=== PATIENT | female | born 1945 | race Caucasian/White ===

== ENCOUNTER → 2017-01-29 | Outpatient (CLI) | payer OTHER, MEDICARE ==
[2017-01-29 11:54] LABS: BASO % 0.3 %; BASO ABS # 0.02 K/uL (0-0.2); COMPLETE YES; EOS % 2.3 %; HEMATOCRIT 40.2 % (37-47); LYMPH % 42.8 %; MEAN CELL VOLUME 97.1 fL (80-100); MEAN CORPUSCULAR HEMOGLOBIN 33.1 pg (25-34); MEAN CORPUSCULAR HGB CONC 34.1 g/dl (32-36); MEAN PLATELET VOLUME 10.3 fL (7.4-10.4); MONO % 7.1 %; NEUT % 47.5 %; PLATELET COUNT 248 K/uL (130-400); RED BLOOD COUNT 4.14 M/uL (4.2-5.4); WHITE BLOOD COUNT 7.01 K/uL (4.8-10.8)
[2017-01-29 12:12] LABS: BLOOD UREA NITROGEN 16 mg/dl (7-18); BUN/CREATININE RATIO 17.2 (10-20); CALCIUM 9.4 mg/dl (8.5-10.1); CARBON DIOXIDE 25 mmol/L (21-32); CHLORIDE 105 mmol/L (98-107); CREATININE 0.94 mg/dl (0.60-1.20); GLUCOSE 80 mg/dl (70-99); POTASSIUM 4.1 mmol/L (3.5-5.1); SODIUM 139 mmol/L (136-145)
== END | disposition home or self-care (01) ==
LOC: C.LAB1850 09:45
PROVIDERS: ATTEND Internal Medicine
DX: E55.9 Vitamin D deficiency, unspecified (principal); R06.02 Shortness of breath

== ENCOUNTER 2021-03-15 14:09 | Inpatient (IN) ==
[2021-03-15] MEDS ORDERED: ACETAMINOPHEN 1000 MG/100 ML IV IV STA (14:45)
[2021-03-15] MEDS ORDERED: ONDANSETRON INJ 2 MG/ML 2 ML VIAL IV STA (14:45)
[2021-03-15] MEDS ORDERED: MoRPHine SULFATE 2 MG/ML CARP IV PRN (14:45)
--- NOTE | 2021-03-15 15:09 | Emergency Department Note ---
Impression & Plan Acute right hip pain, Closed hip fracture, Fall ED Provider Note NAME: VENESSA PETERS AGE: 75 SEX: F : 1945 ARRIVES VIA: Ambulance INFORMANT: [Patient] ED PROVIDER(S): [Javi Rosales MD] CHIEF COMPLAINT: Right hip pain HISTORY OF PRESENT ILLNESS: Patient is a 75-year-old female who states that about an hour and a half ago she tripped and fell landing on her right hip. She cannot walk and the pain is an 8/10. No other injuries. She did not lose her consciousness, she did not hit her head. She has no neck pain, back pain, extremity pain. There is no nu mbness or tingling down in the right leg. She was brought by ambulance. Of note, she is not on any blood thinners. The patient has recently been in baseline health. REVIEW OF SYSTEMS: See HPI for pertinent positives and negatives. A total of ten systems were reviewed and were otherwise negative. PMHx/PSHx: See Below SOCIAL HISTORY: See Below. PHYSICAL EXAM: GENERAL: Patient is in moderate distress from pain. HEENT: No acute trauma, normocephalic atraumatic, mucous membranes moist, no nasal congestion, no scleral icterus. NECK: No stridor, no adenopathy, no C-spine tenderness, trachea is midline. LUNGS: Clear to auscultation bilaterally, no wheeze, no rhonchi, breath sounds equal. HEART: Without murmurs gallops or rubs, regular rate and rhythm. ABDOMEN: Soft, nontender, bowel sounds positive, no hernias, no peritonitis. EXTREMITIES: No cyanosis. Patient has pain to palpate the right posterior hip and there is pain to move the hip. She currently is sitting at a 45 degree angle with her knee flexed slightly and her hip externally rotated. No evidence for distal right lower extremity neurovascular compromise. NEUROLOGIC: Oriented x 3, no acute motor or sensory deficits, no focal weakness. SKIN: No rash, no jaundice, no diaphoresis. DIFFERENTIAL DIAGNOSIS: Fracture, dislocation, neurovascular compromise, contusion, hematoma, compartme nt syndrome, soft tissue injury, as well as other pathologies. EMERGENCY DEPARTMENT COURSE/PROCEDURES: ECG: Indication was possible hip fracture. The ECG shows a normal sinus rhythm with some baseline diffuse artifact. There is some nonspecific ST change in the inferior and lateral leads. No ST elevation, no PVCs. The rate is 70, the QTc is 462. Continuous Cardiac Monitoring: An order was placed for continuous cardiac monitoring. The monitor shows a rate of 68 with normal sinus rhythm. MEDICAL DECISION MAKING: There is a mild leukocytosis, this certainly could be consistent with infection or just her pain. There is a normal hemoglobin and platelet count. There is no coagulopathy. No concerning electrolyte abnormality, no kidney failure. No liver enzyme elevation. Urinalysis does not show infection. Covid and flu testing returned negative. Chest film did not show pneumonia or CHF. Right hip and pelvis films were performed and there is an intertrochanteric right hip fracture, no pelvic fracture. On exam, there was no evidence for right lower extremity neurovascular compromise. The patient was given IV morphine for pain, she eventually was given IV Dilaudid, IV Toradol and IV Tylenol. She was given IV Zofran. The patient is more comfortable since being medicated. I did speak with the patient and her family about the findings. I did consult orthopedics and spoke with the on-call hospitalist. Case management has been involved. Patient is going to require orthopedic intervention. It appears her injury complex is isolated to the right hip. Past Med/Surg History Medical History Hx of basal cell carcinoma Hx of complications due to general anesthesia Hx of endometriosis Hx of hematuria Hx of migraine with aura Surgical History H/O colonoscopy History of tubal ligation Hx of cholecystectomy Hx of tonsillectomy Family History Other Bladder cancer Breast cancer Gastrointestinal bleeding Hypertension Kidney stones Multiple sclerosis Social History Smoking Status: Never smoker Hx Alcohol Use: No Hx Substance Use: No marital status: current occupational status: retired Feels Safe at Home: Yes Seatbelt Use: always Allergies Allergies Allergy/AdvReac Type Severity Reaction Status Date / Time acetaminophen [From Percocet] AdvReac Verified 11/07/20 08:57 oxycodone [From Percocet] AdvReac Verified 11/07/20 08:57 Penicillins AdvReac Verified 11/07/20 08:57 verapamil AdvReac Verified 11/07/20 08:57 Codeine Derivatives Allergy Mild Uncoded 08/02/20 09:49 Home Meds Home Medications Medication Instructions Recorded Confirmed cholecalciferol (vitamin D3) 50 2,000 units PO DAILY cap 09/22/19 03/15/21 mcg (2,000 unit) capsule escitalopram oxalate 20 mg tablet 20 mg PO DAILY #30 tab 09/22/19 03/15/21 omeprazole 20 mg capsule,delayed 20 mg PO DAILY #30 cap 09/22/19 03/15/21 release Previous Rx's Medication Instructions Recorded albuterol sulfate 90 mcg/actuation 2 inh INHALATION Q4H PRN #8.5 g 08/13/20 aerosol inhaler Results & Data (ED) Vital Signs Vital Signs - 24 hr 03/15/21 14:13 03/15/21 15:53 03/15/21 17:00 Temperature 36.7 C Temperature Source Oral Pulse Rate 68 Pulse Rate [Apical] 78 95 H Respiratory Rate 18 18 18 Blood Pressure 166/80 H Blood Pressure [Left Arm] 172/86 H 169/99 H Blood Pressure Mean 108 Blood Pressure Mean [Left Arm] 114 122 Pulse Oximetry 99 98 97 Oxygen Delivery Method Room Air Room Air Room Air Sepsis Recent Fever Within 48 Hours No Sepsis New/Unexplained Change in Mental Status No Sepsis Action Taken by Nursing No Action Required Home Medications Current Medication List: was personally reviewed by me Laboratory Data Attestation: I reviewed the patient's lab results. Result diagrams: 03/15/21 15:00 03/15/21 15:00 Lab Results 03/15/21 03/15/21 03/15/21 Range/Units 13:40 15:00 15:00 WBC 14.18 H (4.8-10.8) K/uL RBC 4.21 (4.2-5.4) M/uL Hgb 14.4 (12.0-16.0) g/dL Hct 41.2 (37-47) % MCV 97.9 (80-100) fL MCH 34.2 H (25-34) pg MCHC 35.0 (32-36) g/dL RDW Std Deviation 45.9 (36.4-46.3) fL RDW Coeff of Rod 12.9 (11.5-14.5) % Plt Count 301 (130-400) K/uL MPV 9.8 (7.4-10.4) fL Immature Gran % (Auto) 0.4 % Neut % (Auto) 77.6 % Lymph % (Auto) 15.9 % [place] % (Auto) 5.2 % Eos % (Auto) 0.8 % Baso % (Auto) 0.1 % Neut # (Auto) 10.99 H (1.4-6.5) K/uL Lymph # (Auto) 2.26 (1.2-3.4) K/uL [place] # (Auto) 0.74 H (0.11-0.59) K/uL Eos # (Auto) 0.12 (0-0.5) K/uL Baso # (Auto) 0.02 (0-0.2) K/uL Immature Gran # (Auto) 0.05 H (0.00-0.02) K/uL PT 10.2 (9.0-12.0) Seconds INR 1.0 (0.9-1.1) APTT 22.3 (21.0-31.0) Seconds PTT Ratio 0.8 Sodium (136-145) mmol/L Potassium (3.5-5.1) mmol/L Chloride (98-107) mmol/L Carbon Dioxide (21-32) mmol/L Anion Gap (3-11) BUN (7-18) mg/dl Creatinine (0.6-1.2) mg/dl Est Cr Clr Drug Dosing ml/min Est GFR ( Amer) Est GFR (Non-Af Amer) BUN/Creatinine Ratio (10-20) Glucose (70-99) mg/dl Calcium (8.5-10.1) mg/dl Total Bilirubin (0.2-1) mg/dl AST (15-37) U/L ALT (12-78) U/L Alkaline Phosphatase (45-117) U/L Total Protein (6.4-8.2) gm/dl Albumin (3.4-5.0) gm/dl Globulin (2.5-4.0) gm/dl Albumin/Globulin Ratio (0.9-2) Urine Color Yellow Urine Appearance Clear (Clear) Urine pH 5.5 (4.5-7.5) Ur Specific [place] 1.024 (1.000-1.030) Urine Protein Negative (Negative) Urine Glucose (UA) Negative (Negative) Urine Ketones 1+ H (Negative) Urine Blood Negative (Negative) Urine Nitrite Negative (Negative) Urine Bilirubin Negative (Negative) Urine Urobilinogen Negative (Negative) Ur Leukocyte Esterase Negative (Negative) COVID-19 Eval Order SARS-CoV-2 (PCR) (Negative) Influenza Type A (PCR) (Neg) Influenza Type B (PCR) (Neg) RSV (RT-PCR) (Neg) Blood Type Antibody Screen 03/15/21 03/15/21 03/15/21 Range/Units 15:00 15:08 16:45 WBC (4.8-10.8) K/uL RBC (4.2-5.4) M/uL Hgb (12.0-16.0) g/dL Hct (37-47) % MCV (80-100) fL MCH (25-34) pg MCHC (32-36) g/dL RDW Std Deviation (36.4-46.3) fL RDW Coeff of Rod (11.5-14.5) % Plt Count (130-400) K/uL MPV (7.4-10.4) fL Immature Gran % (Auto) % Neut % (Auto) % Lymph % (Auto) % [place] % (Auto) % Eos % (Auto) % Baso % (Auto) % Neut # (Auto) (1.4-6.5) K/uL Lymph # (Auto) (1.2-3.4) K/uL [place] # (Auto) (0.11-0.59) K/uL Eos # (Auto) (0-0.5) K/uL Baso # (Auto) (0-0.2) K/uL Immature Gran # (Auto) (0.00-0.02) K/uL PT (9.0-12.0) Seconds INR (0.9-1.1) APTT (21.0-31.0) Seconds PTT Ratio Sodium 138 (136-145) mmol/L Potassium 3.7 (3.5-5.1) mmol/L Chloride 108 H (98-107) mmol/L Carbon Dioxide 25 (21-32) mmol/L Anion Gap 5.0 (3-11) BUN 17 (7-18) mg/dl Creatinine 0.83 (0.6-1.2) mg/dl Est Cr Clr Drug Dosing 57.3 ml/min Est GFR ( Amer) 81.1 Est GFR (Non-Af Amer) 70.0 BUN/Creatinine Ratio 20.8 H (10-20) Glucose 129 H (70-99) mg/dl Calcium 8.9 (8.5-10.1) mg/dl Total Bilirubin 0.5 (0.2-1) mg/dl AST 31 (15-37) U/L ALT 41 (12-78) U/L Alkaline Phosphatase 86 (45-117) U/L Total Protein 7.4 (6.4-8.2) gm/dl Albumin 3.6 (3.4-5.0) gm/dl Globulin 3.8 (2.5-4.0) gm/dl Albumin/Globulin Ratio 0.9 (0.9-2) Urine Color Urine Appearance (Clear) Urine pH (4.5-7.5) Ur Specific [place] (1.000-1.030) Urine Protein (Negative) Urine Glucose (UA) (Negative) Urine Ketones (Negative) Urine Blood (Negative) Urine Nitrite (Negative) Urine Bilirubin (Negative) Urine Urobilinogen (Negative) Ur Leukocyte Esterase (Negative) COVID-19 Eval Order CovFluRsv at [facility] SARS-CoV-2 (PCR) (Negative) Influenza Type A (PCR) (Neg) Influenza Type B (PCR) (Neg) RSV (RT-PCR) (Neg) Blood Type O Positive Antibody Screen NEGATIVE 03/15/21 Range/Units 16:45 WBC (4.8-10.8) K/uL RBC (4.2-5.4) M/uL Hgb (12.0-16.0) g/dL Hct (37-47) % MCV (80-100) fL MCH (25-34) pg MCHC (32-36) g/dL RDW Std Deviation (36.4-46.3) fL RDW Coeff of Rod (11.5-14.5) % Plt Count (130-400) K/uL MPV (7.4-10.4) fL Immature Gran % (Auto) % Neut % (Auto) % Lymph % (Auto) % [place] % (Auto) % Eos % (Auto) % Baso % (Auto) % Neut # (Auto) (1.4-6.5) K/uL Lymph # (Auto) (1.2-3.4) K/uL [place] # (Auto) (0.11-0.59) K/uL Eos # (Auto) (0-0.5) K/uL Baso # (Auto) (0-0.2) K/uL Immature Gran # (Auto) (0.00-0.02) K/uL PT (9.0-12.0) Seconds INR (0.9-1.1) APTT (21.0-31.0) Seconds PTT Ratio Sodium (136-145) mmol/L Potassium (3.5-5.1) mmol/L Chloride (98-107) mmol/L Carbon Dioxide (21-32) mmol/L Anion Gap (3-11) BUN (7-18) mg/dl Creatinine (0.6-1.2) mg/dl Est Cr Clr Drug Dosing ml/min Est GFR ( Amer) Est GFR (Non-Af Amer) BUN/Creatinine Ratio (10-20) Glucose (70-99) mg/dl Calcium (8.5-10.1) mg/dl Total Bilirubin (0.2-1) mg/dl AST (15-37) U/L ALT (12-78) U/L Alkaline Phosphatase (45-117) U/L Total Protein (6.4-8.2) gm/dl Albumin (3.4-5.0) gm/dl Globulin (2.5-4.0) gm/dl Albumin/Globulin Ratio (0.9-2) Urine Color Urine Appearance (Clear) Urine pH (4.5-7.5) Ur Specific [place] (1.000-1.030) Urine Protein (Negative) Urine Glucose (UA) (Negative) Urine Ketones (Negative) Urine Blood (Negative) Urine Nitrite (Negative) Urine Bilirubin (Negative) Urine Urobilinogen (Negative) Ur Leukocyte Esterase (Negative) COVID-19 Eval Order SARS-CoV-2 (PCR) NEGATIVE (Negative) Influenza Type A (PCR) Negative (Neg) Influenza Type B (PCR) Negative (Neg) RSV (RT-PCR) Negative (Neg) Blood Type Antibody Screen Administered Medications Discontinued Medications Acetaminophen (Acetaminophen 1000 Mg/100 Ml Iv) 1,000 mg IV NOW STA Stop: 03/15/21 14:46 Last Admin: 03/15/21 15:09 Dose: 1,000 mg Documented by: [id number] Hydromorphone HCl (Hydromorphone Inj 0.5 Mg/0.5 Ml Syr) 0.5 mg IV NOW STA Stop: 03/15/21 15:35 Last Admin: 03/15/21 15:50 Dose: 0.5 mg Documented by: [id number] Ketorolac Tromethamine (Ketorolac Tromethamine 15 Mg/Ml Vial) 15 mg IV NOW STA Stop: 03/15/21 15:35 Last Admin: 03/15/21 15:49 Dose: 15 mg Documented by: [id number] Morphine Sulfate (Morphine Sulfate 2 Mg/Ml Carp) 4 mg IV Q1H PRN PRN Reason: Moderate Pain (Rating 3,4,5,6) Stop: 03/29/21 14:44 Last Admin: 03/15/21 15:09 Dose: 4 mg Documented by: [id number] Ondansetron HCl (Ondansetron Inj 2 Mg/Ml 2 Ml Vial) 4 mg IV NOW STA Stop: 03/15/21 14:46 Last Admin: 03/15/21 15:09 Dose: 4 mg Documented by: [id number] Imaging Data Radiologist's Impression: Chest X-Ray 03/15/21 14:45 SINGLE VIEW CHEST CLINICAL HISTORY: Fall. Hip fracture. FINDINGS: An AP, portable, upright chest radiograph is compared to study dated 10/26/2019. The cardiomediastinal silhouette is unremarkable. Chronic interstitial thickening is similar to previous. There is mild bibasilar atelec tasis. No airspace consolidation or large pleural effusion is identified. No pneumothorax is seen. The skeletal structures are osteopenic. There are healed left-sided rib fractures. IMPRESSION: No active disease in the chest. ACT 112: Negative or not required by law. Electronically signed by: Javi Senior M.D. 03/15/2021 3:33 PM Hip/Pelvis X-Ray 03/15/21 14:45 XR hip RT 2V w pelvis CLINICAL HISTORY: fall, pain COMPARISON: CT of the abdomen and pelvis June 12, 2015. FINDINGS: Note is made of an acute comminuted displaced intertrochanteric fracture of the right femur with subtrochanteric extension. No acute fracture within the pelvis is identified. No proximal left femoral fracture is noted. IMPRESSION: Acute comminuted displaced intertrochanteric fracture of the right femur with subtrochanteric extension. ACT 112: Negative or not required by law. Electronically signed by: Juan Weber M.D. 03/15/2021 4:23 PM Head Trauma GCS Score: 15 Discharge Plan Visit Data Chief Complaint: Hip Pain ED Provider: Javi Rosales Discharge Problem: Acute right hip pain, Closed hip fracture, Fall Patient Disposition: Home - Self-Care Condition: Fair Forms Stand Alone Forms: [facility], Virtual Emergency Department, Important Visit Information Prescriptions Prescriptions: No Action albuterol sulfate 90 mcg/actuation HFA aerosol inhaler 2 inh inhalation Q4H PRN (Reason: shortness of breath or wheezing) Qty: 8.5 RF: 5 escitalopram oxalate 20 mg tablet 20 mg PO DAILY Qty: 30 RF: 0 omeprazole 20 mg capsule,delayed release(DR/EC) 20 mg PO DAILY Qty: 30 RF: 0 cholecalciferol (vitamin D3) 2,000 unit capsule 2,000 units PO DAILY RF: 0 Referrals Referrals: Amado Watson MD [Primary Care Provider] - Discharge Problem: Closed hip fracture Qualifiers: Encounter type: initial encounter Laterality: right Qualified Code(s): S72.001A - Fracture of unspecified part of neck of right femur, initial encounter for closed fracture Fall Qualifiers: Encounter type: initial encounter Qualified Code(s): W19.XXXA - Unspecified fall, initial encounter
[2021-03-15 15:15] LABS: Basophils # (auto) 0.02 K/uL (0-0.2); Basophils % (auto) 0.1 %; Eosinophils # (auto) 0.12 K/uL (0-0.5); Eosinophils % (auto) 0.8 %; Hematocrit (blood only) 41.2 % (37-47); Hemoglobin 14.4 g/dL (12.0-16.0); Immature Granulocytes # (auto) 0.05 K/uL (0.00-0.02); Immature Granulocytes % (auto) 0.4 %; Lymphocytes # (auto) 2.26 K/uL (1.2-3.4); Lymphocytes % (auto) 15.9 %; Mean Corpuscular Hemoglobin 34.2 pg (25-34); Mean Corpuscular Volume 97.9 fL (80-100); Mean Platelet Volume 9.8 fL (7.4-10.4); Monocytes # (auto) 0.74 K/uL (0.11-0.59); Monocytes % (auto) 5.2 %; Neutrophils # (auto) 10.99 K/uL (1.4-6.5); Neutrophils % (auto) 77.6 %; Platelet Count 301 K/uL (130-400); RDW Coefficient of Variation 12.9 % (11.5-14.5); RDW Standard Deviation 45.9 fL (36.4-46.3); Red Blood Count 4.21 M/uL (4.2-5.4); White Blood Count 14.18 K/uL (4.8-10.8)
[2021-03-15] MEDS ORDERED: KETOROLAC TROMETHAMINE 15 MG/ML VIAL IV STA (15:34)
[2021-03-15] MEDS ORDERED: HYDROmorphone INJ 0.5 MG/0.5 ML SYR IV STA (15:34)
--- NOTE | 2021-03-15 15:34 | XRay Report ---
SINGLE VIEW CHEST CLINICAL HISTORY: Fall. Hip fracture. FINDINGS: An AP, portable, upright chest radiograph is compared to study dated 10/26/2019. The cardiom ediastinal silhouette is unremarkable. Chronic interstitial thickening is similar to previous. There is mild bibasilar atelectasis. No airspace consolidation or large pleural effusion is identified. No pneumothorax is seen. The skeletal structures are osteopenic. There are healed left-sided rib fractur es. IMPRESSION: No active disease in the chest. ACT 112: Negative or not required by law. Electronically signed by: Javi Senior M.D. 03/15/2021 3:33 PM
[2021-03-15 15:37] LABS: Partial Thromboplastin Ratio 0.8; Partial Thromboplastin Time 22.3 Seconds (21.0-31.0); Prothrombin Time 10.2 Seconds (9.0-12.0)
[2021-03-15 15:39] LABS: Albumin Level 3.6 gm/dl (3.4-5.0); BUN Creatinine Ratio 20.8 (10-20); Calcium 8.9 mg/dl (8.5-10.1); Creatinine Clr Calc Pharmacy 57.3 ml/min; Est GFR (African American) 81.1; Potassium 3.7 mmol/L (3.5-5.1)
[2021-03-15 15:40] LABS: Albumin Globulin Ratio 0.9 (0.9-2); Bilirubin,Total 0.5 mg/dl (0.2-1); Globulin 3.8 gm/dl (2.5-4.0); Total Protein 7.4 gm/dl (6.4-8.2)
[2021-03-15 15:52] LABS: Appearance Urine Clear (Clear); Bilirubin Urine Negative (Negative); Blood Urine Negative (Negative); Color Urine Yellow; Glucose Urine UA Negative (Negative); Ketones Urine 1+ (Negative); Leukocyte Esterase Urine Negative (Negative); Nitrite Urine Negative (Negative); Protein Urine Negative (Negative); Specific Gravity Urine 1.024 (1.000-1.030); Urobilinogen Urine Negative (Negative); pH Urine 5.5 (4.5-7.5)
--- NOTE | 2021-03-15 16:25 | XRay Report ---
XR hip RT 2V w pelvis CLINICAL HISTORY: fall, pain COMPARISON: CT of the abdomen and pelvis June 12, 2015. FINDINGS: Note is made of an acute comminuted displaced intertrochanteric fracture of the right femu r with subtrochanteric extension. No acute fracture within the pelvis is identified. No proximal left femoral fracture is noted. IMPRESSION: Acute comminuted displaced intertrochanteric fracture of the right femur with subtrochant julio extension. ACT 112: Negative or not required by law. Electronically signed by: Juan Weber M.D. 03/15/2021 4:23 PM
--- NOTE | 2021-03-15 16:27 | Electrocardiogram Report ---
Test Reason : Blood Pressure : / mmHG Vent. Rate : 070 BPM Atrial Rate : 070 BPM P-R Int : 144 ms QRS Dur : 074 ms QT Int : 428 ms P-R-T Axes : 024 049 -02 degrees QTc Int : 462 ms Poor data quality, interpretation may be adversely affected Normal sinus rhythm Nonspecific ST and T wave abnormality Abnormal ECG No previous ECGs available Confirmed by Kota Berger ([id number]) on 03/15/2021 4:26:34 PM Referred By: Confirmed By:Tito Berger
--- NOTE | 2021-03-15 17:03 | Orthopedic Consultation ---
Date of Consultation March 15, 2021 Assessment & Plan (1) Hip fracture: The patient is a 75 year old female who sustained a right hip fracture from a ground level fall. The patients treatment options of conservative versus surgical intervention were discussed. Since the patient was an amb ulatory prior to the injury and to avoid the risks of bed sores, pulmonary complications, and to give the best chance for ambulation, I recommended surgery. The patient understands the risks of surgery, which include but are not limited to: bleeding, infection, re-operation, damage to nerves and arteries, continued pain, failure of the hardware, mal-union, non-union, DVT, and . In addition the patient is aware of the 20-30% morbidity associated with hip fracture for up to 1 year following a hip fracture. The patient has elected to proceed with surgery and the informed consent was signed. The patient understands all of these instructions and explanations, all of their questions have been satisfactorily addressed. Placed on the add-on schedule for tomorrow. Will proceed with surgery tomorrow, Thursday, if medically stable. Patient may eat now from an ortho standpoint, but will be NPO after midnight. The patient will be NWB RLE. TEDs and foot pumps to LLE. Antibiotics destination imagination coordinator to OR. Present on Admission?: Yes History of Present Illness Reason for Consultation: Right hip fracture Requesting Physician: Julian Washington MD History of Present Illness 75 year old female brought to the ED via ambulance after ground level fall. Denies any other injuries. Has 8/10 right hip pain and is unable to bear weight. Denied any chest pain, SOB, or dizziness. She normally walks without any assisted devices, unless hiking she will use a walking stick. Allergies Allergy/AdvReac Type Severity Reaction Status Date / Time acetaminophen [From Percocet] AdvReac Verified 11/07/20 08:57 oxycodone [From Percocet] AdvReac Verified 11/07/20 08:57 Penicillins AdvReac Verified 11/07/20 08:57 verapamil AdvReac Verified 11/07/20 08:57 Codeine Derivatives Allergy Mild Uncoded 08/02/20 09:49 Home Medications Medication Instructions Recorded Confirmed Type cholecalciferol (vitamin D3) 50 2,000 units PO DAILY cap 09/22/19 03/15/21 History mcg (2,000 unit) capsule escitalopram oxalate 20 mg tablet 20 mg PO DAILY #30 tab 09/22/19 03/15/21 History omeprazole 20 mg capsule,delayed 20 mg PO DAILY #30 cap 09/22/19 03/15/21 History release albuterol sulfate 90 mcg/actuation 2 inh INHALATION Q4H PRN #8.5 g 08/13/20 03/15/21 Rx aerosol inhaler Patient History Medical History Hx of basal cell carcinoma Hx of complications due to general anesthesia Hx of endometriosis Hx of hematuria Hx of migraine with aura Surgical History H/O colonoscopy History of tubal ligation Hx of cholecystectomy Hx of tonsillectomy Family History Other Bladder cancer Breast cancer Gastrointestinal bleeding Hypertension Kidney stones Multiple sclerosis Social History Smoking Status: Never smoker Hx Alcohol Use: No Hx Substance Use: No marital status: current occupational status: retired Feels Safe at Home: Yes Seatbelt Use: always Review of Systems Review of Systems: All systems reviewed & are unremarkable except as noted in HPI & below Physical Exam Physical Exam: RLE: Sensation to light touch intact. Wiggling toes and ankles. Calf is soft and nontender. Leg is shortened, slightly externally rotated. Results & Data ([facility]) Vital Signs (Past 12 Hours) Vital Signs Temp Pulse Pulse Resp BP BP Pulse Ox 03/15/21 15:53 78 18 172/86 H 98 03/15/21 14:13 36.7 C 68 18 166/80 H 99 Laboratory Results 03/15/21 03/15/21 03/15/21 Range/Units 16:45 16:45 15:08 WBC (4.8-10.8) K/uL RBC (4.2-5.4) M/uL Hgb (12.0-16.0) g/dL Hct (37-47) % MCV (80-100) fL MCH (25-34) pg MCHC (32-36) g/dL RDW Std Deviation (36.4-46.3) fL RDW Coeff of Rod (11.5-14.5) % Plt Count (130-400) K/uL MPV (7.4-10.4) fL Immature Gran % (Auto) % Neut % (Auto) % Lymph % (Auto) % Prowers % (Auto) % Eos % (Auto) % Baso % (Auto) % Neut # (Auto) (1.4-6.5) K/uL Lymph # (Auto) (1.2-3.4) K/uL Prowers # (Auto) (0.11-0.59) K/uL Eos # (Auto) (0-0.5) K/uL Baso # (Auto) (0-0.2) K/uL Immature Gran # (Auto) (0.00-0.02) K/uL PT (9.0-12.0) Seconds INR (0.9-1.1) APTT (21.0-31.0) Seconds PTT Ratio Sodium (136-145) mmol/L Potassium (3.5-5.1) mmol/L Chloride (98-107) mmol/L Carbon Dioxide (21-32) mmol/L Anion Gap (3-11) BUN (7-18) mg/dl Creatinine (0.6-1.2) mg/dl Est Cr Clr Drug Dosing ml/min Est GFR ( Amer) Est GFR (Non-Af Amer) BUN/Creatinine Ratio (10-20) Glucose (70-99) mg/dl Calcium (8.5-10.1) mg/dl Total Bilirubin (0.2-1) mg/dl AST (15-37) U/L ALT (12-78) U/L Alkaline Phosphatase (45-117) U/L Total Protein (6.4-8.2) gm/dl Albumin (3.4-5.0) gm/dl Globulin (2.5-4.0) gm/dl Albumin/Globulin Ratio (0.9-2) Urine Color Urine Appearance (Clear) Urine pH (4.5-7.5) Ur Specific Mitchell (1.000-1.030) Urine Protein (Negative) Urine Glucose (UA) (Negative) Urine Ketones (Negative) Urine Blood (Negative) Urine Nitrite (Negative) Urine Bilirubin (Negative) Urine Urobilinogen (Negative) Ur Leukocyte Esterase (Negative) COVID-19 Eval Order CovFluRsv at [facility] SARS-CoV-2 (PCR) Pending Influenza Type A (PCR) Pending Influenza Type B (PCR) Pending RSV (RT-PCR) Pending Blood Type O Positive Antibody Screen NEGATIVE 03/15/21 03/15/21 03/15/21 Range/Units 15:00 15:00 15:00 WBC 14.18 H (4.8-10.8) K/uL RBC 4.21 (4.2-5.4) M/uL Hgb 14.4 (12.0-16.0) g/dL Hct 41.2 (37-47) % MCV 97.9 (80-100) fL MCH 34.2 H (25-34) pg MCHC 35.0 (32-36) g/dL RDW Std Deviation 45.9 (36.4-46.3) fL RDW Coeff of Rod 12.9 (11.5-14.5) % Plt Count 301 (130-400) K/uL MPV 9.8 (7.4-10.4) fL Immature Gran % (Auto) 0.4 % Neut % (Auto) 77.6 % Lymph % (Auto) 15.9 % Prowers % (Auto) 5.2 % Eos % (Auto) 0.8 % Baso % (Auto) 0.1 % Neut # (Auto) 10.99 H (1.4-6.5) K/uL Lymph # (Auto) 2.26 (1.2-3.4) K/uL Prowers # (Auto) 0.74 H (0.11-0.59) K/uL Eos # (Auto) 0.12 (0-0.5) K/uL Baso # (Auto) 0.02 (0-0.2) K/uL Immature Gran # (Auto) 0.05 H (0.00-0.02) K/uL PT 10.2 (9.0-12.0) Seconds INR 1.0 (0.9-1.1) APTT 22.3 (21.0-31.0) Seconds PTT Ratio 0.8 Sodium 138 (136-145) mmol/L Potassium 3.7 (3.5-5.1) mmol/L Chloride 108 H (98-107) mmol/L Carbon Dioxide 25 (21-32) mmol/L Anion Gap 5.0 (3-11) BUN 17 (7-18) mg/dl Creatinine 0.83 (0.6-1.2) mg/dl Est Cr Clr Drug Dosing 57.3 ml/min Est GFR ( Amer) 81.1 Est GFR (Non-Af Amer) 70.0 BUN/Creatinine Ratio 20.8 H (10-20) Glucose 129 H (70-99) mg/dl Calcium 8.9 (8.5-10.1) mg/dl Total Bilirubin 0.5 (0.2-1) mg/dl AST 31 (15-37) U/L ALT 41 (12-78) U/L Alkaline Phosphatase 86 (45-117) U/L Total Protein 7.4 (6.4-8.2) gm/dl Albumin 3.6 (3.4-5.0) gm/dl Globulin 3.8 (2.5-4.0) gm/dl Albumin/Globulin Ratio 0.9 (0.9-2) Urine Color Urine Appearance (Clear) Urine pH (4.5-7.5) Ur Specific Mitchell (1.000-1.030) Urine Protein (Negative) Urine Glucose (UA) (Negative) Urine Ketones (Negative) Urine Blood (Negative) Urine Nitrite (Negative) Urine Bilirubin (Negative) Urine Urobilinogen (Negative) Ur Leukocyte Esterase (Negative) COVID-19 Eval Order SARS-CoV-2 (PCR) Influenza Type A (PCR) Influenza Type B (PCR) RSV (RT-PCR) Blood Type Antibody Screen 03/15/21 Range/Units 13:40 WBC (4.8-10.8) K/uL RBC (4.2-5.4) M/uL Hgb (12.0-16.0) g/dL Hct (37-47) % MCV (80-100) fL MCH (25-34) pg MCHC (32-36) g/dL RDW Std Deviation (36.4-46.3) fL RDW Coeff of Rod (11.5-14.5) % Plt Count (130-400) K/uL MPV (7.4-10.4) fL Immature Gran % (Auto) % Neut % (Auto) % Lymph % (Auto) % Prowers % (Auto) % Eos % (Auto) % Baso % (Auto) % Neut # (Auto) (1.4-6.5) K/uL Lymph # (Auto) (1.2-3.4) K/uL Prowers # (Auto) (0.11-0.59) K/uL Eos # (Auto) (0-0.5) K/uL Baso # (Auto) (0-0.2) K/uL Immature Gran # (Auto) (0.00-0.02) K/uL PT (9.0-12.0) Seconds INR (0.9-1.1) APTT (21.0-31.0) Seconds PTT Ratio Sodium (136-145) mmol/L Potassium (3.5-5.1) mmol/L Chloride (98-107) mmol/L Carbon Dioxide (21-32) mmol/L Anion Gap (3-11) BUN (7-18) mg/dl Creatinine (0.6-1.2) mg/dl Est Cr Clr Drug Dosing ml/min Est GFR ( Amer) Est GFR (Non-Af Amer) BUN/Creatinine Ratio (10-20) Glucose (70-99) mg/dl Calcium (8.5-10.1) mg/dl Total Bilirubin (0.2-1) mg/dl AST (15-37) U/L ALT (12-78) U/L Alkaline Phosphatase (45-117) U/L Total Protein (6.4-8.2) gm/dl Albumin (3.4-5.0) gm/dl Globulin (2.5-4.0) gm/dl Albumin/Globulin Ratio (0.9-2) Urine Color Yellow Urine Appearance Clear (Clear) Urine pH 5.5 (4.5-7.5) Ur Specific Mitchell 1.024 (1.000-1.030) Urine Protein Negative (Negative) Urine Glucose (UA) Negative (Negative) Urine Ketones 1+ H (Negative) Urine Blood Negative (Negative) Urine Nitrite Negative (Negative) Urine Bilirubin Negative (Negative) Urine Urobilinogen Negative (Negative) Ur Leukocyte Esterase Negative (Negative) COVID-19 Eval Order SARS-CoV-2 (PCR) Influenza Type A (PCR) Influenza Type B (PCR) RSV (RT-PCR) Blood Type Antibody Screen Diagnostic Findings XR hip RT 2V w pelvis CLINICAL HISTORY: fall, pain COMPARISON: CT of the abdomen and pelvis June 12, 2015. FINDINGS: Note is made of an acute comminuted displaced intertrochanteric fracture of the right femur with subtrochanteric extension. No acute fracture within the pelvis is identified. No proximal left femoral fracture is noted. IMPRESSION: Acute comminuted displaced intertrochanteric fracture of the right femur with subtrochanteric extension. I reviewed the images and agree that there is an acute comminuted and displaced right intertrochanteric fracture of the right femur with subtrochanteric extension.
--- NOTE | 2021-03-15 17:21 | History & Physical Report ---
Date of Service March 15, 2021 Assessment & Plan (1) Hip fracture: Fall resulting in Right comminuted displaced intertrochanteric fracture to the right femur - Pain control- Hydromorphone 0.5mg IV PRN, OxyContin IR 5 PO PRN, Tylenol, - Can adjust dosing and frequency if needed - Neurovascular intact and peripheral pulses intact - Orthopaedics evaluated already-- Thank you - NPO after midnight - TEDS/SCDS for VTE prophy tonight (2) Asthma: persistent well controlled - Patient uses her albuterol 1-4 times per week and rarely wakes up at night to use her DUC - Continue albuterol PRN - Continue daily Fluticasone II puffs (3) Arthritis: Tylenol - hold VIT D until post op (4) Depression with anxiety: No acute needs - Continue escitalopram 20 mg (5) Osteoporosis: As above (6) Vitamin D deficiency disease: As above no acute needs (7) GERD (gastroesophageal reflux disease): Continue Omeprazole 20 mg- her symptoms were attributed to poor diet (8) DVT prophylaxis: SCD's and TEDS tonight per ORTHO - Chemoprohy following surgery History of Present Illness Chief Complaint: Fall on hip Primary Care Provider: Amado Watson MD 75 YOF with past medical history of asthma, she reports mitral valve prolapse (but ECHO from 2019with mild MR), anxiety, fall in 2019 with wrist sprain, arthritis. Patient was at home today, when she tripped over a rug and fell directly on to her left hip on a carpeted floor. The patient had immediate pain and could not move her leg. Her called 911 and came to the emergency room. She does not endorse any other pain or trauma following her fall. She denies hitting her head or shoulder. Patient had a fall back in 2019 that resulted in a sprained wrist. She rates her pain now as a 6/10 and is clutching her left hip. Dr. Rosales has already consulted Dr. Washington of orthopaedics and he has evaluated her as well. Patient will be admitted to the medical surgical floor and scheduled for OR tomorrow. She will be kept NPO after midnight. EKG NSR and normal CXR with only noting old left rib fractures She had an ECHO in 2019 for her workup of dyspnea that had mild cocentric LVH EF 60-65% mild MR, normal Aortic Valve- grade I diastolic dysfunction Patient does endorse that she has had difficulty with nausea and vomiting postoperatively before. Her allergy to acetaminophen and oxycodone she reports was GI upset prior to her DX with GERD and since she has been on the omeprazole, she has not had any difficulty. Allergies Allergy/AdvReac Type Severity Reaction Status Date / Time acetaminophen [From Percocet] AdvReac Verified 11/07/20 08:57 oxycodone [From Percocet] AdvReac Verified 11/07/20 08:57 Penicillins AdvReac Verified 11/07/20 08:57 verapamil AdvReac Verified 11/07/20 08:57 Codeine Derivatives Allergy Mild Uncoded 08/02/20 09:49 Home Medications Medication Instructions Recorded Confirmed Type cholecalciferol (vitamin D3) 50 2,000 units PO DAILY cap 09/22/19 03/15/21 History mcg (2,000 unit) capsule escitalopram oxalate 20 mg tablet 20 mg PO DAILY #30 tab 09/22/19 03/15/21 History omeprazole 20 mg capsule,delayed 20 mg PO DAILY #30 cap 09/22/19 03/15/21 History release albuterol sulfate 90 mcg/actuation 2 inh INHALATION Q4H PRN #8.5 g 08/13/20 03/15/21 Rx aerosol inhaler Past Med/Surg History Medical History Hx of basal cell carcinoma Hx of complications due to general anesthesia Hx of endometriosis Hx of hematuria Hx of migraine with aura Surgical History H/O colonoscopy History of tubal ligation Hx of cholecystectomy Hx of tonsillectomy Family History Other Bladder cancer Breast cancer Gastrointestinal bleeding Hypertension Kidney stones Multiple sclerosis Social History Smoking Status: Never smoker Hx Alcohol Use: No Hx Substance Use: No marital status: current occupational status: retired Feels Safe at Home: Yes Seatbelt Use: always Review of Systems Review of Systems: REVIEW OF SYSTEMS: Constitutional: No fever, sweats or chills Eyes: No diplopia, no worsening or blurred vision ENT: normal hearing, no trouble swallowing Respiratory: (+) asthma, No cough, sputum, dyspnea at rest or on exertion Cardiovascular: No chest pain, tightness or palpitations Abdomen: No pain, nausea, vomiting, diarrhea or constipation Musculoskeletal: (+) Rt hip pain, calf pain, swelling Neurologic: No weakness, numbness/tingling, or balance problems Psychiatric: (+) anxiety, (-) depression Skin: No rash or itch Physical Exam Physical Exam: PHYSICAL EXAM: General: awake, alert, no apparent distress but appears uncomfortable Head: Normocephalic, atraumatic ENT: PERRL, EOMI, no pharyngeal exudate, mucous membranes moist Neuro: AAO x 3, speech clear and appropriate, strength intact bilaterally 5/5, sensation intact and equal all extremities and dermatomes, no pronator drift Chest: equal rise and fall of the chest, no accessory muscle use, no heaves or thrills, Clear to auscultation, on room air, Cardiac: Regular rate and rhythm, S1S2, telemetry reviewed, skin warm dry, cap refill <3 seconds, peripheral pulses +2 no JVD, no murmur, no edema GI: NABS x 4 quadrants, soft, nontender to palpation, no rebound, guarding or tenderness : Knapp catheter to gravity draining maeve colored urine, no pain, no CVA tenderness, Extremities: right hip pain, no rotation, but shortening of the right leg. NV/CV intact to entire right leg, no peripheral edema or erythema, calfs nontender to palpation Psych: Normal mood and affect Skin: no rash or erythema Results & Data Results & Data ([facility]) Vital Signs (Past 12 Hours) Vital Signs Temp Pulse Pulse Resp BP BP Pulse Ox 03/15/21 17:00 95 H 18 169/99 H 97 03/15/21 15:53 78 18 172/86 H 98 03/15/21 14:13 36.7 C 68 18 166/80 H 99 Laboratory Results Abnormal lab results 03/15/21 03/15/21 03/15/21 Range/Units 13:40 15:00 15:00 WBC 14.18 H (4.8-10.8) K/uL MCH 34.2 H (25-34) pg Neut # (Auto) 10.99 H (1.4-6.5) K/uL Aiken # (Auto) 0.74 H (0.11-0.59) K/uL Immature Gran # (Auto) 0.05 H (0.00-0.02) K/uL Chloride 108 H (98-107) mmol/L BUN/Creatinine Ratio 20.8 H (10-20) Glucose 129 H (70-99) mg/dl Urine Ketones 1+ H (Negative) Diagnostic Findings SINGLE VIEW CHEST CLINICAL HISTORY: Fall. Hip fracture. FINDINGS: An AP, portable, upright chest radiograph is compared to study dated 10/26/2019. The cardiomediastinal silhouette is unremarkable. Chronic interstitial thickening is similar to previous. There is mild bibasilar atelectasis. No airspace consolidation or large pleural effusion is identified. No pneumothorax is seen. The skeletal structures are osteopenic. There are healed left-sided rib fractures. IMPRESSION: No active disease in the chest. XR hip RT 2V w pelvis CLINICAL HISTORY: fall, pain COMPARISON: CT of the abdomen and pelvis June 12, 2015. FINDINGS: Note is made of an acute comminuted displaced intertrochanteric fracture of the right femur with subtrochanteric extension. No acute fracture within the pelvis is identified. No proximal left femoral fracture is noted. IMPRESSION: Acute comminuted displaced intertrochanteric fracture of the right femur with subtrochanteric extension. Medications Administered Discontinued Medications Acetaminophen (Acetaminophen 1000 Mg/100 Ml Iv) 1,000 mg IV NOW STA Stop: 03/15/21 14:46 Last Admin: 03/15/21 15:09 Dose: 1,000 mg Documented by: [id number] Hydromorphone HCl (Hydromorphone Inj 0.5 Mg/0.5 Ml Syr) 0.5 mg IV NOW STA Stop: 03/15/21 15:35 Last Admin: 03/15/21 15:50 Dose: 0.5 mg Documented by: [id number] Ketorolac Tromethamine (Ketorolac Tromethamine 15 Mg/Ml Vial) 15 mg IV NOW STA Stop: 03/15/21 15:35 Last Admin: 03/15/21 15:49 Dose: 15 mg Documented by: [id number] Morphine Sulfate (Morphine Sulfate 2 Mg/Ml Carp) 4 mg IV Q1H PRN PRN Reason: Moderate Pain (Rating 3,4,5,6) Stop: 03/29/21 14:44 Last Admin: 03/15/21 15:09 Dose: 4 mg Documented by: [id number] Ondansetron HCl (Ondansetron Inj 2 Mg/Ml 2 Ml Vial) 4 mg IV NOW STA Stop: 03/15/21 14:46 Last Admin: 03/15/21 15:09 Dose: 4 mg Documented by: [id number] Home Medications cholecalciferol (vitamin D3) 50 mcg (2,000 unit) capsule 2,000 units PO DAILY cap 09/22/19 [History Confirmed 03/15/21] escitalopram oxalate 20 mg tablet 20 mg PO DAILY #30 tab 09/22/19 [History Confirmed 03/15/21] omeprazole 20 mg capsule,delayed release 20 mg PO DAILY #30 cap 09/22/19 [History Confirmed 03/15/21] albuterol sulfate 90 mcg/actuation aerosol inhaler 2 inh INHALATION Q4H PRN #8.5 g 08/13/20 [Rx Confirmed 03/15/21] Active Medications Acetaminophen (Acetaminophen 325 Mg Tab) 650 mg PO Q6H PRN PRN Reason: Pain & Pre PT Stop: 04/14/21 17:08 Hydromorphone HCl (Hydromorphone Inj 0.5 Mg/0.5 Ml Syr) 0.5 mg IV Q2H PRN PRN Reason: Pain Stop: 03/29/21 17:08 ECG Additional Comments: Vent. Rate : 070 BPM Atrial Rate : 070 BPM P-R Int : 144 ms QRS Dur : 074 ms QT Int : 428 ms P-R-T Axes : 024 049 -02 degrees QTc Int : 462 ms Poor data quality, interpretation may be adversely affected Normal sinus rhythm Nonspecific ST and T wave abnormality Abnormal ECG No previous ECGs available Confirmed by Kota Berger ([id number]) on 03/15/2021 4:26:34 PM Code Status & VTE Plan Code Status CODE: FULL VTE: SCD's TEDS pre-op, Chemoprophy post operative VTE Prophylaxis Plan VTE Prophylaxis will be ordered: Yes Supervising Physician Co-Signing Physician Notes I supervised ROBERTA Kathleen on this admission. I interviewed and examined the patient independently of him. The plan is as written in his note except for any following changes/exceptions: None 75yo F arriving with a comminuted displaced intertrochanteric fracture of the right femur with subtrochanteric extension after a mechanical fall. She reports continued pain to me despite analgesics offered in the ER. - Pain control - Orthopedics consulted - Other medical issues seem at baseline. Will largely continue home meds. PG Care Time/CCT Total # of Minutes Spent Total Time Spent with Patient: Total time spent is greater than 50% in co ordination of care (as documented) at patient's floor/unit and/or counseling patient: Coding Level of Care Code 60182 Initial Inpt Care Lvl 3 Diagnoses Hip fracture S72.001A Encounter type: initial encounter Fracture type: closed Laterality: right Asthma J45.909 Asthma complication type: uncomplicated Asthma persistence: unspecified Asthma severity: mild Arthritis M19.90 Depression with anxiety F41.8 Osteoporosis M81.0 Osteoporosis type: unspecified Presence of current pathological fracture: unspecified Vitamin D deficiency disease E55.9 GERD (gastroesophageal reflux disease) K21.9 DVT prophylaxis Z29.9 (1) Hip fracture Encounter type: initial encounter Fracture type: closed Laterality: right Qualified Code(s): S72.001A - Fracture of unspecified part of neck of right femur, initial encounter for closed fracture (2) Osteoporosis Osteoporosis type: unspecified Presence of current pathological fracture: unspecified Qualified Code(s): M81.0 - Age-related osteoporosis without current pathological fracture (3) Asthma Asthma complication type: uncomplicated Asthma persistence: unspecified Asthma severity: mild Qualified Code(s): J45.909 - Unspecified asthma, uncomplicated
[2021-03-15 17:39] LABS: Influenza A virus by PCR Negative (Neg); Influenza B virus by PCR Negative (Neg); RSV by PCR Negative (Neg); SARS CoV2 RNA(COVID-19) InHosp NEGATIVE (Negative)
--- NOTE | 2021-03-15 17:56 | Anesthesiology Consultation ---
Date of Service March 15, 2021 Assessment & Plan Chart Review Chart Review: Acceptable Risk for Surgery Consults Requested none History Surgery Operation Date: 03/16/21 10:30 Proposed Procedures p Right Ling vs. Intermediate Trochanteric Nail Frances - Julian Washington MD Height/Weight Height: 5 ft 3 in Weight: 71.7 kg Allergies Allergy/AdvReac Type Severity Reaction Status Date / Time acetaminophen [From Percocet] AdvReac Verified 11/07/20 08:57 oxycodone [From Percocet] AdvReac Verified 11/07/20 08:57 Penicillins AdvReac Verified 11/07/20 08:57 verapamil AdvReac Verified 11/07/20 08:57 Codeine Derivatives Allergy Mild Uncoded 08/02/20 09:49 Medications Home Medications Medication Instructions Recorded Confirmed Last Taken cholecalciferol (vitamin D3) 50 2,000 units PO DAILY cap 09/22/19 03/15/21 Unknown mcg (2,000 unit) capsule escitalopram oxalate 20 mg tablet 20 mg PO DAILY #30 tab 09/22/19 03/15/21 Unknown omeprazole 20 mg capsule,delayed 20 mg PO DAILY #30 cap 09/22/19 03/15/21 Unknown release albuterol sulfate 90 mcg/actuation 2 inh INHALATION Q4H PRN #8.5 g 08/13/20 03/15/21 Unknown aerosol inhaler Past Medical History Medical History Hx of basal cell carcinoma Hx of complications due to general anesthesia Hx of endometriosis Hx of hematuria Hx of migraine with aura Past Family History Family History Other Bladder cancer Breast cancer Gastrointestinal bleeding Hypertension Kidney stones Multiple sclerosis Past Surgical History Surgical History H/O colonoscopy History of tubal ligation Hx of cholecystectomy Hx of tonsillectomy Social History Smoking Status: Never smoker Hx Alcohol Use: No Hx Substance Use: No Physical Exam Vital Signs Last Vital Signs Temp 36.7 C 03/15/21 14:13 Pulse 95 H 03/15/21 17:00 Resp 18 03/15/21 17:00 BP 169/99 H 03/15/21 17:00 Pulse Ox 97 03/15/21 17:00 Testing Laboratory Results 03/15/21 15:00 03/15/21 15:00 PT 10.2 Seconds (9.0-12.0) 03/15/21 15:00 INR 1.0 (0.9-1.1) 03/15/21 15:00 APTT 22.3 Seconds (21.0-31.0) 03/15/21 15:00 Urine Color Yellow 03/15/21 13:40 Urine Appearance Clear (Clear) 03/15/21 13:40 Urine pH 5.5 (4.5-7.5) 03/15/21 13:40 Ur Specific Metter 1.024 (1.000-1.030) 03/15/21 13:40 Urine Protein Negative (Negative) 03/15/21 13:40 Urine Glucose (UA) Negative (Negative) 03/15/21 13:40 Urine Ketones 1+ (Negative) H 03/15/21 13:40 Urine Nitrite Negative (Negative) 03/15/21 13:40 Ur Leukocyte Esterase Negative (Negative) 03/15/21 13:40 Blood Type O Positive 03/15/21 15:08 Antibody Screen NEGATIVE 03/15/21 15:08
[2021-03-15] MEDS: HYDROmorphone INJ 0.5 MG/0.5 ML SYR IV PRN ×2 (18:29→22:37)
[2021-03-15] MEDS ORDERED: ONDANSETRON INJ 2 MG/ML 2 ML VIAL IV PRN (20:12)
[2021-03-15] MEDS ORDERED: ALBUTEROL HFA 8 GM INHALER INH PRN (20:12)
[2021-03-15] MEDS ORDERED: oxyCODONE HCL IR 5 MG TAB (IMMEDIATE RELEASE) PO PRN (20:12)
[2021-03-15] MEDS ORDERED: NALOXONE HCL 0.4 MG/1 ML VIAL/CARP IV PRN (20:12)
[2021-03-15] MEDS ORDERED: MAGNESIUM HYDROXIDE SUSP 30 ML UDC PO PRN (20:12)
[2021-03-15] MEDS ORDERED: bisacodyL 10 MG SUPP PR PRN (20:12)
[2021-03-15] MEDS: DOCUSATE SODIUM/SENNA 50/8.6MG TAB PO SCH (22:22)
[2021-03-16] MEDS: HYDROmorphone INJ 0.5 MG/0.5 ML SYR IV PRN ×6 (02:41→22:26)
[2021-03-16] MEDS: SODIUM CHLORIDE 0.9% 1000ML 1,000 ML IV SCH ×3 (05:07→23:10)
[2021-03-16] MEDS ORDERED: CLINDAMYCIN 600 MG/54 ML BAG IV SCH (06:00)
[2021-03-16 06:33] LABS: Basophils # (auto) 0.02 K/uL (0-0.2); Basophils % (auto) 0.2 %; Eosinophils # (auto) 0.01 K/uL (0-0.5); Eosinophils % (auto) 0.1 %; Hematocrit (blood only) 40.4 % (37-47); Hemoglobin 14.3 g/dL (12.0-16.0); Immature Granulocytes # (auto) 0.02 K/uL (0.00-0.02); Immature Granulocytes % (auto) 0.2 %; Lymphocytes # (auto) 2.09 K/uL (1.2-3.4); Lymphocytes % (auto) 19.8 %; Mean Corpuscular Hemoglobin 34.6 pg (25-34); Mean Corpuscular Hgb Conc 35.4 g/dL (32-36); Mean Corpuscular Volume 97.8 fL (80-100); Mean Platelet Volume 10.2 fL (7.4-10.4); Monocytes # (auto) 0.98 K/uL (0.11-0.59); Monocytes % (auto) 9.3 %; Neutrophils # (auto) 7.45 K/uL (1.4-6.5); Neutrophils % (auto) 70.4 %; Platelet Count 305 K/uL (130-400); RDW Coefficient of Variation 13.1 % (11.5-14.5); Red Blood Count 4.13 M/uL (4.2-5.4); White Blood Count 10.57 K/uL (4.8-10.8)
[2021-03-16 07:11] LABS: BUN Creatinine Ratio 24.7 (10-20); Calcium 9.2 mg/dl (8.5-10.1); Creatinine Clr Calc Pharmacy 58.7 ml/min; Est GFR (African American) 83.5; Est GFR (Non-African American) 72.1; Magnesium 2.2 mg/dl (1.8-2.4); Potassium 4.1 mmol/L (3.5-5.1)
[2021-03-16] MEDS: CHOLECALCIFEROL 1,000 UNITS 25 MCG TAB PO SCH (07:53)
[2021-03-16] MEDS: PANTOprazole 40 MG TAB PO SCH (07:53)
[2021-03-16] MEDS: ESCITALOPRAM OXALATE 20 MG TAB PO SCH (07:53)
[2021-03-16] MEDS: FLUTICASONE FUROATE 200MCG 14 PUFFS/INHALER INH SCH (07:54)
--- NOTE | 2021-03-16 08:48 | Hospitalist Progress Note ---
Date of Service March 16, 2021 Assessment & Plan (1) Hip fracture: * Mechanical Fall * Imaging:Acute comminuted displaced intertrochanteric fracture of the right femur with subtrochanteric extension. * Pre-op h/h * Pain control -- has been requiring Dilaudid today for adequate control, which she states has been effective * Ortho on consult * NPO * Plans for intervention this morning with Dr. Washington for RIGHT Ling vs Intermediate troch nail * Clinda pre-op abx * IVF-- NS @125cc/hr * PT/OT evals after surgery per orthopedics * SCDs, TEDs for now. Chemo following surgery (2) Asthma: * persistent well controlled * - Patient uses her albuterol 1-4 times per week and rarely wakes up at night to use her DUC * - Continue albuterol PRN * - Continue daily Fluticasone II puffs * 93% on RA (3) Arthritis: * Tylenol * - hold VIT D until post op (4) Depression with anxiety: * No acute needs * - Continue escitalopram 20 mg (5) Osteoporosis: * As above * Continued on supplementation when taking PO * VIt D level wnl (6) Vitamin D deficiency disease: * As above no acute needs. Continue when taking PO (7) GERD (gastroesophageal reflux disease): * Protonix 40mg daily while inpatient (8) DVT prophylaxis: * SCD's and TEDS tonight per ORTHO * - Chemoprohy following surgery Dispo: NPO for OR this morning with Dr. Washington Admission and Anticipated Discharge Date Admission Date: March 15, 2021 Supervising Physician Co-Signing Physician Notes PA Supervision Note: I did not personally see or examine the patient today, but I verified all yarbrough points of EVER Duncan's assessment and plan with the following exceptions/additions: None Subjective Patient seen this morning. Resting comfortably in bed. She states she has required Dilaudid for pain control and just recently got a dose but is hopeful for less needs once surgical intervention completed. Feels like she has to pass gas but is afraid of having a BM. Discussed we are here to help. She has had issues with anesthesia in the past with nausea and continued vomiting after, and discussed a scopalamine patch for perioperative period to see if this helps but will discontinue if tolerating diet to prevent extended exposure given age. No fever, chills, chest pain, shortness of breath, abdominal pain, nausea or vomiting at this time. Review of Systems Review of Systems: All systems reviewed & are unremarkable except as noted in HPI & below Physical Exam Physical Exam: PHYSICAL EXAM: General: awake, alert, no apparent distress, comfortably laying in bed and just got pain medication Head: Normocephalic, atraumatic ENT: PERRL, EOMI, no pharyngeal exudate, mucous membranes moist Neuro: AAO x 3, speech clear and appropriate, strength intact bilaterally 5/5, sensation intact and equal all extremities and dermatomes, no pronator drift Chest: equal rise and fall of the chest, no accessory muscle use, no heaves or thrills, Clear to auscultation, on room air, Cardiac: Regular rate and rhythm, S1S2, telemetry reviewed, skin warm dry, cap refill <3 seconds, peripheral pulses +2 no JVD, no murmur, no edema GI: NABS x 4 quadrants, soft, nontender to palpation, no rebound, guarding or tenderness : Knapp catheter to gravity draining concentrated yellow urine, no CVA tenderness, Extremities: right hip pain, no rotation, but shortening of the right leg. NV/CV intact to entire right leg, no peripheral edema or erythema, calfs nontender to palpation, pulses palpable bilaterally Psych: Normal mood and affect, AOx3 Skin: no rash or erythema Results & Data Results & Data ([facility]) Vital Signs (Past 12 Hours) Vital Signs Temp Pulse Resp BP Pulse Ox 03/16/21 07:29 36.7 C 69 16 134/75 93 03/15/21 22:36 36.4 C L 62 17 151/55 H 94 Laboratory Results 03/16/21 03/16/21 03/16/21 Range/Units 08:53 05:51 05:51 WBC 10.57 (4.8-10.8) K/uL RBC 4.13 L (4.2-5.4) M/uL Hgb 14.3 (12.0-16.0) g/dL Hct 40.4 (37-47) % MCV 97.8 (80-100) fL MCH 34.6 H (25-34) pg MCHC 35.4 (32-36) g/dL RDW Std Deviation 47.0 H (36.4-46.3) fL RDW Coeff of Rod 13.1 (11.5-14.5) % Plt Count 305 (130-400) K/uL MPV 10.2 (7.4-10.4) fL Immature Gran % (Auto) 0.2 % Neut % (Auto) 70.4 % Lymph % (Auto) 19.8 % Dunn % (Auto) 9.3 % Eos % (Auto) 0.1 % Baso % (Auto) 0.2 % Neut # (Auto) 7.45 H (1.4-6.5) K/uL Lymph # (Auto) 2.09 (1.2-3.4) K/uL [place] # (Auto) 0.98 H (0.11-0.59) K/uL Eos # (Auto) 0.01 (0-0.5) K/uL Baso # (Auto) 0.02 (0-0.2) K/uL Immature Gran # (Auto) 0.02 (0.00-0.02) K/uL PT (9.0-12.0) Seconds INR (0.9-1.1) APTT (21.0-31.0) Seconds PTT Ratio Sodium 136 (136-145) mmol/L Potassium 4.1 (3.5-5.1) mmol/L Chloride 106 (98-107) mmol/L Carbon Dioxide 25 (21-32) mmol/L Anion Gap 5.0 (3-11) BUN 20 H (7-18) mg/dl Creatinine 0.81 (0.6-1.2) mg/dl Est Cr Clr Drug Dosing 58.7 ml/min Est GFR ( Amer) 83.5 Est GFR (Non-Af Amer) 72.1 BUN/Creatinine Ratio 24.7 H (10-20) Glucose 106 H (70-99) mg/dl Calcium 9.2 (8.5-10.1) mg/dl Magnesium 2.2 (1.8-2.4) mg/dl Total Bilirubin (0.2-1) mg/dl AST (15-37) U/L ALT (12-78) U/L Alkaline Phosphatase (45-117) U/L Total Protein (6.4-8.2) gm/dl Albumin (3.4-5.0) gm/dl Globulin (2.5-4.0) gm/dl Albumin/Globulin Ratio (0.9-2) 25-OH Vitamin D Total 62.4 (30-100) ng/ml Urine Color Urine Appearance (Clear) Urine pH (4.5-7.5) Ur Specific [place] (1.000-1.030) Urine Protein (Negative) Urine Glucose (UA) (Negative) Urine Ketones (Negative) Urine Blood (Negative) Urine Nitrite (Negative) Urine Bilirubin (Negative) Urine Urobilinogen (Negative) Ur Leukocyte Esterase (Negative) COVID-19 Eval Order SARS-CoV-2 (PCR) (Negative) Influenza Type A (PCR) (Neg) Influenza Type B (PCR) (Neg) RSV (RT-PCR) (Neg) Blood Type Antibody Screen 03/15/21 03/15/21 03/15/21 Range/Units 16:45 16:45 15:08 WBC (4.8-10.8) K/uL RBC (4.2-5.4) M/uL Hgb (12.0-16.0) g/dL Hct (37-47) % MCV (80-100) fL MCH (25-34) pg MCHC (32-36) g/dL RDW Std Deviation (36.4-46.3) fL RDW Coeff of Rod (11.5-14.5) % Plt Count (130-400) K/uL MPV (7.4-10.4) fL Immature Gran % (Auto) % Neut % (Auto) % Lymph % (Auto) % [place] % (Auto) % Eos % (Auto) % Baso % (Auto) % Neut # (Auto) (1.4-6.5) K/uL Lymph # (Auto) (1.2-3.4) K/uL [place] # (Auto) (0.11-0.59) K/uL Eos # (Auto) (0-0.5) K/uL Baso # (Auto) (0-0.2) K/uL Immature Gran # (Auto) (0.00-0.02) K/uL PT (9.0-12.0) Seconds INR (0.9-1.1) APTT (21.0-31.0) Seconds PTT Ratio Sodium (136-145) mmol/L Potassium (3.5-5.1) mmol/L Chloride (98-107) mmol/L Carbon Dioxide (21-32) mmol/L Anion Gap (3-11) BUN (7-18) mg/dl Creatinine (0.6-1.2) mg/dl Est Cr Clr Drug Dosing ml/min Est GFR ( Amer) Est GFR (Non-Af Amer) BUN/Creatinine Ratio (10-20) Glucose (70-99) mg/dl Calcium (8.5-10.1) mg/dl Magnesium (1.8-2.4) mg/dl Total Bilirubin (0.2-1) mg/dl AST (15-37) U/L ALT (12-78) U/L Alkaline Phosphatase (45-117) U/L Total Protein (6.4-8.2) gm/dl Albumin (3.4-5.0) gm/dl Globulin (2.5-4.0) gm/dl Albumin/Globulin Ratio (0.9-2) 25-OH Vitamin D Total (30-100) ng/ml Urine Color Urine Appearance (Clear) Urine pH (4.5-7.5) Ur Specific [place] (1.000-1.030) Urine Protein (Negative) Urine Glucose (UA) (Negative) Urine Ketones (Negative) Urine Blood (Negative) Urine Nitrite (Negative) Urine Bilirubin (Negative) Urine Urobilinogen (Negative) Ur Leukocyte Esterase (Negative) COVID-19 Eval Order CovFluRsv at [facility] SARS-CoV-2 (PCR) NEGATIVE (Negative) Influenza Type A (PCR) Negative (Neg) Influenza Type B (PCR) Negative (Neg) RSV (RT-PCR) Negative (Neg) Blood Type O Positive Antibody Screen NEGATIVE 03/15/21 03/15/21 03/15/21 Range/Units 15:00 15:00 15:00 WBC 14.18 H (4.8-10.8) K/uL RBC 4.21 (4.2-5.4) M/uL Hgb 14.4 (12.0-16.0) g/dL Hct 41.2 (37-47) % MCV 97.9 (80-100) fL MCH 34.2 H (25-34) pg MCHC 35.0 (32-36) g/dL RDW Std Deviation 45.9 (36.4-46.3) fL RDW Coeff of Rod 12.9 (11.5-14.5) % Plt Count 301 (130-400) K/uL MPV 9.8 (7.4-10.4) fL Immature Gran % (Auto) 0.4 % Neut % (Auto) 77.6 % Lymph % (Auto) 15.9 % Dunn % (Auto) 5.2 % Eos % (Auto) 0.8 % Baso % (Auto) 0.1 % Neut # (Auto) 10.99 H (1.4-6.5) K/uL Lymph # (Auto) 2.26 (1.2-3.4) K/uL [place] # (Auto) 0.74 H (0.11-0.59) K/uL Eos # (Auto) 0.12 (0-0.5) K/uL Baso # (Auto) 0.02 (0-0.2) K/uL Immature Gran # (Auto) 0.05 H (0.00-0.02) K/uL PT 10.2 (9.0-12.0) Seconds INR 1.0 (0.9-1.1) APTT 22.3 (21.0-31.0) Seconds PTT Ratio 0.8 Sodium 138 (136-145) mmol/L Potassium 3.7 (3.5-5.1) mmol/L Chloride 108 H (98-107) mmol/L Carbon Dioxide 25 (21-32) mmol/L Anion Gap 5.0 (3-11) BUN 17 (7-18) mg/dl Creatinine 0.83 (0.6-1.2) mg/dl Est Cr Clr Drug Dosing 57.3 ml/min Est GFR ( Amer) 81.1 Est GFR (Non-Af Amer) 70.0 BUN/Creatinine Ratio 20.8 H (10-20) Glucose 129 H (70-99) mg/dl Calcium 8.9 (8.5-10.1) mg/dl Magnesium (1.8-2.4) mg/dl Total Bilirubin 0.5 (0.2-1) mg/dl AST 31 (15-37) U/L ALT 41 (12-78) U/L Alkaline Phosphatase 86 (45-117) U/L Total Protein 7.4 (6.4-8.2) gm/dl Albumin 3.6 (3.4-5.0) gm/dl Globulin 3.8 (2.5-4.0) gm/dl Albumin/Globulin Ratio 0.9 (0.9-2) 25-OH Vitamin D Total (30-100) ng/ml Urine Color Urine Appearance (Clear) Urine pH (4.5-7.5) Ur Specific [place] (1.000-1.030) Urine Protein (Negative) Urine Glucose (UA) (Negative) Urine Ketones (Negative) Urine Blood (Negative) Urine Nitrite (Negative) Urine Bilirubin (Negative) Urine Urobilinogen (Negative) Ur Leukocyte Esterase (Negative) COVID-19 Eval Order SARS-CoV-2 (PCR) (Negative) Influenza Type A (PCR) (Neg) Influenza Type B (PCR) (Neg) RSV (RT-PCR) (Neg) Blood Type Antibody Screen 03/15/21 Range/Units 13:40 WBC (4.8-10.8) K/uL RBC (4.2-5.4) M/uL Hgb (12.0-16.0) g/dL Hct (37-47) % MCV (80-100) fL MCH (25-34) pg MCHC (32-36) g/dL RDW Std Deviation (36.4-46.3) fL RDW Coeff of Rod (11.5-14.5) % Plt Count (130-400) K/uL MPV (7.4-10.4) fL Immature Gran % (Auto) % Neut % (Auto) % Lymph % (Auto) % [place] % (Auto) % Eos % (Auto) % Baso % (Auto) % Neut # (Auto) (1.4-6.5) K/uL Lymph # (Auto) (1.2-3.4) K/uL [place] # (Auto) (0.11-0.59) K/uL Eos # (Auto) (0-0.5) K/uL Baso # (Auto) (0-0.2) K/uL Immature Gran # (Auto) (0.00-0.02) K/uL PT (9.0-12.0) Seconds INR (0.9-1.1) APTT (21.0-31.0) Seconds PTT Ratio Sodium (136-145) mmol/L Potassium (3.5-5.1) mmol/L Chloride (98-107) mmol/L Carbon Dioxide (21-32) mmol/L Anion Gap (3-11) BUN (7-18) mg/dl Creatinine (0.6-1.2) mg/dl Est Cr Clr Drug Dosing ml/min Est GFR ( Amer) Est GFR (Non-Af Amer) BUN/Creatinine Ratio (10-20) Glucose (70-99) mg/dl Calcium (8.5-10.1) mg/dl Magnesium (1.8-2.4) mg/dl Total Bilirubin (0.2-1) mg/dl AST (15-37) U/L ALT (12-78) U/L Alkaline Phosphatase (45-117) U/L Total Protein (6.4-8.2) gm/dl Albumin (3.4-5.0) gm/dl Globulin (2.5-4.0) gm/dl Albumin/Globulin Ratio (0.9-2) 25-OH Vitamin D Total (30-100) ng/ml Urine Color Yellow Urine Appearance Clear (Clear) Urine pH 5.5 (4.5-7.5) Ur Specific [place] 1.024 (1.000-1.030) Urine Protein Negative (Negative) Urine Glucose (UA) Negative (Negative) Urine Ketones 1+ H (Negative) Urine Blood Negative (Negative) Urine Nitrite Negative (Negative) Urine Bilirubin Negative (Negative) Urine Urobilinogen Negative (Negative) Ur Leukocyte Esterase Negative (Negative) COVID-19 Eval Order SARS-CoV-2 (PCR) (Negative) Influenza Type A (PCR) (Neg) Influenza Type B (PCR) (Neg) RSV (RT-PCR) (Neg) Blood Type Antibody Screen Diagnostic Findings Chest X-Ray 03/15/21 14:45 SINGLE VIEW CHEST CLINICAL HISTORY: Fall. Hip fracture. FINDINGS: An AP, portable, upright chest radiograph is compared to study dated 10/26/2019. The cardiomediastinal silhouette is unremarkable. Chronic interstitial thickening is similar to previous. There is mild bibasilar atelectasis. No airspace consolidation or large pleural effusion is identified. No pneumothorax is seen. The skeletal structures are osteopenic. There are healed left-sided rib fractures. IMPRESSION: No active disease in the chest. ACT 112: Negative or not required by law. Electronically signed by: Javi Senior M.D. 03/15/2021 3:33 PM Hip/Pelvis X-Ray 03/15/21 14:45 XR hip RT 2V w pelvis CLINICAL HISTORY: fall, pain COMPARISON: CT of the abdomen and pelvis June 12, 2015. FINDINGS: Note is made of an acute comminuted displaced intertrochanteric fracture of the right femur with subtrochanteric extension. No acute fracture within the pelvis is identified. No proximal left femoral fracture is noted. IMPRESSION: Acute comminuted displaced intertrochanteric fracture of the right femur with subtrochanteric extension. ACT 112: Negative or not required by law. Electronically signed by: Juan Weber M.D. 03/15/2021 4:23 PM PG Care Time/CCT Total # of Minutes Spent Total Time Spent with Patient: Total time spent is greater than 50% in coordination of care (as documented) at patient's floor/unit and/or counseling p atient: Coding Level of Care Code 34907 Subseq Hosp Care Lvl 2 Diagnoses Hip fracture S72.001A Encounter type: initial encounter Fracture type: closed Laterality: right Asthma J45.909 Asthma complication type: uncomplicated Asthma persistence: unspecified Asthma severity: mild Arthritis M19.90 Depression with anxiety F41.8 Osteoporosis M81.0 Osteoporosis type: unspecified Presence of current pathological fracture: unspecified Vitamin D deficiency disease E55.9 GERD (gastroesophageal reflux disease) K21.9 DVT prophylaxis Z29.9 (1) Hip fracture Encounter type: initial encounter Fracture type: closed Laterality: right Qualified Code(s): S72.001A - Fracture of unspecified part of neck of right femur, initial encounter for closed fracture (2) Osteoporosis Osteoporosis type: unspecified Presence of current pathological fracture: unspecified Qualified Code(s): M81.0 - Age-related osteoporosis without current pathological fracture (3) Asthma Asthma complication type: uncomplicated Asthma persistence: unspecified Asthma severity: mild Qualified Code(s): J45.909 - Unspecified asthma, uncomplicated
--- NOTE | 2021-03-16 09:31 | Orthopedic Progress Note ---
Date of Service March 16, 2021 Assessment & Plan (1) Hip fracture: The patient is a 75 year old female who sustained a right hip fracture from a ground level fall. Plan OR later today for ORIF Right hip fracture. The informed consent was signed yesterday. RLE initialled. Placed on the add-on schedule for today. Will proceed with surgery tomorrow, Thursday, if medically stable. Patient has been NPO since midnight. The patient is be NWB RLE. TEDs and foot pumps to LLE. Antibiotics car salesperson to OR. The patient understands all of these instructions and explanations, all of their questions have been satisfactorily addressed. Admission and Anticipated Discharge Date Admission Date: March 15, 2021 Subjective Right hip pain Review of Systems Review of Systems: All systems reviewed & are unremarkable except as noted in HPI & below Physical Exam Physical Exam: RLE: Sensation to light touch intact. Wiggling toes and ankles. Calf is soft and nontender. Leg is shortened, slightly externally rotated. Results & Data ([facility]) Vital Signs (Past 12 Hours) Vital Signs Temp Pulse Resp BP Pulse Ox 03/16/21 07:29 36.7 C 69 16 134/75 93 03/15/21 22:36 36.4 C L 62 17 151/55 H 94 Laboratory Results 03/16/21 03/16/21 03/16/21 Range/Units 08:53 05:51 05:51 WBC 10.57 (4.8-10.8) K/uL RBC 4.13 L (4.2-5.4) M/uL Hgb 14.3 (12.0-16.0) g/dL Hct 40.4 (37-47) % MCV 97.8 (80-100) fL MCH 34.6 H (25-34) pg MCHC 35.4 (32-36) g/dL RDW Std Deviation 47.0 H (36.4-46.3) fL RDW Coeff of Rod 13.1 (11.5-14.5) % Plt Count 305 (130-400) K/uL MPV 10.2 (7.4-10.4) fL Immature Gran % (Auto) 0.2 % Neut % (Auto) 70.4 % Lymph % (Auto) 19.8 % [place] % (Auto) 9.3 % Eos % (Auto) 0.1 % Baso % (Auto) 0.2 % Neut # (Auto) 7.45 H (1.4-6.5) K/uL Lymph # (Auto) 2.09 (1.2-3.4) K/uL [place] # (Auto) 0.98 H (0.11-0.59) K/uL Eos # (Auto) 0.01 (0-0.5) K/uL Baso # (Auto) 0.02 (0-0.2) K/uL Immature Gran # (Auto) 0.02 (0.00-0.02) K/uL PT (9.0-12.0) Seconds INR (0.9-1.1) APTT (21.0-31.0) Seconds PTT Ratio Sodium 136 (136-145) mmol/L Potassium 4.1 (3.5-5.1) mmol/L Chloride 106 (98-107) mmol/L Carbon Dioxide 25 (21-32) mmol/L Anion Gap 5.0 (3-11) BUN 20 H (7-18) mg/dl Creatinine 0.81 (0.6-1.2) mg/dl Est Cr Clr Drug Dosing 58.7 ml/min Est GFR ( Amer) 83.5 Est GFR (Non-Af Amer) 72.1 BUN/Creatinine Ratio 24.7 H (10-20) Glucose 106 H (70-99) mg/dl Calcium 9.2 (8.5-10.1) mg/dl Magnesium 2.2 (1.8-2.4) mg/dl Total Bilirubin (0.2-1) mg/dl AST (15-37) U/L ALT (12-78) U/L Alkaline Phosphatase (45-117) U/L Total Protein (6.4-8.2) gm/dl Albumin (3.4-5.0) gm/dl Globulin (2.5-4.0) gm/dl Albumin/Globulin Ratio (0.9-2) 25-OH Vitamin D Total 62.4 (30-100) ng/ml Urine Color Urine Appearance (Clear) Urine pH (4.5-7.5) Ur Specific [place] (1.000-1.030) Urine Protein (Negative) Urine Glucose (UA) (Negative) Urine Ketones (Negative) Urine Blood (Negative) Urine Nitrite (Negative) Urine Bilirubin (Negative) Urine Urobilinogen (Negative) Ur Leukocyte Esterase (Negative) COVID-19 Eval Order SARS-CoV-2 (PCR) (Negative) Influenza Type A (PCR) (Neg) Influenza Type B (PCR) (Neg) RSV (RT-PCR) (Neg) Blood Type Antibody Screen 03/15/21 03/15/21 03/15/21 Range/Units 16:45 16:45 15:08 WBC (4.8-10.8) K/uL RBC (4.2-5.4) M/uL Hgb (12.0-16.0) g/dL Hct (37-47) % MCV (80-100) fL MCH (25-34) pg MCHC (32-36) g/dL RDW Std Deviation (36.4-46.3) fL RDW Coeff of Rod (11.5-14.5) % Plt Count (130-400) K/uL MPV (7.4-10.4) fL Immature Gran % (Auto) % Neut % (Auto) % Lymph % (Auto) % [place] % (Auto) % Eos % (Auto) % Baso % (Auto) % Neut # (Auto) (1.4-6.5) K/uL Lymph # (Auto) (1.2-3.4) K/uL [place] # (Auto) (0.11-0.59) K/uL Eos # (Auto) (0-0.5) K/uL Baso # (Auto) (0-0.2) K/uL Immature Gran # (Auto) (0.00-0.02) K/uL PT (9.0-12.0) Seconds INR (0.9-1.1) APTT (21.0-31.0) Seconds PTT Ratio Sodium (136-145) mmol/L Potassium (3.5-5.1) mmol/L Chloride (98-107) mmol/L Carbon Dioxide (21-32) mmol/L Anion Gap (3-11) BUN (7-18) mg/dl Creatinine (0.6-1.2) mg/dl Est Cr Clr Drug Dosing ml/min Est GFR ( Amer) Est GFR (Non-Af Amer) BUN/Creatinine Ratio (10-20) Glucose (70-99) mg/dl Calcium (8.5-10.1) mg/dl Magnesium (1.8-2.4) mg/dl Total Bilirubin (0.2-1) mg/dl AST (15-37) U/L ALT (12-78) U/L Alkaline Phosphatase (45-117) U/L Total Protein (6.4-8.2) gm/dl Albumin (3.4-5.0) gm/dl Globulin (2.5-4.0) gm/dl Albumin/Globulin Ratio (0.9-2) 25-OH Vitamin D Total (30-100) ng/ml Urine Color Urine Appearance (Clear) Urine pH (4.5-7.5) Ur Specific [place] (1.000-1.030) Urine Protein (Negative) Urine Glucose (UA) (Negative) Urine Ketones (Negative) Urine Blood (Negative) Urine Nitrite (Negative) Urine Bilirubin (Negative) Urine Urobilinogen (Negative) Ur Leukocyte Esterase (Negative) COVID-19 Eval Order CovFluRsv at [facility] SARS-CoV-2 (PCR) NEGATIVE (Negative) Influenza Type A (PCR) Negative (Neg) Influenza Type B (PCR) Negative (Neg) RSV (RT-PCR) Negative (Neg) Blood Type O Positive Antibody Screen NEGATIVE 03/15/21 03/15/21 03/15/21 Range/Units 15:00 15:00 15:00 WBC 14.18 H (4.8-10.8) K/uL RBC 4.21 (4.2-5.4) M/uL Hgb 14.4 (12.0-16.0) g/dL Hct 41.2 (37-47) % MCV 97.9 (80-100) fL MCH 34.2 H (25-34) pg MCHC 35.0 (32-36) g/dL RDW Std Deviation 45.9 (36.4-46.3) fL RDW Coeff of Rod 12.9 (11.5-14.5) % Plt Count 301 (130-400) K/uL MPV 9.8 (7.4-10.4) fL Immature Gran % (Auto) 0.4 % Neut % (Auto) 77.6 % Lymph % (Auto) 15.9 % [place] % (Auto) 5.2 % Eos % (Auto) 0.8 % Baso % (Auto) 0.1 % Neut # (Auto) 10.99 H (1.4-6.5) K/uL Lymph # (Auto) 2.26 (1.2-3.4) K/uL [place] # (Auto) 0.74 H (0.11-0.59) K/uL Eos # (Auto) 0.12 (0-0.5) K/uL Baso # (Auto) 0.02 (0-0.2) K/uL Immature Gran # (Auto) 0.05 H (0.00-0.02) K/uL PT 10.2 (9.0-12.0) Seconds INR 1.0 (0.9-1.1) APTT 22.3 (21.0-31.0) Seconds PTT Ratio 0.8 Sodium 138 (136-145) mmol/L Potassium 3.7 (3.5-5.1) mmol/L Chloride 108 H (98-107) mmol/L Carbon Dioxide 25 (21-32) mmol/L Anion Gap 5.0 (3-11) BUN 17 (7-18) mg/dl Creatinine 0.83 (0.6-1.2) mg/dl Est Cr Clr Drug Dosing 57.3 ml/min Est GFR ( Amer) 81.1 Est GFR (Non-Af Amer) 70.0 BUN/Creatinine Ratio 20.8 H (10-20) Glucose 129 H (70-99) mg/dl Calcium 8.9 (8.5-10.1) mg/dl Magnesium (1.8-2.4) mg/dl Total Bilirubin 0.5 (0.2-1) mg/dl AST 31 (15-37) U/L ALT 41 (12-78) U/L Alkaline Phosphatase 86 (45-117) U/L Total Protein 7.4 (6.4-8.2) gm/dl Albumin 3.6 (3.4-5.0) gm/dl Globulin 3.8 (2.5-4.0) gm/dl Albumin/Globulin Ratio 0.9 (0.9-2) 25-OH Vitamin D Total (30-100) ng/ml Urine Color Urine Appearance (Clear) Urine pH (4.5-7.5) Ur Specific [place] (1.000-1.030) Urine Protein (Negative) Urine Glucose (UA) (Negative) Urine Ketones (Negative) Urine Blood (Negative) Urine Nitrite (Negative) Urine Bilirubin (Negative) Urine Urobilinogen (Negative) Ur Leukocyte Esterase (Negative) COVID-19 Eval Order SARS-CoV-2 (PCR) (Negative) Influenza Type A (PCR) (Neg) Influenza Type B (PCR) (Neg) RSV (RT-PCR) (Neg) Blood Type Antibody Screen 03/15/21 Range/Units 13:40 WBC (4.8-10.8) K/uL RBC (4.2-5.4) M/uL Hgb (12.0-16.0) g/dL Hct (37-47) % MCV (80-100) fL MCH (25-34) pg MCHC (32-36) g/dL RDW Std Deviation (36.4-46.3) fL RDW Coeff of Rod (11.5-14.5) % Plt Count (130-400) K/uL MPV (7.4-10.4) fL Immature Gran % (Auto) % Neut % (Auto) % Lymph % (Auto) % [place] % (Auto) % Eos % (Auto) % Baso % (Auto) % Neut # (Auto) (1.4-6.5) K/uL Lymph # (Auto) (1.2-3.4) K/uL [place] # (Auto) (0.11-0.59) K/uL Eos # (Auto) (0-0.5) K/uL Baso # (Auto) (0-0.2) K/uL Immature Gran # (Auto) (0.00-0.02) K/uL PT (9.0-12.0) Seconds INR (0.9-1.1) APTT (21.0-31.0) Seconds PTT Ratio Sodium (136-145) mmol/L Potassium (3.5-5.1) mmol/L Chloride (98-107) mmol/L Carbon Dioxide (21-32) mmol/L Anion Gap (3-11) BUN (7-18) mg/dl Creatinine (0.6-1.2) mg/dl Est Cr Clr Drug Dosing ml/min Est GFR ( Amer) Est GFR (Non-Af Amer) BUN/Creatinine Ratio (10-20) Glucose (70-99) mg/dl Calcium (8.5-10.1) mg/dl Magnesium (1.8-2.4) mg/dl Total Bilirubin (0.2-1) mg/dl AST (15-37) U/L ALT (12-78) U/L Alkaline Phosphatase (45-117) U/L Total Protein (6.4-8.2) gm/dl Albumin (3.4-5.0) gm/dl Globulin (2.5-4.0) gm/dl Albumin/Globulin Ratio (0.9-2) 25-OH Vitamin D Total (30-100) ng/ml Urine Color Yellow Urine Appearance Clear (Clear) Urine pH 5.5 (4.5-7.5) Ur Specific [place] 1.024 (1.000-1.030) Urine Protein Negative (Negative) Urine Glucose (UA) Negative (Negative) Urine Ketones 1+ H (Negative) Urine Blood Negative (Negative) Urine Nitrite Negative (Negative) Urine Bilirubin Negative (Negative) Urine Urobilinogen Negative (Negative) Ur Leukocyte Esterase Negative (Negative) COVID-19 Eval Order SARS-CoV-2 (PCR) (Negative) Influenza Type A (PCR) (Neg) Influenza Type B (PCR) (Neg) RSV (RT-PCR) (Neg) Blood Type Antibody Screen (1) Hip fracture Encounter type: initial encounter Fracture type: closed Laterality: right Qualified Code(s): S72.001A - Fracture of unspecified part of neck of right femur, initial encounter for closed fracture
[2021-03-16] MEDS ORDERED: BUPIVACAINE 0.5 % 5 MG/1 ML PF 10ML VIAL ONE (10:10)
[2021-03-16] MEDS ORDERED: LIDOCAINE HCL 2% 2 ML VIAL/AMP(20MG/ML) INFIL ONE (10:38)
[2021-03-16] MEDS ORDERED: MIDAZOLAM HCL 1 MG/ML 2ML VIAL ONE ×2 (10:38)
[2021-03-16] MEDS ORDERED: PROPOFOL IV EMULSION 10 MG/ML 20 ML VIAL IV ONE (10:38)
[2021-03-16] MEDS ORDERED: SCOPOLAMINE 1 MG TDSY TD ONE (10:40)
[2021-03-16] MEDS ORDERED: ATROPINE SULFATE 0.1 MG/ML 10ML SYR IV PRN (11:01)
[2021-03-16] MEDS ORDERED: ONDANSETRON INJ 2 MG/ML 2 ML VIAL IV PRN (11:01)
[2021-03-16] MEDS ORDERED: fentaNYL citrate 100 MCG/2 ML VIAL IV PRN (11:01)
[2021-03-16] MEDS ORDERED: ePHEDrine sulfate 50 MG/ML AMP IV PRN (11:01)
[2021-03-16] MEDS ORDERED: LIDOCAINE/EPINEPHRINE 1% 20 ML VIAL ONE (11:14)
[2021-03-16] MEDS ORDERED: BUPIVACAINE 0.5 % 5 MG/1 ML MPF 30ML VIAL ONE (11:14)
[2021-03-16] MEDS ORDERED: ONDANSETRON INJ 2 MG/ML 2 ML VIAL ONE ×2 (11:40→14:41)
[2021-03-16] MEDS ORDERED: CLINDAMYCIN PHOS 300 MG/2 ML VIAL ONE (11:43)
--- NOTE | 2021-03-16 14:01 | Fluoroscopy Report ---
INTRAOPERATIVE RADIOGRAPHS CLINICAL HISTORY: Open reduction and internal fixation of the right hip. Fluoroscopy time: 171 seconds. FINDINGS: 4 spot fluoroscopic views of the right femur are correlated with radiographs dated 1. There has been intertrochanteric and intramedullary nail fixation of an intertrochanteric/subtroch anteric fracture of the right femur with mandaeism of near-anatomic alignment. 2 cortical lag screw s transfix the distal end of the intramedullary nail. Surgical drains are present in the distal thigh . Overlying soft tissue edema is noted. IMPRESSION: Intraoperative images from open reduction and internal fixation of a right proximal femor al fracture as above. Electronically signed by: Javi Senior M.D. 03/16/2021 2:00 PM
--- NOTE | 2021-03-16 14:15 | Post Operative Brief Note ---
Immediate Post Op Note v1 Date of Surgery March 16, 2021 Pre & Post Diagnosis Operation Date: 03/16/21 10:30 Pre-Op Diagnosis: Right introtrochanteric fracture Post-Op Diagnosis: Right introtrochanteric fracture I identified the patient and participated in the time-out.: Yes Procedure Operation Date: 03/16/21 10:30 Actual Procedures p Right Intermediate Trochanteric Nail Synthes(Right) - Julian Washington MD Surgeon Julian Washington MD Crepe Maker Bev Ndiaye MD Estimated Blood Loss 100 Findings Consistent with Post-Op Diagnosis Fluids 1200 cc Drains Knapp Catheter Anesthesia Type Spinal Complications none
--- NOTE | 2021-03-16 14:19 | Operative Report ---
Post Operative Report Pre & Post Diagnosis Operation Date: 03/16/21 10:30 Pre-Op Diagnosis: Right introtrochanteric fracture Post-Op Diagnosis: Right introtrochanteric fracture I identified the patient and participated in the time-out.: Yes Procedure Operation Date: 03/16/21 10:30 Actual Procedures p Right Intermediate Trochanteric Nail Synthes(Right) - Julian Washington MD Surgeon Julian Washington MD Digital Art Director Bev Ndiaye MD Estimated Blood Loss 100 Findings See Below Displaced right hip intertrochanteric with subtrochanteric extension type fracture Fluids 1200 cc Specimens n/a Anesthesia Type Spinal Complications none Indications The patient is a 75 year old female who sustained a right hip fracture from a ground level fall. The patients treatment options of conservative versus surgical intervention were discussed. Since the patient was an ambulatory prior to the injury and to avoid the risks of bed sores, pulmonary complications, and to give the best chance for ambulation, I recommended surgery. The patient and family understands the risks of surgery, which include but are not limited to: bleeding, infection, re-operation, damage to nerves and arteries, continued pain, failure of the hardware, mal-union, non-union, DVT, and . In addition the patient is aware of the 20-30% morbidity associated with hip fracture for up to 1 year following a hip fracture. The patient and family unde rstands all of these instructions and explanations, all of their questions have been satisfactorily addressed. The patient has elected to proceed with surgery and the informed consent was signed. Description of Procedure IMPLANTS: 1) 11 x 360 MM LONG TROCH NAIL (SYNTHES). 2) 11 X 85 MM HELICAL SCREW. 3) 5 X 36 MM x 2 DISTAL LOCKING SCREW. PROCEDURE: The patient was taken to the Operating Room and placed in the supine position on the fracture table after spinal anesthesia was administered. A multidisciplinary time-out was performed identifying my initials on the right lower limb as the correct and operative limb. Prior to the incision being made, 600 Milligrams of intravenous Clindamycin were given. Fluoroscopy was brought in to ensure adequate x-rays images could be obtained. A reduction was performed with traction, adduction, and internal rotation of the operative limb. Once this was confirmed with Fluro, the right lower extremity was prepped in the standard fashion. The trochanter was marked as was the planned incision and trajectory of the helical screw. The incisions were injected with a 50:50 mixture of 1% Lidocaine plain and 0.5% Bupivacaine with epinephrine for a total of 10cc. The planned incision proximal to the greater trochanter was made and carried down through the Tensor Fascia Valerie to expose the tip of the greater trochanter and the starting position. A starting guide wire was placed and the starting Awl was used to create the entry hole for the long implant. A long guide wire was placed centered distally in the AP and lateral projections near the physeal scar and the shaft was sequentially reamed to to 12.5mm. A size 11 x 360 mm was selected. The implant was then inserted without difficulty. A second incisions was made for placement of the helical blade and placed through the aiming guide in the standard fashion. The Helical blade was locked in place. The traction was released. The distal locking and dynamic screws were placed using perfect venetie ira technique. Final x-rays were obtained showing TAD of less than 25mm. The wounds were copiously irrigated. The Tensor Fascia Valerie and IT band were closed with 0 Vicryl. The subcutaneous tissue was closed with 3-0 Vicryl. The skin was closed with ZipLine and shield. The incisions were covered with 4x4s, ABD, and foam tape. The patient was transfer to her hospital bed and taken to the PACU in stable condition. The sponge and needle counts were correct. POST-OP INSTRUCTIONS: The patient was admitted to back to hospitalist service on the Med/Surg floor. The patient will be WBAT with a walker. The patient will be seen by PT/OT. Her labs will be checked in the am. DVT prophylaxis will be with TEDs, mechanical devices until 24hrs as the patient had a spinal and then Lovenox will be started. I attest to the content of the Intraoperative Record and any orders documented therein. Any exceptions are noted below.
[2021-03-16] MEDS ORDERED: NALOXONE HCL 0.4 MG/1 ML VIAL/CARP IV PRN (14:51)
--- NOTE | 2021-03-16 16:05 | Anesthesiology Progress Note ---
Date of Service March 16, 2021 Anesthesia Post Procedure Vital Signs Vital Signs: Temp Pulse Pulse Resp BP BP Pulse Ox 03/16/21 15:53 36.6 C 62 16 122/69 99 03/16/21 15:15 36.4 C L 62 14 147/80 H 98 03/16/21 15:00 36.7 C 67 22 143/79 H 99 03/16/21 14:50 61 24 142/76 H 98 03/16/21 14:40 60 28 H 129/62 96 03/16/21 14:30 57 L 26 H 148/70 H 100 03/16/21 14:22 36.2 C L 58 L 16 117/69 99 03/16/21 07:29 36.7 C 69 16 134/75 93 03/15/21 22:36 36.4 C L 62 17 151/55 H 94 03/15/21 19:38 36.6 C 61 18 142/61 H 96 03/15/21 17:00 95 H 18 169/99 H 97 Pain Intensity Right Hip: Pain Intensity: 8 Transfer of Care Handoff Completed per policy Notes Mental Status: alert / awake / arousable Patient Amnestic to Procedure: Yes Nausea / Vomiting: adequately controlled Pain: adequately controlled Airway Patency, RR, SpO2: stable & adequate BP & HR: stable & adequate Hydration State: stable & adequate Neuraxial Anesthesia: was administered and sensory block is resolving Anesthetic Complications: no major complications apparent
[2021-03-16] MEDS: CHECK SCOPOLAMINE PATCH PLACEMENT SCH (16:12)
[2021-03-16] MEDS: DOCUSATE SODIUM/SENNA 50/8.6MG TAB PO SCH (20:13)
[2021-03-17] MEDS: CHECK SCOPOLAMINE PATCH PLACEMENT SCH ×2 (01:22→07:18)
[2021-03-17] MEDS: HYDROmorphone INJ 0.5 MG/0.5 ML SYR IV PRN ×5 (02:08→18:00)
[2021-03-17 06:47] LABS: Eosinophils # (auto) 0.01 K/uL (0-0.5); Eosinophils % (auto) 0.1 %; Hematocrit (blood only) 27.5 % (37-47); Hemoglobin 9.4 g/dL (12.0-16.0); Immature Granulocytes # (auto) 0.02 K/uL (0.00-0.02); Immature Granulocytes % (auto) 0.2 %; Lymphocytes # (auto) 1.68 K/uL (1.2-3.4); Mean Corpuscular Hemoglobin 33.8 pg (25-34); Mean Corpuscular Hgb Conc 34.2 g/dL (32-36); Mean Corpuscular Volume 98.9 fL (80-100); Mean Platelet Volume 9.8 fL (7.4-10.4); Monocytes # (auto) 0.87 K/uL (0.11-0.59); Monocytes % (auto) 9.8 %; Neutrophils # (auto) 6.27 K/uL (1.4-6.5); Neutrophils % (auto) 70.9 %; Platelet Count 203 K/uL (130-400); RDW Coefficient of Variation 13.2 % (11.5-14.5); RDW Standard Deviation 47.8 fL (36.4-46.3); Red Blood Count 2.78 M/uL (4.2-5.4); White Blood Count 8.85 K/uL (4.8-10.8)
[2021-03-17 07:12] LABS: BUN Creatinine Ratio 32.7 (10-20); Creatinine Clr Calc Pharmacy 86.5 ml/min; Est GFR (African American) 107.8; Est GFR (Non-African American) 93.1; Potassium 4.1 mmol/L (3.5-5.1)
[2021-03-17] MEDS: SODIUM CHLORIDE 0.9% 1000ML 1,000 ML IV SCH (07:18)
[2021-03-17] MEDS: FLUTICASONE FUROATE 200MCG 14 PUFFS/INHALER INH SCH (08:38)
[2021-03-17] MEDS: PANTOprazole 40 MG TAB PO SCH (08:38)
[2021-03-17] MEDS: ESCITALOPRAM OXALATE 20 MG TAB PO SCH (08:38)
[2021-03-17] MEDS: CHOLECALCIFEROL 1,000 UNITS 25 MCG TAB PO SCH (08:38)
[2021-03-17] MEDS: POLYETHYLENE (MIRALAX) 17 GM PACK PO SCH (08:43)
--- NOTE | 2021-03-17 09:16 | Orthopedic Progress Note ---
Date of Service March 17, 2021 Assessment & Plan (1) Hip fracture: POD # 1, s/p IM krunal Right hip fracture, doing well. Resume diet. WBAT RLE, with walker. DVT prophylaxis: Lovenox 30 mg Subq x 3weeks, then switch to ASA 81 mg PO BID for another 3 weeks, TEDs for 3 weeks and SCDs while in hospital. Incentive spirometer PT/OT Will Change dressing 03/18/2021 D/C planning Continue care per primary service. Admission and Anticipated Discharge Date Admission Date: March 15, 2021 Subjective Right hip pain Review of Systems Review of Systems: All systems reviewed & are unremarkable except as noted in HPI & below Physical Exam Physical Exam: RLE: Sensation to light touch intact. Wiggling toes and ankles. Calf is soft and nontender. Dressing clean, dry, intact. Results & Data ([facility]) Vital Signs (Past 12 Hours) Vital Signs Temp Pulse Resp BP Pulse Ox 03/17/21 07:13 37.1 C 74 16 116/65 91 03/17/21 05:17 36.9 C 72 18 121/71 90 03/16/21 22:55 36.8 C 71 18 113/69 94 Laboratory Results 03/17/21 03/17/21 03/16/21 Range/Units 06:12 06:12 08:53 WBC 8.85 (4.8-10.8) K/uL RBC 2.78 L (4.2-5.4) M/uL Hgb 9.4 L D (12.0-16.0) g/dL Hct 27.5 L (37-47) % MCV 98.9 (80-100) fL MCH 33.8 (25-34) pg MCHC 34.2 (32-36) g/dL RDW Std Deviation 47.8 H (36.4-46.3) fL RDW Coeff of Rod 13.2 (11.5-14.5) % Plt Count 203 (130-400) K/uL MPV 9.8 (7.4-10.4) fL Immature Gran % (Auto) 0.2 % Neut % (Auto) 70.9 % Lymph % (Auto) 19.0 % [place] % (Auto) 9.8 % Eos % (Auto) 0.1 % Baso % (Auto) 0.0 % Neut # (Auto) 6.27 (1.4-6.5) K/uL Lymph # (Auto) 1.68 (1.2-3.4) K/uL [place] # (Auto) 0.87 H (0.11-0.59) K/uL Eos # (Auto) 0.01 (0-0.5) K/uL Baso # (Auto) 0.00 (0-0.2) K/uL Immature Gran # (Auto) 0.02 (0.00-0.02) K/uL Sodium 141 (136-145) mmol/L Potassium 4.1 (3.5-5.1) mmol/L Chloride 112 H (98-107) mmol/L Carbon Dioxide 23 (21-32) mmol/L Anion Gap 7.0 (3-11) BUN 18 (7-18) mg/dl Creatinine 0.55 L (0.6-1.2) mg/dl Est Cr Clr Drug Dosing 86.5 ml/min Est GFR ( Amer) 107.8 Est GFR (Non-Af Amer) 93.1 BUN/Creatinine Ratio 32.7 H (10-20) Glucose 93 (70-99) mg/dl Calcium 8.0 L (8.5-10.1) mg/dl Magnesium 2.0 (1.8-2.4) mg/dl Troponin I (0-0.045) ng/ml 25-OH Vitamin D Total 62.4 (30-100) ng/ml 03/16/21 Range/Units 05:51 WBC (4.8-10.8) K/uL RBC (4.2-5.4) M/uL Hgb (12.0-16.0) g/dL Hct (37-47) % MCV (80-100) fL MCH (25-34) pg MCHC (32-36) g/dL RDW Std Deviation (36.4-46.3) fL RDW Coeff of Rod (11.5-14.5) % Plt Count (130-400) K/uL MPV (7.4-10.4) fL Immature Gran % (Auto) % Neut % (Auto) % Lymph % (Auto) % [place] % (Auto) % Eos % (Auto) % Baso % (Auto) % Neut # (Auto) (1.4-6.5) K/uL Lymph # (Auto) (1.2-3.4) K/uL [place] # (Auto) (0.11-0.59) K/uL Eos # (Auto) (0-0.5) K/uL Baso # (Auto) (0-0.2) K/uL Immature Gran # (Auto) (0.00-0.02) K/uL Sodium (136-145) mmol/L Potassium (3.5-5.1) mmol/L Chloride (98-107) mmol/L Carbon Dioxide (21-32) mmol/L Anion Gap (3-11) BUN (7-18) mg/dl Creatinine (0.6-1.2) mg/dl Est Cr Clr Drug Dosing ml/min Est GFR ( Amer) Est GFR (Non-Af Amer) BUN/Creatinine Ratio (10-20) Glucose (70-99) mg/dl Calcium (8.5-10.1) mg/dl Magnesium (1.8-2.4) mg/dl Troponin I < 0.015 (0-0.045) ng/ml 25-OH Vitamin D Total (30-100) ng/ml (1) Hip fracture Encounter type: initial encounter Fracture type: closed Laterality: right Qualified Code(s): S72.001A - Fracture of unspecified part of neck of right femur, initial encounter for closed fracture
--- NOTE | 2021-03-17 10:03 | Hospitalist Progress Note ---
Date of Service March 17, 2021 Assessment & Plan (1) Hip fracture: * Mechanical Fall * Imaging:Acute comminuted displaced intertrochanteric fracture of the right femur with subtrochanteric extension. * Ortho on consult POD#1 p Right Intermediate Trochanteric Nail Synthes(Right) - Julian Washington MD Pre-op h/h . EBL 100cc h/h dropped to 9.4 post operatively -- acute blood loss anemia from fracture and surgery as well as dilutional as continuous IVF since admission. Decreased today however will repeat h/h this afternoon for stability. No cp, shortness of breath reported Decreased IVF to 80cc/hr as she is taking PO but volume down Pain controlled with current regimen Miralax/senna/docusate for bowel regimen -- +BS and passing gas. Currently stating she feels like she needs to have a BM Larisa, Gerardo catherine -- started Lovenox daily and to continue for 3 weeks then ASA 81mg BID x 3 weeks PT/OT evals for rehab . Will ask CM to send referrals (2) Asthma: * persistent well controlled * Patient uses her albuterol 1-4 times per week and rarely wakes up at night to use her DUC * Continue albuterol PRN * Continue daily Fluticasone II puffs * Stable on room air (3) Arthritis: (4) Depression with anxiety: * No acute needs * Continue escitalopram 20 mg (5) Osteoporosis: * As above * Continued on supplementation 2000 IU daily * VIt D level wnl (6) Vitamin D deficiency disease: * As above no acute needs. (7) GERD (gastroesophageal reflux disease): * Protonix 40mg daily while inpatient (8) DVT prophylaxis: * SCD's and TEDFavio tonight per ORTHO * Lovenox SQ x 3 weeks then ASA 81mg BID x 3 weeks Dispo: PT/OT with recs for rehab at d/c CM to send referrals Possible d/c when bed available if labs remain stable on repeat Admission and Anticipated Discharge Date Admission Date: March 15, 2021 Supervising Physician Co-Signing Physician Notes PA Supervision Note: I did not personally see or examine the patient today, but I verified all yarbrough points of EVER Duncan's assessment and plan with the following exceptions/additions: None Subjective Patient evaluated this morning. She states that her pain is controlled with oral medications and that she rates it a 3 out of 10 at rest but does increase to a 7 or 8 out of 10 with ambulation. Was previously rating her pain 10 out of 10 this morning to her right hip. She notes she did work with therapy this morning and was able to ambulate some but did have increased nausea from pain afterwards but no emesis. .Eating and drinking without difficulty however she states after lunch she is feeling more full due to large meal and is not hungry at this time. She notes she has been having increasing amount of gas at this current time and feels like she has to have a bowel movement and will notify nursing to help her to the restroom. She denies any fever, chills, chest pain, shortness of breath, abdominal discomfort, nausea, vomiting at this time. We will check blood counts this afternoon to ensure stability Review of Systems Review of Systems: All systems reviewed & are unremarkable except as noted in HPI & below Physical Exam Physical Exam: PHYSICAL EXAM: General: awake, alert, no apparent distress, comfortably up inchair eating lunch at this time Head: Normocephalic, atraumatic ENT: PERRL, EOMI, no pharyngeal exudate, mucous membranes slightly dry Neuro: AAO x 3, speech clear and appropriate, , sensation intact and equal all extremities and dermatomes, no pronator drift Chest: equal rise and fall of the chest, no accessory muscle use, no heaves or thrills, Clear to auscultation, on room air, Cardiac: Regular rate and rhythm, S1S2, telemetry reviewed, skin warm dry, cap refill <3 seconds, peripheral pulses +2 no JVD, no murmur, GI: NABS x 4 quadrants, soft, nontender to palpation, no rebound, guarding or tenderness : Knapp catheter to gravity draining light yellow urine with some tinge of blood noted no CVA tenderness, Extremities: right hip pain, no rotation,. NV/CV intact to entire right leg, no peripheral erythema, calfs nontender to palpation, pulses palpable bilaterally. trace edema to R thigh dressing c/d/i. minimally tender to palpation. No obvious hematoma or drainage noted. Psych: Normal mood and affect, AOx3 Skin: no rash or erythema Results & Data Results & Data ([facility]) Vital Signs (Past 12 Hours) Vital Signs Temp Pulse Resp BP Pulse Ox 03/17/21 07:13 37.1 C 74 16 116/65 91 03/17/21 05:17 36.9 C 72 18 121/71 90 03/16/21 22:55 36.8 C 71 18 113/69 94 Laboratory Results 03/17/21 03/17/21 03/16/21 Range/Units 06:12 06:12 05:51 WBC 8.85 (4.8-10.8) K/uL RBC 2.78 L (4.2-5.4) M/uL Hgb 9.4 L D (12.0-16.0) g/dL Hct 27.5 L (37-47) % MCV 98.9 (80-100) fL MCH 33.8 (25-34) pg MCHC 34.2 (32-36) g/dL RDW Std Deviation 47.8 H (36.4-46.3) fL RDW Coeff of Rod 13.2 (11.5-14.5) % Plt Count 203 (130-400) K/uL MPV 9.8 (7.4-10.4) fL Immature Gran % (Auto) 0.2 % Neut % (Auto) 70.9 % Lymph % (Auto) 19.0 % [place] % (Auto) 9.8 % Eos % (Auto) 0.1 % Baso % (Auto) 0.0 % Neut # (Auto) 6.27 (1.4-6.5) K/uL Lymph # (Auto) 1.68 (1.2-3.4) K/uL [place] # (Auto) 0.87 H (0.11-0.59) K/uL Eos # (Auto) 0.01 (0-0.5) K/uL Baso # (Auto) 0.00 (0-0.2) K/uL Immature Gran # (Auto) 0.02 (0.00-0.02) K/uL Sodium 141 (136-145) mmol/L Potassium 4.1 (3.5-5.1) mmol/L Chloride 112 H (98-107) mmol/L Carbon Dioxide 23 (21-32) mmol/L Anion Gap 7.0 (3-11) BUN 18 (7-18) mg/dl Creatinine 0.55 L (0.6-1.2) mg/dl Est Cr Clr Drug Dosing 86.5 ml/min Est GFR ( Amer) 107.8 Est GFR (Non-Af Amer) 93.1 BUN/Creatinine Ratio 32.7 H (10-20) Glucose 93 (70-99) mg/dl Calcium 8.0 L (8.5-10.1) mg/dl Magnesium 2.0 (1.8-2.4) mg/dl Troponin I < 0.015 (0-0.045) ng/ml PG Care Time/CCT Total # of Minutes Spent Total Time Spent with Patient: Total time spent is greater than 50% in coordination of care (as documented) at patient's floor/unit and/or counseling patient: Coding Level of Care Code 81777 Subseq Hosp Care Lvl 3 Diagnoses Hip fracture S72.001A Encounter type: initial encounter Fracture type: closed Laterality: right Asthma J45.909 Asthma complication type: uncomplicated Asthma persistence: unspecified Asthma severity: mild Arthritis M19.90 Depression with anxiety F41.8 Osteoporosis M81.0 Osteoporosis type: unspecified Presence of current pathological fracture: unspecified Vitamin D deficiency disease E55.9 GERD (gastroesophageal reflux disease) K21.9 DVT prophylaxis Z29.9 (1) Hip fracture Encounter type: initial encounter Fracture type: closed Laterality: right Qualified Code(s): S72.001A - Fracture of unspecified part of neck of right femur, initial encounter for closed fracture (2) Osteoporosis Osteoporosis type: unspecified Presence of current pathological fracture: unspecified Qualified Code(s): M81.0 - Age-related osteoporosis without current pathological fracture (3) Asthma Asthma complication type: uncomplicated Asthma persistence: unspecified Asthma severity: mild Qualified Code(s): J45.909 - Unspecified asthma, uncomplicated
[2021-03-17] MEDS: ENOXAPARIN INJ 40 MG/0.4 ML SYR SQ SCH (11:01)
[2021-03-17] MEDS: SODIUM CHLORIDE 0.45 % 1,000 ML IV SCH ×2 (11:01→23:31)
--- NOTE | 2021-03-17 11:05 | Operative Report ---
Post Operative Report Pre & Post Diagnosis Operation Date: 03/16/21 10:30 Pre-Op Diagnosis: Right introtrochanteric fracture Post-Op Diagnosis: Right introtrochanteric fracture I identified the patient and participated in the time-out.: Yes Procedure Operation Date: 03/16/21 10:30 Actual Procedures p Right Intermediate Trochanteric Nail Synthes(Right) - Julian Washington MD Surgeon Julian Washington MD Biometrics Technician Bev Ndiaye MD Estimated Blood Loss 100 Findings Consistent with Post-Op Diagnosis Specimens none Anesthesia Type General Complications none Disposition Accompanied Patient To Recovery: Yes Disposition: Recovery Room Description of Procedure as per 's note, I assisted in prepping and draping, instruments handling, certain parts of the procedure and wound closure, I attest to the content of the Intraoperative Record and any orders documented therein. Any exceptions are noted below.
[2021-03-17 14:53] LABS: Hematocrit (blood only) 28.1 % (37-47); Hemoglobin 9.6 g/dL (12.0-16.0); Mean Corpuscular Hemoglobin 33.4 pg (25-34); Mean Corpuscular Hgb Conc 34.2 g/dL (32-36); Mean Corpuscular Volume 97.9 fL (80-100); Mean Platelet Volume 9.9 fL (7.4-10.4); Platelet Count 211 K/uL (130-400); RDW Coefficient of Variation 13.2 % (11.5-14.5); RDW Standard Deviation 47.3 fL (36.4-46.3); Red Blood Count 2.87 M/uL (4.2-5.4); White Blood Count 11.02 K/uL (4.8-10.8)
[2021-03-17 15:19] LABS: BUN Creatinine Ratio 21.9 (10-20); Calcium 8.2 mg/dl (8.5-10.1); Creatinine Clr Calc Pharmacy 51.1 ml/min; Est GFR (African American) 70.7
[2021-03-17] MEDS: DOCUSATE SODIUM/SENNA 50/8.6MG TAB PO SCH (21:48)
[2021-03-17] MEDS: ACETAMINOPHEN 325 MG TAB PO PRN (21:53)
[2021-03-17] MEDS: traMADol HCL 50 MG TABLET PO PRN (21:54)
[2021-03-17] MEDS ORDERED: CALCIUM CARBONATE 500 MG CHEWABLE TAB PO PRN ×2 (22:27→22:53)
[2021-03-18] MEDS: traMADol HCL 50 MG TABLET PO PRN ×5 (04:42→23:49)
[2021-03-18] MEDS: ACETAMINOPHEN 325 MG TAB PO PRN ×3 (04:42→21:31)
[2021-03-18 06:19] LABS: Basophils # (auto) 0.01 K/uL (0-0.2); Basophils % (auto) 0.1 %; Eosinophils # (auto) 0.02 K/uL (0-0.5); Eosinophils % (auto) 0.2 %; Hematocrit (blood only) 25.1 % (37-47); Hemoglobin 8.5 g/dL (12.0-16.0); Immature Granulocytes # (auto) 0.02 K/uL (0.00-0.02); Immature Granulocytes % (auto) 0.2 %; Lymphocytes # (auto) 2.37 K/uL (1.2-3.4); Lymphocytes % (auto) 24.4 %; Mean Corpuscular Hemoglobin 33.2 pg (25-34); Mean Corpuscular Hgb Conc 33.9 g/dL (32-36); Mean Platelet Volume 9.8 fL (7.4-10.4); Monocytes # (auto) 0.93 K/uL (0.11-0.59); Monocytes % (auto) 9.6 %; Neutrophils # (auto) 6.35 K/uL (1.4-6.5); Neutrophils % (auto) 65.5 %; Platelet Count 175 K/uL (130-400); Red Blood Count 2.56 M/uL (4.2-5.4)
[2021-03-18 06:52] LABS: BUN Creatinine Ratio 19.5 (10-20); Calcium 8.7 mg/dl (8.5-10.1); Creatinine Clr Calc Pharmacy 74.3 ml/min; Est GFR (African American) 102.6; Est GFR (Non-African American) 88.5; Magnesium 1.9 mg/dl (1.8-2.4); Potassium 3.5 mmol/L (3.5-5.1)
[2021-03-18] MEDS: CHOLECALCIFEROL 1,000 UNITS 25 MCG TAB PO SCH (08:21)
[2021-03-18] MEDS: POLYETHYLENE (MIRALAX) 17 GM PACK PO SCH (08:22)
[2021-03-18] MEDS: ESCITALOPRAM OXALATE 20 MG TAB PO SCH (08:22)
[2021-03-18] MEDS: FLUTICASONE FUROATE 200MCG 14 PUFFS/INHALER INH SCH (08:22)
[2021-03-18] MEDS: PANTOprazole 40 MG TAB PO SCH (08:22)
--- NOTE | 2021-03-18 09:41 | Orthopedic Progress Note ---
Date of Service March 18, 2021 Assessment & Plan (1) Hip fracture: POD # 2, s/p IM krunal Right hip fracture, doing well. Resume diet. WBAT RLE, with walker. DVT prophylaxis: Lovenox 30 mg Subq x 3weeks, then switch to ASA 81 mg PO BID for another 3 weeks, TEDs for 3 weeks and SCDs while in hospital. Incentive spirometer PT/OT Acute anemia blood loss, Hgb 8.5, will continue to monitor. Changed dressing 03/18/2021. Will change to Silverlon dressing tomorrow. D/C planning Continue care per primary service. Admission and Anticipated Discharge Date Admission Date: March 15, 2021 Subjective Right leg pain Review of Systems Review of Systems: All systems reviewed & are unremarkable except as noted in HPI & below Not eating well, no appetite. + BM Physical Exam Physical Exam: RLE: Sensation to light touch intact. Wiggling toes and ankles. Calf is soft and nontender. Incisions clean, dry, intact, some old dried blood. Results & Data ([facility]) Vital Signs (Past 12 Hours) Vital Signs Temp Pulse Resp BP Pulse Ox 03/18/21 08:21 36.7 C 78 16 133/72 94 03/17/21 22:48 36.9 C 84 18 131/74 93 Laboratory Results 03/18/21 03/18/21 03/17/21 Range/Units 05:42 05:42 14:36 WBC 9.70 (4.8-10.8) K/uL RBC 2.56 L (4.2-5.4) M/uL Hgb 8.5 L (12.0-16.0) g/dL Hct 25.1 L (37-47) % MCV 98.0 (80-100) fL MCH 33.2 (25-34) pg MCHC 33.9 (32-36) g/dL RDW Std Deviation 47.0 H (36.4-46.3) fL RDW Coeff of Rod 13.0 (11.5-14.5) % Plt Count 175 (130-400) K/uL MPV 9.8 (7.4-10.4) fL Immature Gran % (Auto) 0.2 % Neut % (Auto) 65.5 % Lymph % (Auto) 24.4 % [place] % (Auto) 9.6 % Eos % (Auto) 0.2 % Baso % (Auto) 0.1 % Neut # (Auto) 6.35 (1.4-6.5) K/uL Lymph # (Auto) 2.37 (1.2-3.4) K/uL [place] # (Auto) 0.93 H (0.11-0.59) K/uL Eos # (Auto) 0.02 (0-0.5) K/uL Baso # (Auto) 0.01 (0-0.2) K/uL Immature Gran # (Auto) 0.02 (0.00-0.02) K/uL Sodium 143 139 (136-145) mmol/L Potassium 3.5 4.0 (3.5-5.1) mmol/L Chloride 112 H 108 H (98-107) mmol/L Carbon Dioxide 26 23 (21-32) mmol/L Anion Gap 5.0 8.0 (3-11) BUN 12 20 H (7-18) mg/dl Creatinine 0.64 0.93 D (0.6-1.2) mg/dl Est Cr Clr Drug Dosing 74.3 51.1 ml/min Est GFR ( Amer) 102.6 70.7 Est GFR (Non-Af Amer) 88.5 61.0 BUN/Creatinine Ratio 19.5 21.9 H (10-20) Glucose 100 H 137 H (70-99) mg/dl Calcium 8.7 8.2 L (8.5-10.1) mg/dl Magnesium 1.9 (1.8-2.4) mg/dl 03/17/21 Range/Units 14:36 WBC 11.02 H (4.8-10.8) K/uL RBC 2.87 L (4.2-5.4) M/uL Hgb 9.6 L (12.0-16.0) g/dL Hct 28.1 L (37-47) % MCV 97.9 (80-100) fL MCH 33.4 (25-34) pg MCHC 34.2 (32-36) g/dL RDW Std Deviation 47.3 H (36.4-46.3) fL RDW Coeff of Rod 13.2 (11.5-14.5) % Plt Count 211 (130-400) K/uL MPV 9.9 (7.4-10.4) fL Immature Gran % (Auto) % Neut % (Auto) % Lymph % (Auto) % [place] % (Auto) % Eos % (Auto) % Baso % (Auto) % Neut # (Auto) (1.4-6.5) K/uL Lymph # (Auto) (1.2-3.4) K/uL [place] # (Auto) (0.11-0.59) K/uL Eos # (Auto) (0-0.5) K/uL Baso # (Auto) (0-0.2) K/uL Immature Gran # (Auto) (0.00-0.02) K/uL Sodium (136-145) mmol/L Potassium (3.5-5.1) mmol/L Chloride (98-107) mmol/L Carbon Dioxide (21-32) mmol/L Anion Gap (3-11) BUN (7-18) mg/dl Creatinine (0.6-1.2) mg/dl Est Cr Clr Drug Dosing ml/min Est GFR ( Amer) Est GFR (Non-Af Amer) BUN/Creatinine Ratio (10-20) Glucose (70-99) mg/dl Calcium (8.5-10.1) mg/dl Magnesium (1.8-2.4) mg/dl (1) Hip fracture Encounter type: initial encounter Fracture type: closed Laterality: right Qualified Code(s): S72.001A - Fracture of unspecified part of neck of right femur, initial encounter for closed fracture
[2021-03-18] MEDS: ENOXAPARIN INJ 40 MG/0.4 ML SYR SQ SCH (10:55)
[2021-03-18] MEDS: SODIUM CHLORIDE 0.45 % 1,000 ML IV SCH (11:56)
--- NOTE | 2021-03-18 15:12 | Hospitalist Progress Note ---
Date of Service March 18, 2021 Assessment & Plan (1) Hip fracture: * Mechanical Fall * Imaging:Acute comminuted displaced intertrochanteric fracture of the right femur with subtrochanteric extension. * Ortho on consult - S/p Right Intermediate Trochanteric Nail Synthes(Right) - Julian Washington MD on 03/16/2021 Pre-op h/h 14/40. EBL 100cc h/h dropped to 9.4 post operatively -- acute blood loss anemia from fracture and surgery as well as dilutional as continuous IVF since admission. Decreased today however will repeat h/h this afternoon for stability. No cp, shortness of breath reported Decreased IVF to 80cc/hr as she is taking PO but volume down Miralax/senna/docusate for bowel regimen -- +BS and passing gas. Currently stating she feels like she needs to have a BM Gerardo Peres -- started Lovenox daily and to continue for 3 weeks then ASA 81mg BID x 3 weeks - Increase pain meds slightly today and encouraged her to use them prior to working with PT. (2) Asthma: * persistent well controlled * Patient uses her albuterol 1-4 times per week and rarely wakes up at night to use her UDC * Continue albuterol PRN * Continue daily Fluticasone II puffs * Stable on room air (3) Arthritis: * Tylenol * - hold VIT D until post op (4) Depression with anxiety: * No acute needs * Continue escitalopram 20 mg (5) Osteoporosis: * As above * Continued on supplementation 2000 IU daily * VIt D level wnl (6) Vitamin D deficiency disease: * As above no acute needs. (7) GERD (gastroesophageal reflux disease): * Protonix 40mg daily while inpatient (8) DVT prophylaxis: * SCD's and IONA tonight per ORTHO * Lovenox SQ x 3 weeks then ASA 81mg BID x 3 weeks Admission and Anticipated Discharge Date Admission Date: March 15, 2021 Subjective Still reports immense pain in the right hip. She feels it is as bad as when she first came in with the broken hip. Reports no fevers/chills, chest pain, shortness of breath, abdominal pain, nausea, or vomiting. Physical Exam Constitutional: WD/WN, vitals as above Eyes: EOM intact bilaterally; no conjunctival abnormality ENMT: external ear and nose normal, oropharynx normal Neck: trachea midline, no thyromegaly normal visual inspection Respiratory: normal respiratory effort, lungs clear to auscultation no respiratory distress Cardiovascular: RRR, no murmur, no edema Gastrointestinal (Abdomen): Inspection/Auscultation: abdomen normal to i nspection; abdomen not distended Musculoskeletal: no cyanosis or clubbing, extremities motor strength 5/5 Skin: no rashes, warm and dry Neurologic: moves all extremities and awake Psychiatric: Orientation: alert, oriented to person and cooperative Results & Data Results & Data ([facility]) Vital Signs (Past 12 Hours) Vital Signs Temp Pulse Resp BP Pulse Ox 03/18/21 08:21 36.7 C 78 16 133/72 94 PG Care Time/CCT Total # of Minutes Spent Total Time Spent with Patient: Total time spent is greater than 50% in coordination of care (as documented) at patient's floor/unit and/or counseling patient: Coding Level of Care Code 76213 Subseq Hosp Care Lvl 2 Diagnoses Hip fracture S72.001A Encounter type: initial encounter Fracture type: closed Laterality: right Asthma J45.909 Asthma severity: mild Asthma persistence: unspecified Asthma complication type: uncomplicated Arthritis M19.90 Depression with anxiety F41.8 Osteoporosis M81.0 Osteoporosis type: unspecified Presence of current pathological fracture: unspecified Vitamin D deficiency disease E55.9 GERD (gastroesophageal reflux disease) K21.9 DVT prophylaxis Z29.9 (1) Hip fracture Encounter type: initial encounter Fracture type: closed Laterality: right Qualified Code(s): S72.001A - Fracture of unspecified part of neck of right femur, initial encounter for closed fracture (2) Asthma Asthma severity: mild Asthma persistence: unspecified Asthma complication type: uncomplicated Qualified Code(s): J45.909 - Unspecified asthma, uncomplicated (3) Osteoporosis Osteoporosis type: unspecified Presence of current pathological fracture: unspecified Qualified Code(s): M81.0 - Age-related osteoporosis without current pathological fracture
[2021-03-18] MEDS: DOCUSATE SODIUM/SENNA 50/8.6MG TAB PO SCH (21:30)
[2021-03-19] MEDS: traMADol HCL 50 MG TABLET PO PRN ×2 (03:54→09:13)
[2021-03-19 06:38] LABS: Basophils # (auto) 0.02 K/uL (0-0.2); Basophils % (auto) 0.2 %; Eosinophils # (auto) 0.15 K/uL (0-0.5); Eosinophils % (auto) 1.4 %; Hematocrit (blood only) 24.4 % (37-47); Hemoglobin 8.3 g/dL (12.0-16.0); Immature Granulocytes # (auto) 0.02 K/uL (0.00-0.02); Immature Granulocytes % (auto) 0.2 %; Lymphocytes # (auto) 2.97 K/uL (1.2-3.4); Mean Corpuscular Hemoglobin 33.1 pg (25-34); Mean Corpuscular Volume 97.2 fL (80-100); Mean Platelet Volume 9.6 fL (7.4-10.4); Monocytes # (auto) 0.89 K/uL (0.11-0.59); Monocytes % (auto) 8.1 %; Neutrophils # (auto) 6.94 K/uL (1.4-6.5); Neutrophils % (auto) 63.1 %; Platelet Count 209 K/uL (130-400); RDW Coefficient of Variation 13.1 % (11.5-14.5); RDW Standard Deviation 46.4 fL (36.4-46.3); Red Blood Count 2.51 M/uL (4.2-5.4); White Blood Count 10.99 K/uL (4.8-10.8)
[2021-03-19] MEDS: ESCITALOPRAM OXALATE 20 MG TAB PO SCH (09:07)
[2021-03-19] MEDS: FLUTICASONE FUROATE 200MCG 14 PUFFS/INHALER INH SCH (09:08)
[2021-03-19] MEDS: CHOLECALCIFEROL 1,000 UNITS 25 MCG TAB PO SCH (09:08)
[2021-03-19] MEDS: POLYETHYLENE (MIRALAX) 17 GM PACK PO SCH (09:08)
[2021-03-19] MEDS: PANTOprazole 40 MG TAB PO SCH (09:08)
--- NOTE | 2021-03-19 11:18 | Orthopedic Progress Note ---
Date of Service March 19, 2021 Assessment & Plan (1) Hip fracture: POD # 3, s/p IM krunal Right hip fracture, doing well. Resume diet. WBAT RLE, with walker. DVT prophylaxis: Lovenox 30 mg Subq x 3weeks, then switch to ASA 81 mg PO BID for another 3 weeks, TEDs for 3 weeks and SCDs while in hospital. Incentive spirometer PT/OT Acute anemia blood loss, Hgb 8.3 Per medicine service patient is deemed stable for discharge to [facility] for rehabilitation later today Silverlon dressings and Tegaderms placed today Keep dressings intact until patient is 2-week postoperative follow-up I, Dr. Washington, saw and examined the patient and discussed the management with my PA. I reviewed my PAs note and agree with the documented findings and the plan of care I developed. Admission and Anticipated Discharge Date Admission Date: March 15, 2021 Subjective This 75-year-old female seen this morning. She is 3 days status post Right Intermediate Trochanteric Nail. Patient states that she is being transferred to [facility] for rehabilitation following her fracture. Currently she states she has significant pain in the right hip and thigh area. She has been doing therapy with difficulty. She states that she spoke with the medicine service this morning and they are planning on her transfer later this afternoon. Currently she denies chest pain, shortness of breath, fever, chills, sweats, lethargy or numbness or tingling in her right lower extremity. Review of Systems Review of Systems: All systems reviewed & are unremarkable except as noted in Subjective Physical Exam Physical Exam: Right hip: Outer dressings were removed and zipper lines were kept in place. Silverlon dressings were placed over the proximal 2 incisions and a Tegaderm was placed over the distal incision site. Patient did have some ecchymosis tracking posteriorly from the proximal 2 incisions. There is no fluctuance or drainage noted. Some dried blood was cleansed from the area with normal saline soaked 4 x 4's. Patient was able to actively dorsi and plantarflex her foot without difficulty. Passive range of motion of her knee was from 0 to 45 degrees before patient experienced hip pain. Logroll test was negative. Peripheral pulses were 2+. Her calf is soft and supple nontender to palpation. Quad strength is 2 out of 5. Results & Data ([facility]) Vital Signs (Past 12 Hours) Vital Signs Temp Pulse Resp BP Pulse Ox Pulse Ox 03/19/21 08:23 36.6 C 84 16 144/78 H 95 03/19/21 00:00 95 Laboratory Results 03/19/21 Range/Units 06:11 WBC 10.99 H (4.8-10.8) K/uL RBC 2.51 L (4.2-5.4) M/uL Hgb 8.3 L (12.0-16.0) g/dL Hct 24.4 L (37-47) % MCV 97.2 (80-100) fL MCH 33.1 (25-34) pg MCHC 34.0 (32-36) g/dL RDW Std Deviation 46.4 H (36.4-46.3) fL RDW Coeff of Rod 13.1 (11.5-14.5) % Plt Count 209 (130-400) K/uL MPV 9.6 (7.4-10.4) fL Immature Gran % (Auto) 0.2 % Neut % (Auto) 63.1 % Lymph % (Auto) 27.0 % [place] % (Auto) 8.1 % Eos % (Auto) 1.4 % Baso % (Auto) 0.2 % Neut # (Auto) 6.94 H (1.4-6.5) K/uL Lymph # (Auto) 2.97 (1.2-3.4) K/uL [place] # (Auto) 0.89 H (0.11-0.59) K/uL Eos # (Auto) 0.15 (0-0.5) K/uL Baso # (Auto) 0.02 (0-0.2) K/uL Immature Gran # (Auto) 0.02 (0.00-0.02) K/uL (1) Hip fracture Encounter type: initial encounter Fracture type: closed Laterality: right Qualified Code(s): S72.001A - Fracture of unspecified part of neck of right femur, initial encounter for closed fracture
[2021-03-19] MEDS: ENOXAPARIN INJ 40 MG/0.4 ML SYR SQ SCH (11:36)
[2021-03-19] MEDS: ACETAMINOPHEN 325 MG TAB PO PRN (12:01)
--- NOTE | 2021-03-19 17:20 | Discharge Summary ---
Date of Service March 19, 2021 Admission HPI Per Admitting Provider 75 YOF with past medical history of asthma, she reports mitral valve prolapse (but ECHO from 2020with mild MR), anxiety, fall in 2019 with wrist sprain, arthritis. Patient was at home today, when she tripped over a rug and fell directly on to her left hip on a carpeted floor. The patient had immediate pain and could not move her leg. Her called 911 and came to the emergency room. She does not endorse any other pain or trauma following her fall. She denies hitting her head or shoulder. Patient had a fall back in 2019 that resulted in a sprained wrist. She rates her pain now as a 6/10 and is clutching her left hip. Dr. Rosales has already consulted Dr. Washington of orthopaedics and he has evaluated her as well. Patient will be admitted to the medical surgical floor and scheduled for OR tomorrow. She will be kept NPO after midnight. EKG NSR and normal CXR with only noting old left rib fractures She had an ECHO in 2019 for her workup of dyspnea that had mild cocentric LVH EF 60-65% mild MR, normal Aortic Valve- grade I diastolic dysfunction Patient does endorse that she has had difficulty with nausea and vomiting postoperatively before. Her allergy to acetaminophen and oxycodone she reports was GI upset prior to her DX with GERD and since she has been on the omeprazole, she has not had any difficulty. Principal Diagnosis Hip fracture Discharge Exam Constitutional WD/WN, vitals as above Eyes EOM intact bilaterally; no conjunctival abnormality ENMT external ear and nose normal, oropharynx normal Neck trachea midline, no thyromegaly normal visual inspection Respiratory normal respiratory effort, lungs clear to auscultation no respiratory distress Cardiovascular RRR, no murmur, no edema Gastrointestinal (Abdomen) Inspection/Auscultation: abdomen normal to inspection; abdomen not distended Musculoskeletal no cyanosis or clubbing, extremities motor strength 5/5 Skin no rashes, warm and dry Neurologic moves all extremities and awake Psychiatric Orientation: alert, oriented to person and cooperative Discharge Data Allergies Allergy/AdvReac Type Severity Reaction Status Date / Time acetaminophen [From Percocet] AdvReac Verified 11/07/20 08:57 oxycodone [From Percocet] AdvReac Verified 11/07/20 08:57 Penicillins AdvReac Verified 11/07/20 08:57 verapamil AdvReac Verified 11/07/20 08:57 Codeine Derivatives Allergy Mild Uncoded 08/02/20 09:49 Consultations 03/15/21 16:49 Consult Orthopedic Surgery Stat 03/15/21 16:51 ED Decision to Admit Stat 03/15/21 20:12 Consult Anesthesiology Routine Consult Orthopedic Surgery Routine Procedures Performed Operation Date: 03/16/21 10:30 Actual Procedures p Right Intermediate Trochanteric Nail Synthes(Right) - Julian Dean Washington MD Ordered Studies 03/16/21 [place] hip RT 2-3V Routine Hospital Course (1) Hip fracture: * Mechanical Fall * Imaging:Acute comminuted displaced intertrochanteric fracture of the right femur with subtrochanteric extension. * Ortho on consult - S/p Right Intermediate Trochanteric Nail Synthes(Right) - Julian Dean Washington MD on 03/16/2021 Pre-op h/h 14/40. EBL 100cc h/h dropped to 9.4 post operatively -- acute blood loss anemia from fracture and surgery as well as dilutional as continuous IVF since admission. Decreased today however will repeat h/h this afternoon for stability. No cp, shortness of breath reported Miralax/senna/docusate for bowel regimen -- +BS and passing gas. Currently stating she feels like she needs to have a BM Gerardo Peres -- started Lovenox daily and to continue for 3 weeks then ASA 81mg BID x 3 weeks (2) Asthma: * persistent well controlled * Patient uses her albuterol 1-4 times per week and rarely wakes up at night to use her DUC * Continue albuterol PRN * Continue daily Fluticasone II puffs * Stable on room air (3) Arthritis: * Tylenol * - hold VIT D until post op (4) Depression with anxiety: * No acute needs * Continue escitalopram 20 mg (5) Osteoporosis: * As above * Continued on supplementation 2000 IU daily * VIt D level wnl (6) Vitamin D deficiency disease: * As above no acute needs. (7) GERD (gastroesophageal reflux disease): * Protonix 40mg daily while inpatient (8) DVT prophylaxis: * VAUGHN's and IONA tonight per ORTHO * Lovenox SQ x 3 weeks then ASA 81mg BID x 3 weeks Total Time Total Time Spent Total Time Spent (In Minutes): 35 Discharge Plan Discharge Items Patient Disposition: Transfer Inpatient Rehab Fac Reason For Visit: FALL, RIGHT INTERTROCHATERIC FRACTURE Discharge Diagnosis: Right hip fracture Condition on Discharge: Fair Activity: Per Instructions section Weightbearing: Right weightbearing Weightbearing Comment: with assistance of a walker Non-emergency contact: Surgeon Call non-emergency contact if: your pain is not controlled, your temperature is above 101, your wound has increased redness and your wound has increased drainage Follow-up/Referrals: Amado Watson MD [Primary Care Provider] - Roxie Carter P.A.-C. [Physician Phosphoric Acid Supervisor] - 04/02/21 9:00 am Diet: Regular Addtl Attending Provider Instructions: None Addtl Analytics Lead Provider Instructions: New Medicine: * You will likely be taking one or more of these medicines: 1. oxycodone - Take, as directed, when you need it, every four to six hours to control your pain. 2. Iron Sulfate - Take three times each day for the month after surgery to help you replace the blood lost during surgery. Over the counter. 3. Vitamin C- take twice daily while on Iron - over the counter 4. Colace - take twice daily while on pain medication - over the counter 5. Lovenox - Take 30 mg SQ daily x 3 weeks. 6. Aspirin - take twice daily x 3 weeks to prevent blood clots. Take with food. Over the counter. (Take AFTER finishing Lovenox for 3 weeks. NOT both at the same time.) * The most common side effects of pain medicine and iron are nausea and constipation. If nausea or constipation is too much of a problem or if you have any questions about your new medicines or doses, call [facility] at . We will try to help you manage these issues. "VERY IMPORTANT TO READ AND REVIEW" Blood Clots and Blood Thinning Medicine: * You are given a blood thinner during the immediate post-operative period to lessen the risk of blood clots forming in your legs and/or lungs. Lovenox or aspirin are usually given for 4-6 weeks after surgery. Pain: * The immediate post-operative period after hip surgery is often quite painful. * You are given a prescription for pain medicine. You should take it, as directed, when you need it, especially before physical therapy and before going to bed. Pain that interferes with sleep is very common and can last several months. * You will likely need pain medicine for the first two to four weeks. It will not stop all of the pain. The pain will lessen and as you feel better, you may change to milder pain medicine such as Tylenol. * The most common side effects of pain medicine are nausea and constipation, so don't take more than you need. Dressings: * Keep Silverlon dressing in place left hip. Do not remove, you may shower with this dressing in place. Change Tegaderm dressings right distal incision as needed. Physical Therapy: * Follow the range of motion instructions given to you by the therapist in the hopspital. You may do full range of motion on your left hip as tolerated. * You may weight bear as tolerated on your left hip with the assistance of a walker. * You may do strengthening and stretching exercises as tolerated of your left leg * You will need a walker/crutches to assist with ambulation. * In some cases, the social services technician at the hospital will arrange to have a therapist come to your house for the first couple of weeks to help you learn these skills. * You need to practice on your own or with the help of a family member as needed. * When you learn these skills, most of the therapy can be done on your own. Home Exercise: * You were shown a series of exercises in the hospital. Do these exercises three to four times each day including the exercises you were shown in physical therapy. Walking: * Get up and walk several times each day. For the first four weeks, try not to stand or walk for more than one hour at a time. If you do stand or walk for more than one hour, you will not hurt anything, but your leg will likely swell. * As you feel comfortable, you may change from the walker or crutches to a cane and then to independent walking. SELF CARE INSTRUCTIONS AFTER TOTAL HIP REPLACEMENT Until the incision and soft tissues around your hip have healed, there is a possibility that the hip prosthesis could dislocate. A. You may weight bear as tolerated left hip. B. Your balance may be shaky for a while. Use crutches or a walker until directed by your doctor. C. Use hand rails when walking on stairs. D. Wear low heeled shoes with non-slip soles. E. Be sure that your floors are free of things that could trip you - throw rugs, electrical cords, small objects. Avoid wet and waxed floors, especially with crutches and canes. F. Try to walk several times a day with rest periods between. G. Continue with all the exercises taught to you in the hospital. Again, make walking a part of your daily routine. VERY IMPORTANT TO READ AND REVIEW A. Take Asprin (blood thinning medications) as directed by your doctor. B. There are a few signs you need to watch for after you are home. If you not ice any of the followin. Increased severe hip pain. Some pain is expected especially when you exercise. 2. Increased swelling in your leg or knee; pain or swelling of the calf muscle in either lower leg. 3. Any fluid drainage from the incision. 4. Shortness of breath or chest pain. TEDs/Elastic Stockings: * The white elastic stockings help limit swelling and prevent blood clots from forming in your legs. The more you wear them, the more they work. * Wear them for six weeks. Prevention of Infection: * Take antibiotics one hour before any dental cleaning, dental work, urological procedure, gastrointestinal procedure or any invasive surgery in order to prevent your new joint from getting infected. * You may get the antibiotics from the doctor performing the procedure or we will call in a prescription to the pharmacy of your choice. Call the office for a prescription at least 2 days prior to your appointment. Things to Watch For: * Drainage from the incision site that occurs more than one week after your surgery. * Severely increased leg pain or swelling. * Increased redness at the incision site. * Fever above 101 degrees Fahrenheit. * Unusual chest pain or shortness of breath. * Unusual pain or burning with urination. Pending Studies at Discharge: No Stand-Alone Forms: My [facility] Skilled Items Patient informed of condition?: Yes DNR: No Discharge Level of Care: Acute rehab Communicable Disease: No Discharge Prognosis: Improving Lines: None Urinary Catheter: No Medications and DC Order Prescriptions: New enoxaparin 40 mg/0.4 mL Syringe 30 mg subcut Q24H Qty: 0 RF: 0 Continued albuterol sulfate 90 mcg/actuation HFA aerosol inhaler 2 inh inhalation Q4H PRN (Reason: shortness of breath or wheezing) Qty: 8.5 RF: 5 escitalopram oxalate 20 mg tablet 20 mg PO DAILY Qty: 30 RF: 0 omeprazole 20 mg capsule,delayed release(DR/EC) 20 mg PO DAILY Qty: 30 RF: 0 cholecalciferol (vitamin D3) 2,000 unit capsule 2,000 units PO DAILY RF: 0 Discharge Orders: Discharge Order (Routine); Ordered 03/19/21 Ordered By: Abelardo Mccabe/Other Patient Handouts: Enoxaparin injection Admission Data Admit Date/Time: 03/15/21 17:24 Attending Provider: Abelardo Brown Admit Provider: Chepe Weiss Primary Care Provider: Amado Watson V. Other Providers: Julian Washington ; Fior Aldridge ; Belen Castro ; Stacie Carter ; Daisha Olivas ; Yaquelin Coughlin ; Annamaria Crowley ; Isaak Hinojosa ; Roberto Mercado ; Steven Olsen ; Thaddeus Espana ; Jennifer Espana ; Jayro Chandra ; Breanna Pena ; Bhavik Lora ; Allan Charles ; Xu Leone ; Edward Otoole ; Erlinda Qiu ; Ashok Torres ; Kylah Damon ; Niki Torres ; Khadar Millard ; Cecy Broussard ; Hay Cottrell ; Krystyna Qureshi ; Donna Ledesma ; Cecy Novak ; Emma Farias ; Maico Butterfield ; Miley Schmidt ; Marissa Wharton ; Maryana Clark ; Adenike Rader ; Chandler Rader V ; Lenny Dawkins ; Stacie Lobo ; Eusebio Keen ; Armando Milian ; Heather Mckeon ; Massiel Louise ; Chandler Llanos ; Maurisio Qiu ; Kristopher Steen ; Tamy Pearce ; Maryana Barrientos ; Hernán Castañeda ; Mesfin Otoole ; Iqra Conti ; Cm Vance ; Shona Shipman ; Liborio Fortune ; Madi Forde ; [facility] Other Interventions: Discharge Summary Assessment (RN) Last Done: 03/19/21 12:26 Coding Level of Care Code D/C Day Management >30 mins Diagnoses Hip fracture S72.001A Encounter type: initial encounter Fracture type: closed Laterality: right Asthma J45.909 Asthma severity: mild Asthma persistence: unspecified Asthma complication type: uncomplicated Arthritis M19.90 Depression with anxiety F41.8 Osteoporosis M81.0 Osteoporosis type: unspecified Presence of current pathological fracture: unspecified Vitamin D deficiency disease E55.9 GERD (gastroesophageal reflux disease) K21.9 DVT prophylaxis Z29.9
== END 2021-03-19 13:53 | DRG 481 ==
LOC: ED 14:09 → SUATTDRO 17:24 → 3W 17:24

== ENCOUNTER 2025-05-13 08:41 | Inpatient (IN) ==
--- NOTE | 2025-05-13 08:49 | Emergency Department Note ---
Impression & Plan Portal vein thrombosis, Fever, Urinary tract infection due to Proteus, Elevated troponin, Upper abdominal pain ED Provider Note CHIEF COMPLAINT: Fever HISTORY OF PRESENTING ILLNESS: This 80-year-old female patient presents to the emergency department via EMS with her for evaluation of a continued fever despite treatment for her UTI. The patient was seen in the ER on 05/10/2025 for fevers up to 102 F maximum. The patient's white blood cell count was mildly elevated at 11 and procalcitonin 1.02. Urinalysis questionable for infection. Chest x-ray showed possible atelectasis at the left base as well. Respiratory BioFire was negative. Lyme disease, anaplasmosis, and Babesia smears were negative with DNA PCR still pending. CT scan of the abdomen and pelvis without contrast was performed because there was significant complications with getting IV access and CT scan for the IV contrast after the first the line blew. CT scan showed no acute findings. The patient was given a dose of IV Rocephin as well as cefdinir for treatment of possible early pneumonia and UTI. The patient was discharged home for close outpatient follow up. The patient's urine cultures grew Proteus mirabilis and Streptococcus gallolyticus that was sensitive to the cefdinir. Blood cultures were preliminary negative, but final still pending. The patient saw her PCP yesterday on 05/12/2025 and the patient was to have a repeat urinalysis and culture performed in 5 days to check for resolution of the UTI. The patient was advised to start peppermint supplements to help soothe her upper abdominal discomfort. The patient presents today because she has had continued fevers and now has shaking along with vomiting which she did not have previously. The patient continues with the epigastric and right upper quadrant abdominal pain as well, but states there has been no change from her previous visit. The patient states she has had her gallbladder removed. She has been having the fevers for the past week up to 102 F at max, but her fever this morning was 101 F. She has been taking the cefdinir without improvement of her symptoms. She was mostly concerned because of the continued fevers, shaking, and new vomiting. The patient denies any chest pain or shortness of breath. She denies any sore throat or ear pain. She denies any rashes or abnormal skin lesions. REVIEW OF SYSTEMS: See HPI for pertinent positives and pertinent negatives. ALLERGIES: Percocet, Penicillins as a child, Verapamil, Codeine MEDICATIONS: See below PAST MEDICAL HISTORY: See below PHYSICAL EXAM: VITALS: Vitals are noted on the nurse's note and reviewed by myself. GENERAL: Non toxic, in no acute distress, non-diaphoretic. SKIN: Capillary refill <2 sec. EYES: PERRLA. EOMI. Conjunctivae without injection, sclerae without icterus. NOSE: Patent without discharge. MOUTH: Mucous membranes moist. Uvula midline. Airway patent. NECK: Supple without nuchal rigidity. HEART: Regular rate and rhythm without murmurs gallops or rubs. LUNGS: Clear to auscultation bilaterally without wheezes, rales or rhonchi. No retractions or accessory muscle use. ABDOMEN: Positive bowel sounds x 4. Normal tympanic percussion. Soft, tender to palpation in the epigastric and right upper quadrant. No masses or hepatosplenomegaly. Yadav sign negative. No CVA tenderness. No guarding, rigidity, or rebound tenderness. No focal RLQ or LLQ tenderness. MUSCULOSKELETAL: No gross musculoskeletal defects. NEURO: Patient was alert and oriented. No focal neurological deficits. DIFFERENTIAL DIAGNOSIS: Differential diagnosis includes Influenza, RSV, COVID, viral syndrome, otitis media, otitis externa, pharyngitis, strep throat, pneumonia, meningitis, urinary tract infection, cellulitis, abscess, sepsis, bacteremia, hepatitis, pancreatitis, cholecystitis, cholelithiasis, appendicitis, kidney stone, pyelonephritis, UTI, gastritis, gastroenteritis, mesenteric adenitis, obstruction, constipation, hernia, abdominal abscess, perforation, diverticulitis, IBD, ischemic colitis, abdominal aortic aneurysm, , ectopic , ovarian cyst, ovarian torsion, acute salpingitis, or others. ED COURSE AND MEDICAL DECISION MAKING: HISTORY FROM INDEPENDENT HISTORIAN: Additional history obtained from the patient's . MEDICATIONS GIVEN: A total of 1 L normal saline solution bolus. Tylenol 1000 mg IV. Zofran 4 mg IV. MONITOR: Continuous nurse monitoring: Order was placed for continuous nurse monitoring. Patient was placed on the nurse monitoring and continuous pulse ox. Patient was noted to be in normal sinus rhythm at an initial rate of 80 bpm per my interpretation. EKG: EKG was interpreted by myself and Dr. Vaughan as normal sinus rhythm at 75 bpm with T wave abnormalities, but no significant change from her previous EKG and no evidence for STEMI. INTERPRETATION OF LABS: I interpreted the labs with full lab results as below in the lab section of this note. Laboratory results pertinent to the emergent complaint are discussed in the MDM section below. The patient was advised to follow up with their PCP and/or specialist(s) for further outpatient monitoring and management of any abnormal results. INTERPRETATION OF IMAGING: Imaging studies were interpreted by myself and read by radiology as per the imaging section of this note. The patient was advised to follow up with their PCP and/or specialist(s) for further outpatient management of any non-emergent abnormal findings. CTA of the chest with IV contrast showed no evidence of PE, pneumonia, or other acute abnormalities. CT scan of the abdomen pelvis with IV contrast shows a left portal vein thrombus/thrombophlebitis. No other acute abnormalities. EXTERNAL RECORDS REVIEWED: I reviewed the patient's previous ER visit as well as her outpatient PCP visit from yesterday as summarized above. CONSULTATIONS: On-call hospitalist MDM SUMMARY: I examined the patient. The patient was seen in the ER on 05/10/2025 and treated with IV Rocephin and cefdinir for possible early pneumonia versus UTI as a cause of her fevers. The patient's urine culture grew Proteus mirabilis and Streptococcus gallolyticus that was sensitive to the cefdinir. The patient followed up with her PCP yesterday as well. However, the patient states that she continues with fevers as high as 101 F this morning and then she developed shaking and vomiting this morning. The patient became concerned and came to the ER via ambulance. An IV lock was placed and labs were drawn. The patient was initially given 500 mL normal saline solution bolus, but was given an additional 500 mL once her urinalysis came back with 3+ ketones. The patient was given Tylenol 1000 mg IV and Zofran 4 mg IV for her pain and nausea. White blood cell count now normal at 10.5 compared to 11.02 on the . Hemoglobin is slightly low at 11.5 compared to 12 on the . Platelet count is normal at 219. Coags normal. Potassium slightly low at 3.4, bicarb low at 19, anion gap elevated 12, and glucose 110, but CMP otherwise without significant abnormalities. Magnesium normal. Lipase normal. Lactate normal. Procalcitonin improved to 0.55 from 1.02 on the . High-sensitivity troponin elevated at 47.8, but EKG without evidence for STEMI. The patient denies any chest pain. Repeat high-sensitivity troponin elevated at 116.1. This may be secondary to ischemic demand, but will need to be evaluated further. Urinalysis with 1+ protein and 3+ ketones, but otherwise does not appear infected at this time. Blood cultures are pending. Due to the patient's persisting fever and upper abdominal pain with new onset vomiting and elevated troponin, additional workup was performed. The patient's previous CT scan was without contrast because she had complications getting the IV placed in CT per patient. The patient was agreeable to CT scans with contrast today. CTA of the chest with IV contrast showed no evidence of PE, pneumonia, or other acute abnormalities. CT scan of the abdomen pelvis with IV contrast shows a left portal vein thrombus/thrombophlebitis. No other acute abnormalities. I had a meaningful discussion about this patient with Dr. Vaughan who agrees with my assessment and the treatment plan. The patient will require admission due to her portal vein thrombus/thrombophlebitis which is likely the cause of her symptoms. Her troponin is also elevated and this will need to be worked up further to determine if it is secondary to the portal vein thrombus or other cardiac etiology. Will defer anticoagulation and antibiotic choice to the on- call hospitalist. I spoke with the on-call hospitalist who agreed to admit the patient for further evaluation and treatment. Please refer to their dictation for further details. The patient's care was transferred in stable condition. DIAGNOSIS: Portal vein thrombus/thrombophlebitis Fever Upper abdominal pain Elevated troponin Previous UTI Past Med/Surg History Problem List (Updated 05/13/25 @ 13:00 by Charito Bobby PA-C) Upper abdominal pain (Acute) Elevated troponin (Acute) Portal vein thrombosis (Acute) Urinary tract infection due to Proteus (Acute) Abdominal pain, epigastric (Acute) Fever (Acute) Pneumonia (Acute) COPD (chronic obstructive pulmonary disease) Encounter for health maintenance examination Skin lesions Osteoporosis Inflamed seborrheic keratosis Anemia GERD (gastroesophageal reflux disease) Arthritis (Acute) Asthma (Acute) Degeneration of cervical intervertebral disc (Acute) Depression with anxiety (Acute) Insomnia (Acute) Migraine (Acute) Vitamin D deficiency disease (Acute) Medical History Neoplasm of skin of elbow Screening for breast cancer Broken femur (~03/28/22) Fall Closed hip fracture (~03/15/21) Acute right hip pain Hip fracture (~03/15/21) Microscopic hematuria History of basal cell carcinoma History of squamous cell carcinoma Lesion of plantar nerve, right lower limb Shortness of breath Hx of migraine with aura Hx of endometriosis Hx of complications due to general anesthesia Hx of basal cell carcinoma Hx of hematuria Surgical History History of tubal ligation Hx of tonsillectomy H/O colonoscopy Hx of cholecystectomy Family History Mother Cancer Grandmother (Maternal) Stroke Grandfather (Paternal) Heart disease Brother Prostate cancer Sister Breast cancer Other Bladder cancer Gastrointestinal bleeding Hypertension Kidney stones Multiple sclerosis Social History Smoking Status: Former smoker Tobacco Type: Cigarettes Age Started Using Tobacco: 22; Age Quit Using Tobacco: 29; packs per day: 1; Smoking End Date: Quit 50+ yrs ago; Hx Alcohol Use: Yes Alcohol type: beer Hx Substance Use: No Preferred Language: Lithuanian Communication Ability: Effective 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 Beliefs That Will Affect Care: None marital status: Current Living Situation: Spouse current occupational status: retired Other Information That Helps Us Care for You: No Feels Safe at Home: Yes Safety Concerns: Feels Safe At This Time Seatbelt Use: always Sunscreen Use: Yes Assistive Devices: None Allergies Allergies Allergy/AdvReac Type Severity Reaction Status Date / Time acetaminophen [From Percocet] AdvReac Verified 05/12/25 14:01 oxycodone [From Percocet] AdvReac Verified 05/12/25 14:01 Penicillins AdvReac Verified 05/12/25 14:01 verapamil AdvReac Verified 05/08/25 13:31 Codeine Derivatives Allergy Mild Uncoded 05/12/25 14:01 Home Meds Home Medications Medication Instructions Recorded Confirmed calcium carbonate 500 mg PO BID 04/02/21 05/13/25 cholecalciferol (vitamin D3) 50 2,000 unit PO DAILY 04/09/22 05/13/25 mcg (2,000 unit) capsule escitalopram oxalate 10 mg tablet 20 mg PO DAILY 01/22/23 05/13/25 famotidine 40 mg tablet 40 mg PO DAILY 04/03/25 05/13/25 Gaviscon 1 dose PO DIRECTED 05/13/25 05/13/25 mirtazapine 15 mg tablet 15 mg PO DAILY PRN Other 05/13/25 05/13/25 Previous Rx's Medication Instructions Recorded albuterol sulfate 90 mcg/actuation 2 inh inhalation Q4H PRN shortness 02/14/25 aerosol inhaler of breath or wheezing #8.5 grams fluticasone furoate 100 1 inh inhalation DAILY #60 ea 03/17/25 mcg-vilanterol 25 mcg/dose inhalation powder (Breo Ellipta) pantoprazole 40 mg tablet,delayed 40 mg PO DAILY #30 tabs 05/08/25 release cefdinir 300 mg capsule 300 mg PO Q12H 6 days #12 caps 05/10/25 sucralfate 1 gram tablet (Carafate) 1 g PO BID 4 weeks #56 tabs 05/10/25 peppermint oil 1 cap PO BID #60 caps 05/12/25 Results & Data (ED) Vital Signs Vital Signs - 24 hr 05/13/25 08:55 05/13/25 08:55 05/13/25 08:55 Temperature 37.6 C Temperature Source Oral Pulse Rate 83 81 Pulse Rate [Apical] 81 Respiratory Rate 16 16 Respiratory Effort / Characteristics Non-Labored Spontaneous Blood Pressure 125/67 Blood Pressure [Right Arm] 114/59 L Blood Pressure Mean 86 Blood Pressure Mean [Right Arm] 77 Blood Pressure Position Lying Blood Pressure Position [Right Arm] Lying Pulse Oximetry 97 97 Oxygen Delivery Method Room Air Room Air Sepsis Recent Fever Within 48 Hours Yes Sepsis New/Unexplained Change in Mental Status No Sepsis Action Taken by Nursing No Action Required 05/13/25 09:06 05/13/25 09:49 05/13/25 11:00 Temperature 37.0 C Temperature Source Oral Pulse Rate 81 Pulse Rate [Apical] 73 68 Respiratory Rate 16 16 16 Respiratory Effort / Characteristics Non-Labored Spontaneous Blood Pressure Blood Pressure [Right Arm] 110/56 L 129/65 Blood Pressure Mean Blood Pressure Mean [Right Arm] 74 86 Blood Pressure Position Blood Pressure Position [Right Arm] Pulse Oximetry 97 96 97 Oxygen Delivery Method Room Air Room Air Sepsis Recent Fever Within 48 Hours Sepsis New/Unexplained Change in Mental Status Sepsis Action Taken by Nursing Laboratory Data 05/13/25 08:50 05/13/25 08:50 Lab Results 05/13/25 05/13/25 Range/Units 08:50 10:45 WBC 10.25 (4.8-10.8) K/ul RBC 3.47 L (4.20-5.40) M/uL Hgb 11.5 L (12.0-16.0) g/dl Hct 33.2 L (37.0-47.0) % MCV 95.7 (80.0-100.0) fL MCH 33.1 (25.0-34.0) pg MCHC 34.6 (32.0-36.0) g/dL RDW Std Deviation 44.1 (36.4-46.3) fL RDW Coeff of Rod 12.8 (11.5-14.5) % Plt Count 219 (130-400) K/uL MPV 10.0 (9.4-12.4) fL Immature Gran % (Auto) 0.5 % Neut % (Auto) 80.9 % Lymph % (Auto) 12.8 % [place] % (Auto) 4.3 % Eos % (Auto) 1.3 % Baso % (Auto) 0.2 % Neut # (Auto) 8.30 H (1.40-6.50) K/uL Lymph # (Auto) 1.31 (1.20-3.40) K/uL [place] # (Auto) 0.44 (0.11-0.59) K/uL Eos # (Auto) 0.13 (0.00-0.50) K/uL Baso # (Auto) 0.02 (0.00-0.20) K/uL Immature Gran # (Auto) 0.05 (0.01-0.20) K/uL PT 10.7 (9.0-12.0) Seconds INR 1.0 (0.9-1.1) APTT 25 (21-31) Seconds PTT Ratio 0.9 Sodium 136 (136-145) mmol/L Potassium 3.4 L (3.5-5.1) mmol/L Chloride 105 (98-107) mmol/L Carbon Dioxide 19 L (21-32) mmol/L Anion Gap 12 H (3-11) BUN 14 (6-23) mg/dl Creatinine 0.84 (0.6-1.2) mg/dl Est Cr Clr Drug Dosing 52.5 ml/min eGFR 71.08 BUN/Creatinine Ratio 16.7 (10-20) Glucose 110 H (70-99(Fasting)) mg/dl Lactate 1.4 (0.4-2.0) mmol/L Calcium 8.7 (8.6-10.3) mg/dl Magnesium 1.8 (1.7-2.4) mg/dl Total Bilirubin 0.6 (0.2-1.0) mg/dl AST 17 (13-39) U/L ALT 15 (7-52) U/L Alkaline Phosphatase 82 (34-104) U/L Troponin I High Sens 47.8 H 116.1 H* D (0-14) pg/ml Total Protein 6.1 (6.0-8.3) gm/dl Albumin 3.3 L (3.4-5.0) gm/dl Globulin 2.8 (2.5-4.0) gm/dl Albumin/Globulin Ratio 1.2 (0.9-2) Lipase 24 (11-82) U/L Procalcitonin 0.55 H (0-0.5) ng/ml Administered Medications Discontinued Medications Acetaminophen (Ofirmev) 1,000 mg in 100 mls @ 400 mls/hr IV NOW STA Stop: 05/13/25 09:10 Last Infusion: 05/13/25 09:50 Dose: Infused Documented By: Admin: 05/13/25 09:15 Dose: 400 mls/hr Documented By: LM Sodium Chloride (Nss) 500 mls @ 999 mls/hr IV .Q31M ONE Stop: 05/13/25 09:26 Last Infusion: 05/13/25 10:19 Dose: Infused Documented By: Admin: 05/13/25 09:14 Dose: 999 mls/hr Documented By: LM Sodium Chloride (Nss) 500 mls @ 999 mls/hr IV .Q31M ONE Stop: 05/13/25 12:00 Last Infusion: 05/13/25 12:15 Dose: Infused Documented By: Admin: 05/13/25 11:35 Dose: 999 mls/hr Documented By: CHANTAL Ioversol (Optiray 320 125ml) 115 ml IV ONCE ONE Stop: 05/13/25 10:32 Last Admin: 05/13/25 10:32 Dose: 115 ml Documented By: LINDA Ondansetron HCl (Ondansetron Inj 2 Mg/Ml 2 Ml Vial) 4 mg IV NOW STA Stop: 05/13/25 08:57 Last Admin: 05/13/25 09:17 Dose: Not Given Documented By: LM Imaging Data Radiologist's Impression: Chest X-Ray 05/13/25 08:56 XR chest 1V portable CLINICAL HISTORY: fever, cough - eval pneumonia COMPARISON STUDY: 05/10/2025 FINDINGS: Heart size and pulmonary vasculature are normal. Stable small hiatal hernia. There is no consolidation or pleural effusion. No pneumothorax. Stable old left-sided rib fractures. IMPRESSION: No pneumonia seen. ACT 112: Negative or not required by law. Electronically signed by: Maico Alcocer M.D. 05/13/2025 9:21 AM Abdomen/Pelvis CT 05/13/25 10:[address] WITH IV CONTRAST CT DOSE: 1504 HISTORY: upper abdominal pain, fever, elev trop TECHNIQUE: Multiaxial CT images of the abdomen and pelvis were performed following the IV administration of 115 cc of Optiray, A dose lowering technique was utilized adhering to the principles of ALARA. COMPARISON STUDY: 05/09/2025 FINDINGS: ABDOMEN: There is nonopacification, thickened wall, and inflammation at the left portal vein and smaller branches consistent with left portal vein thrombus/thrombophlebitis. Right and main portal vein are widely patent with no evidence of thrombus. There are a few stable tiny liver cysts. Gallbladder is nonvisualized. Spleen, pancreas, and adrenal glands are unremarkable. Kidneys show no hydronephrosis. There are scattered atherosclerotic calcifications. No abdominal aortic aneurysm. Stable [id number] hiatal hernia. Pelvis: 12 cm oval cystic mass in the low pelvis is stable, likely adnexal cyst. Urinary bladder is decompressed. There is sigmoid diverticulosis. No acute diverticulitis. No bowel inflammation or obstruction. No free fluid, free air, or abscess. No enlarged adenopathy. Osseous structures: Right femoral gamma nail again seen. No acute osseous findings seen. IMPRESSION: 1. Left portal vein thrombus/thrombophlebitis. 2. No other acute findings seen. Otherwise as described. ACT 112: Negative or not required by law. The above report was generated using voice recognition software. It may contain grammatical, syntax or spelling errors. Electronically signed by: Maico Alcocer M.D. 05/13/2025 11:05 AM Chest CTA 05/13/25 10:07 CT angio chest PE protocol CT DOSE: 1503.75 mGy.cm HISTORY: PE. TECHNIQUE: Multiple CTA images of the chest were obtained after the intravenous administration of 115 ml Optiray. Coronal and sagittal MIPS were obtained from the axial data set and were submitted for review. All measurements were obtained according to NASCET criteria. A dose lowering technique was utilized adhering to the principles of ALARA. COMPARISON STUDY: None FINDINGS: There is a moderate hiatal hernia. There is mild atelectasis or scarring at the left lung base. There is no pulmonary consolidation or pleural effusion. No pneumothorax. There are a few scattered small pulmonary nodules, largest a subpleural nodule adjacent to the diaphragm at the left lung base measuring 5 mm series 4 image 48. There is no thoracic aortic dissection or aneurysm. No pulmonary embolism. No pericardial effusion. There is a possible 1.5 cm nodule at the left thyroid lobe. No enlarged adenopathy seen. There are a few old healed left-sided rib fractures. No acute osseous finding seen. IMPRESSION: No pulmonary embolism seen. ACT 112: Negative or not required by law. The above report was generated using voice recognition software. It may contain grammatical, syntax or spelling errors. Electronically signed by: Maico Alcocer M.D. 05/13/2025 10:54 AM Discharge Plan Visit Data Chief Complaint: Urinary Symptoms Stated Complaint: UTI SX ED Provider: Vernon Vaughan ED Midlevel Provider: Charito Bobby Discharge Problem: Portal vein thrombosis, Fever, Urinary tract infection due to Proteus, Elevated troponin, Upper abdominal pain Patient Disposition: Admitted As Inpatient Condition: Fair Discharge Instructions Interventions: ED Discharge Assessment Last Done: 05/13/25 13:02 Discharge Problem: Fever Qualifiers: Fever type: unspecified Qualified Code(s): R50.9 - Fever, unspecified
[2025-05-13] MEDS: SODIUM CHLORIDE 0.9% 500 ML IV ONE ×2 (09:14→11:35)
[2025-05-13] MEDS: ACETAMINOPHEN 1,000 MG/100 ML VIAL IV STA (09:15)
[2025-05-13] MEDS: ONDANSETRON INJ 2 MG/ML 2 ML VIAL IV STA ×2 (09:17→20:33)
[2025-05-13 09:18] LABS: Basophils # (auto) 0.02 K/uL (0.00-0.20); Basophils % (auto) 0.2 %; Eosinophils # (auto) 0.13 K/uL (0.00-0.50); Eosinophils % (auto) 1.3 %; Hematocrit (blood only) 33.2 % (37.0-47.0); Hemoglobin 11.5 g/dl (12.0-16.0); Immature Granulocytes # (auto) 0.05 K/uL (0.01-0.20); Immature Granulocytes % (auto) 0.5 %; Lymphocytes # (auto) 1.31 K/uL (1.20-3.40); Lymphocytes % (auto) 12.8 %; Mean Corpuscular Hemoglobin 33.1 pg (25.0-34.0); Mean Corpuscular Hgb Conc 34.6 g/dL (32.0-36.0); Mean Corpuscular Volume 95.7 fL (80.0-100.0); Monocytes # (auto) 0.44 K/uL (0.11-0.59); Monocytes % (auto) 4.3 %; Neutrophils % (auto) 80.9 %; Platelet Count 219 K/uL (130-400); RDW Coefficient of Variation 12.8 % (11.5-14.5); RDW Standard Deviation 44.1 fL (36.4-46.3); Red Blood Count 3.47 M/uL (4.20-5.40); White Blood Count 10.25 K/ul (4.8-10.8)
--- NOTE | 2025-05-13 09:23 | XRay Report ---
XR chest 1V portable CLINICAL HISTORY: fever, cough - eval pneumonia COMPARISON STUDY: 05/10/2025 FINDINGS: Heart size and pulmonary vasculature are normal. Stable small hiatal hernia. There is no co nsolidation or pleural effusion. No pneumothorax. Stable old left-sided rib fractures. IMPRESSION: No pneumonia seen. ACT 112: Negative or not required by law. Electronically signed by: Maico Alcocer M.D. 05/13/2025 9:21 AM
[2025-05-13 09:51] LABS: Albumin Level 3.3 gm/dl (3.4-5.0); Bilirubin,Total 0.6 mg/dl (0.2-1.0); Calcium 8.7 mg/dl (8.6-10.3); Magnesium 1.8 mg/dl (1.7-2.4); Potassium 3.4 mmol/L (3.5-5.1)
[2025-05-13 09:53] LABS: Troponin I High Sensitivity 47.8 pg/ml (0-14)
[2025-05-13 09:57] LABS: Albumin Globulin Ratio 1.2 (0.9-2); BUN Creatinine Ratio 16.7 (10-20); Creatinine Clr Calc Pharmacy 52.5 ml/min; Globulin 2.8 gm/dl (2.5-4.0); Total Protein 6.1 gm/dl (6.0-8.3)
[2025-05-13 10:28] LABS: Partial Thromboplastin Ratio 0.9; Partial Thromboplastin Time 25 Seconds (21-31); Prothrombin Time 10.7 Seconds (9.0-12.0)
[2025-05-13] MEDS: OPTIRAY 320 125ml IV ONE (10:32)
--- NOTE | 2025-05-13 10:56 | CT Scan Report ---
CT angio chest PE protocol CT DOSE: 1503.75 mGy.cm HISTORY: PE. TECHNIQUE: Multiple CTA images of the chest were obtained after the intravenous administration of 115 ml Optiray. Coronal and sagittal MIPS were obtained from the axial data set and were submitted for review. All measurements were obtained according to NASCET criteria. A dose lowering technique was u tilized adhering to the principles of ALARA. COMPARISON STUDY: None FINDINGS: There is a moderate hiatal hernia. There is mild atelectasis or scarring at the left lung b ase. There is no pulmonary consolidation or pleural effusion. No pneumothorax. There are a few scatte red small pulmonary nodules, largest a subpleural nodule adjacent to the diaphragm at the left lung b ase measuring 5 mm series 4 image 48. There is no thoracic aortic dissection or aneurysm. No pulmonar y embolism. No pericardial effusion. There is a possible 1.5 cm nodule at the left thyroid lobe. No e nlarged adenopathy seen. There are a few old healed left-sided rib fractures. No acute osseous findin g seen. IMPRESSION: No pulmonary embolism seen. ACT 112: Negative or not required by law. The above report was generated using voice recognition software. It may contain grammatical, syntax o r spelling errors. Electronically signed by: Maico Alcocer M.D. 05/13/2025 10:54 AM
[2025-05-13 11:04] LABS: Appearance Urine Clear (Clear); Bacteria Urine Automated None Seen (None Seen); Bilirubin Urine Negative (Negative); Blood Urine Negative (Negative); Color Urine Yellow; Glucose Urine UA Negative (Negative); Ketones Urine 3+ (Negative); Leukocyte Esterase Urine Negative (Negative); Nitrite Urine Negative (Negative); Protein Urine 1+ (Negative); Specific Gravity Urine 1.028 (1.000-1.030); Urobilinogen Urine Negative (Negative); WBC Urine Automated 0-5 /hpf (0-5)
--- NOTE | 2025-05-13 11:07 | CT Scan Report ---
ABDOMEN AND PELVIS CT WITH IV CONTRAST CT DOSE: 1504 HISTORY: upper abdominal pain, fever, elev trop TECHNIQUE: Multiaxial CT images of the abdomen and pelvis were performed following the IV administrat ion of 115 cc of Optiray, A dose lowering technique was utilized adhering to the principles of ALARA . COMPARISON STUDY: 05/09/2025 FINDINGS: ABDOMEN: There is nonopacification, thickened wall, and inflammation at the left portal vein and smal ler branches consistent with left portal vein thrombus/thrombophlebitis. Right and main portal vein a re widely patent with no evidence of thrombus. There are a few stable tiny liver cysts. Gallbladder i s nonvisualized. Spleen, pancreas, and adrenal glands are unremarkable. Kidneys show no hydronephrosi s. There are scattered atherosclerotic calcifications. No abdominal aortic aneurysm. Stable small-to- moderate hiatal hernia. Pelvis: 12 cm oval cystic mass in the low pelvis is stable, likely adnexal cyst. Urinary bladder is d ecompressed. There is sigmoid diverticulosis. No acute diverticulitis. No bowel inflammation or obstr uction. No free fluid, free air, or abscess. No enlarged adenopathy. Osseous structures: Right femoral gamma nail again seen. No acute osseous findings seen. IMPRESSION: 1. Left portal vein thrombus/thrombophlebitis. 2. No other acute findings seen. Otherwise as described. ACT 112: Negative or not required by law. The above report was generated using voice recognition software. It may contain grammatical, syntax o r spelling errors. Electronically signed by: Maico Alcocer M.D. 05/13/2025 11:05 AM
[2025-05-13] MEDS ORDERED: ALBUTEROL HFA 8 GM INHALER INH PRN (11:47)
[2025-05-13] MEDS ORDERED: ENOXAPARIN 1 MG/KG SQ SCH (12:00)
--- NOTE | 2025-05-13 12:10 | History & Physical Report ---
Date of Service May 13, 2025 Assessment & Plan (1) Portal vein thrombosis: Plan: -CT a/p showing left portal vein thrombus/thrombophlebitis -started lovenox 1mg/kg Q12 -emperic coverage with rocephin/flagyl -f/u blood cultures -GI consulted (2) Fever: Plan: -recent UTI treated with cefdinir -UA negative -on rocephin -f/u urine C&S/blood cultures (3) Elevated troponin: Plan: -troponin 116 -pt with epigastric pain, likely 2nd to portal vein throbosis, however must r/o cardiogenic etiology -EKG NSR no ST-changes -echo pending -cardiology consulted (4) COPD (chronic obstructive pulmonary disease): Plan: -con't fluticasone furoate -albuterol (5) GERD (gastroesophageal reflux disease): Plan: -protonix History of Present Illness Chief Complaint: Fever, abdominal pain Primary Care Provider: Amado Watson MD Pt is a 80 y/o female with pmh of COPD, GERD, recent admission to ER 05/10 and treatment of UTI with cefdinir who presents with fever of 102 abdominal pain and nausea/vomiting over the past few days. In the ER patients labs showed NL WBC, with elevated troponin of 116, UA negative for UTI. Pt denies any chest pain or SOB. EKG showing NSR with on ST-T changes. CTA chest negative for PE, however CT a/p showing left protal vein thrombus/thrombophlebitis with no other acute findings. Pt placed on lovenox Q12 and started on rocephin/flagyl. Allergies Allergy/AdvReac Type Severity Reaction Status Date / Time acetaminophen [From Percocet] AdvReac Verified 05/12/25 14:01 oxycodone [From Percocet] AdvReac Verified 05/12/25 14:01 Penicillins AdvReac Verified 05/12/25 14:01 verapamil AdvReac Verified 05/08/25 13:31 Codeine Derivatives Allergy Mild Uncoded 05/12/25 14:01 Home Medications Medication Instructions Recorded Confirmed Type calcium carbonate 500 mg PO BID 04/02/21 05/13/25 History cholecalciferol (vitamin D3) 50 2,000 unit PO DAILY 04/09/22 05/13/25 History mcg (2,000 unit) capsule escitalopram oxalate 10 mg tablet 20 mg PO DAILY 01/22/23 05/13/25 History albuterol sulfate 90 mcg/actuation 2 inh inhalation Q4H PRN shortness 02/14/25 05/13/25 Rx aerosol inhaler of breath or wheezing #8.5 grams fluticasone furoate 100 1 inh inhalation DAILY #60 ea 03/17/25 05/13/25 Rx mcg-vilanterol 25 mcg/dose inhalation powder (Breo Ellipta) famotidine 40 mg tablet 40 mg PO DAILY 04/03/25 05/13/25 History pantoprazole 40 mg tablet,delayed 40 mg PO DAILY #30 tabs 05/08/25 05/13/25 Rx release cefdinir 300 mg capsule 300 mg PO Q12H 6 days #12 caps 05/10/25 05/13/25 Rx sucralfate 1 gram tablet (Carafate) 1 g PO BID 4 weeks #56 tabs 05/10/25 05/13/25 Rx peppermint oil 1 cap PO BID #60 caps 05/12/25 05/13/25 Rx Gaviscon 1 dose PO DIRECTED 05/13/25 05/13/25 History mirtazapine 15 mg tablet 15 mg PO DAILY PRN Other 05/13/25 05/13/25 History Past Med/Surg History Problem List (Updated 05/13/25 @ 12:26 by Francois Ruth MD) Elevated troponin Portal vein thrombosis Urinary tract infection due to Proteus Abdominal pain, epigastric (Acute) Fever (Acute) Pneumonia (Acute) COPD (chronic obstructive pulmonary disease) Encounter for health maintenance examination Skin lesions Osteoporosis Inflamed seborrheic keratosis Anemia GERD (gastroesophageal reflux disease) Arthritis (Acute) Asthma (Acute) Degeneration of cervical intervertebral disc (Acute) Depression with anxiety (Acute) Insomnia (Acute) Migraine (Acute) Vitamin D deficiency disease (Acute) Medical History Neoplasm of skin of elbow Screening for breast cancer Broken femur (~03/28/22) Fall Closed hip fracture (~03/15/21) Acute right hip pain Hip fracture (~03/15/21) Microscopic hematuria History of basal cell carcinoma History of squamous cell carcinoma Lesion of plantar nerve, right lower limb Shortness of breath Hx of migraine with aura Hx of endometriosis Hx of complications due to general anesthesia Hx of basal cell carcinoma Hx of hematuria Surgical History History of tubal ligation Hx of tonsillectomy H/O colonoscopy Hx of cholecystectomy Family History Mother Cancer Grandmother (Maternal) Stroke Grandfather (Paternal) Heart disease Brother Prostate cancer Sister Breast cancer Other Bladder cancer Gastrointestinal bleeding Hypertension Kidney stones Multiple sclerosis Social History Smoking Status: Never smoker Tobacco Type: Cigarettes Age Started Using Tobacco: 22; Age Quit Using Tobacco: 29; packs per day: 1; Hx Alcohol Use: Yes Alcohol type: beer Hx Substance Use: No Preferred Language: Samoan Communication Ability: Effective Beliefs That Will Affect Care: None marital status: Current Living Situation: Spouse current occupational status: retired Feels Safe at Home: Yes Seatbelt Use: always Sunscreen Use: Yes Assistive Devices: Walker Review of Systems Review of Systems: CONST: +fever HENT: Negative for neck pain/stiffness, headache, congestion, sore throat, swelling. EYES: Negative for discharge/pain or vision changes. RESP: Negative for cough/hemoptysis and shortness of breath. CV: Negative chest pain, difficulty breathing, palpitations. ABD: + nausea, vomiting, abdominal pain. : Negative increase frequency, dysuria, blood in urine or stool. MUSC: Negative for muscle aches, edema. SKIN: Negative rash, lesions/sores. NEURO: Negative headache, dizziness, weakness. Physical Exam Physical Exam: CONST: Negative for fever, body aches and chills. HENT: Negative for neck pain/stiffness, headache, congestion, sore throat, swelling. EYES: Negative for discharge/pain or vision changes. RESP: Negative for cough/hemoptysis and shortness of breath. CV: Negative chest pain, difficulty breathing, palpitations. ABD: Negative pain, nausea, vomiting. : Negative increase frequency, dysuria, blood in urine or stool. MUSC: Negative for muscle aches, edema. SKIN: Negative rash, lesions/sores. NEURO: Negative headache, dizziness, weakness. Results & Data Results & Data Vital Signs (Past 12 Hours) Vital Signs Temp Pulse Pulse Resp BP BP Pulse Ox 05/13/25 11:00 68 16 129/65 97 05/13/25 09:49 37.0 C 73 16 110/56 L 96 05/13/25 09:06 81 16 97 05/13/25 08:55 81 16 114/59 L 97 05/13/25 08:55 37.6 C 81 16 125/67 97 05/13/25 08:55 83 O2 Del Method 05/13/25 11:00 05/13/25 09:49 Room Air 05/13/25 09:06 Room Air 05/13/25 08:55 Room Air 05/13/25 08:55 Room Air 05/13/25 08:55 PG Care Time/CCT Total # of Minutes Spent Total Time Spent with Patient: Total time spent is greater than 50% in coordination of care (as documented) at patient's floor/unit and/or counseling patient: Coding Level of Care Code 83429 INT INP/OBS CARE 2MIN Diagnoses Portal vein thrombosis I81 Fever R50.9 Fever type: unspecified Elevated troponin R79.89 COPD (chronic obstructive pulmonary disease) J44.9 GERD (gastroesophageal reflux disease) K21.9 (2) Fever Fever type: unspecified Qualified Code(s): R50.9 - Fever, unspecified
[2025-05-13] MEDS ORDERED: Nursing to Pharmacy Communication SCH ×2 (14:00→14:30)
[2025-05-13] MEDS: metroNIDAZOLE 500 MG/100 ML BAG IV SCH (14:16)
[2025-05-13] MEDS: ENOXAPARIN 80 MG/0.8 ML SYR SQ SCH (14:17)
[2025-05-13] MEDS: cefTRIAXone SODIUM 2,000 MG/50 ML BAG IV SCH (14:18)
[2025-05-13] MEDS: SODIUM CHLORIDE 0.9% 1,000 ML IV SCH (14:18)
[2025-05-13] MEDS: MIRTAZAPINE TAB 15 MG TAB PO SCH ×2 (14:27→21:10)
[2025-05-13] MEDS: PANTOprazole 40 MG TAB PO ONE (15:54)
[2025-05-13] MEDS: ONDANSETRON INJ 2 MG/ML 2 ML VIAL IV PRN (15:54)
[2025-05-13] MEDS: FLUTICASONE/VILANTEROL 100/25MCG 14 PUFFS/INHALER INH ONE (16:04)
[2025-05-13] MEDS: ACETAMINOPHEN 325 MG TAB PO PRN (19:36)
[2025-05-13] MEDS: PROCHLORPERAZINE 5 MG in SYRINGE 4 ML IV ONE (20:34)
[2025-05-13] MEDS: SUCRALFATE 1 GM TAB PO SCH (21:10)
[2025-05-13] MEDS: CALCIUM CARBONATE 1250MG TAB PO SCH (21:44)
[2025-05-14 08:31] LABS: Hemoglobin 10.2 g/dl (12.0-16.0); Mean Corpuscular Hemoglobin 32.4 pg (25.0-34.0); Mean Corpuscular Hgb Conc 32.9 g/dL (32.0-36.0); Mean Corpuscular Volume 98.4 fL (80.0-100.0); Mean Platelet Volume 9.9 fL (9.4-12.4); Platelet Count 196 K/uL (130-400); RDW Coefficient of Variation 13.2 % (11.5-14.5); RDW Standard Deviation 47.2 fL (36.4-46.3); Red Blood Count 3.15 M/uL (4.20-5.40); White Blood Count 8.55 K/ul (4.8-10.8)
[2025-05-14] MEDS: ESCITALOPRAM OXALATE 20 MG TAB PO SCH (08:34)
[2025-05-14] MEDS: CHOLECALCIFEROL 25 MCG (1000 UNITS) TAB PO SCH (08:34)
[2025-05-14] MEDS: PANTOprazole 40 MG TAB PO SCH (08:34)
[2025-05-14] MEDS: FLUTICASONE/VILANTEROL 100/25MCG 14 PUFFS/INHALER INH SCH (08:35)
[2025-05-14] MEDS: FAMOTIDINE 40 MG TABLET PO SCH (08:35)
[2025-05-14 08:48] LABS: BUN Creatinine Ratio 9.1 (10-20); Calcium 8.1 mg/dl (8.6-10.3); Creatinine Clr Calc Pharmacy 50.7 ml/min; Potassium 3.9 mmol/L (3.5-5.1)
[2025-05-14 08:57] LABS: Troponin I High Sensitivity 86.3 pg/ml (0-14)
--- NOTE | 2025-05-14 09:38 | Gastrointestinal Consultation ---
Date of Consultation May 14, 2025 Assessment & Plan (1) Portal vein thrombosis: Margot woman with portal vein thrombosis/thrombophlebitis. This is typically seen after or along with another intraabdominal infection although she has no evidence of that on CT. I don't really see a way to tie this to her adnexal cyst. She has no evidence of intraabdominal malignancy either. I agree with treating with antibiotics and anticoagulants. Treatment of this with anticoagulants is not proven to be of as much benefit as antibiotics but it is not unreasonable to do. Since it involves only one branch of the portal vein hopefully she wont develop issues with portal hypertension. I will follow with you. History of Present Illness Reason for Consultation: portal vein thrombosis/thrombophlebitis Attending Physician: Francois Ruth MD History of Present Illness Pleasant 80 year old female who has been battling fever for the last week or so. She saw Luz Guzman in the [facility] GI office on 05/10 for pain and fever along with low blood pressure. She was sent to ED for treatment and was treated for "pneumonia". She continued to arvizu fever and came in yesterday with chills and fever. Through this she has not had much in the way of abdominal pain although she has felt sore in her right upper abdomen. repeat CT on admit shows evidence of left portal vein thrombosis and evidence of thrombophlebitis. There is no evidence of other intraabdominal infection. She does have a large adnexal cyst that she is going to see [facility] for. She has kept up to date with her colonoscopies and also has had an EGD in the not too distant past. Currently she feels well. Allergies Allergy/AdvReac Type Severity Reaction Status Date / Time oxycodone [From Percocet] AdvReac Unknown Verified 05/13/25 15:34 Penicillins AdvReac Unknown Verified 05/13/25 15:34 verapamil AdvReac Unknown Verified 05/13/25 15:34 Codeine Derivatives Allergy Mild Unknown Uncoded 05/13/25 15:34 Home Medications Medication Instructions Recorded Confirmed Type calcium carbonate 500 mg PO BID 04/02/21 05/13/25 History cholecalciferol (vitamin D3) 50 2,000 unit PO DAILY 04/09/22 05/13/25 History mcg (2,000 unit) capsule escitalopram oxalate 10 mg tablet 20 mg PO DAILY 01/22/23 05/13/25 History albuterol sulfate 90 mcg/actuation 2 inh inhalation Q4H PRN shortness 02/14/25 05/13/25 Rx aerosol inhaler of breath or wheezing #8.5 grams fluticasone furoate 100 1 inh inhalation DAILY #60 ea 03/17/25 05/13/25 Rx mcg-vilanterol 25 mcg/dose inhalation powder (Breo Ellipta) famotidine 40 mg tablet 40 mg PO DAILY 04/03/25 05/13/25 History pantoprazole 40 mg tablet,delayed 40 mg PO DAILY #30 tabs 05/08/25 05/13/25 Rx release cefdinir 300 mg capsule 300 mg PO Q12H 6 days #12 caps 05/10/25 05/13/25 Rx sucralfate 1 gram tablet (Carafate) 1 g PO BID 4 weeks #56 tabs 05/10/25 05/13/25 Rx peppermint oil 1 cap PO BID #60 caps 05/12/25 05/13/25 Rx Gaviscon 1 dose PO DIRECTED 05/13/25 05/13/25 History mirtazapine 15 mg tablet 15 mg PO DAILY PRN Other 05/13/25 05/13/25 History Patient History Medical History Neoplasm of skin of elbow Screening for breast cancer Broken femur (~03/28/22) Fall Closed hip fracture (~03/15/21) Acute right hip pain Hip fracture (~03/15/21) Microscopic hematuria History of basal cell carcinoma History of squamous cell carcinoma Lesion of plantar nerve, right lower limb Shortness of breath Hx of migraine with aura Hx of endometriosis Hx of complications due to general anesthesia Hx of basal cell carcinoma Hx of hematuria Surgical History History of tubal ligation Hx of tonsillectomy H/O colonoscopy Hx of cholecystectomy Family History Mother Cancer Grandmother (Maternal) Stroke Grandfather (Paternal) Heart disease Brother Prostate cancer Sister Breast cancer Other Bladder cancer Gastrointestinal bleeding Hypertension Kidney stones Multiple sclerosis Social History Smoking Status: Former smoker Tobacco Type: Cigarettes Age Started Using Tobacco: 22; Age Quit Using Tobacco: 29; packs per day: 1; Hx Alcohol Use: Yes Alcohol type: beer Hx Substance Use: No Preferred Language: Israeli Communication Ability: Effective [employer]illing [employer] Professional Required: No Beliefs That Will Affect Care: None marital status: Current Living Situation: Spouse current occupational status: retired Feels Safe at Home: Yes Seatbelt Use: always Sunscreen Use: Yes Assistive Devices: None Review of Systems Review of Systems: All systems reviewed & are unremarkable except as noted in HPI & below Physical Exam Physical Exam: Pleasant female in no distress Constitutional: WD/WN, vitals as above Respiratory: normal respiratory effort, lungs clear to auscultation Cardiovascular: RRR, no murmur, no edema Gastrointestinal (Abdomen): Inspection/Auscultation: abdomen normal to inspection Percussion/Palpation: + abdomen tender (in the right upper abdomen) and abdomen soft; no hepatosplenomegaly Results & Data Vital Signs (Past 12 Hours) Vital Signs Temp Pulse Pulse Resp BP Pulse Ox O2 Del Method 05/14/25 08:22 36.7 C 60 18 99/51 L 96 Room Air 05/14/25 05:37 64 05/14/25 05:36 36.9 C 05/14/25 04:00 38.0 C H 87 20 125/70 94 Room Air 05/13/25 23:08 37.2 C 77 20 107/49 L 95 Room Air 05/13/25 21:48 79 Laboratory Results 05/14/25 05/13/25 05/13/25 Range/Units 08:10 Unknown 10:45 WBC 8.55 (4.8-10.8) K/ul RBC 3.15 L (4.20-5.40) M/uL Hgb 10.2 L (12.0-16.0) g/dl Hct 31.0 L (37.0-47.0) % MCV 98.4 (80.0-100.0) fL MCH 32.4 (25.0-34.0) pg MCHC 32.9 (32.0-36.0) g/dL RDW Std Deviation 47.2 H (36.4-46.3) fL RDW Coeff of Rod 13.2 (11.5-14.5) % Plt Count 196 (130-400) K/uL MPV 9.9 (9.4-12.4) fL PT (9.0-12.0) Seconds INR (0.9-1.1) APTT (21-31) Seconds PTT Ratio Sodium 141 (136-145) mmol/L Potassium 3.9 (3.5-5.1) mmol/L Chloride 111 H (98-107) mmol/L Carbon Dioxide 24 (21-32) mmol/L Anion Gap 6 (3-11) BUN 8 (6-23) mg/dl Creatinine 0.88 (0.6-1.2) mg/dl Est Cr Clr Drug Dosing 50.7 ml/min eGFR 67.22 BUN/Creatinine Ratio 9.1 L (10-20) Glucose 92 (70-99(Fasting)) mg/dl Calcium 8.1 L (8.6-10.3) mg/dl Magnesium (1.7-2.4) mg/dl Total Bilirubin (0.2-1.0) mg/dl AST (13-39) U/L ALT (7-52) U/L Alkaline Phosphatase (34-104) U/L Troponin I High Sens 86.3 H* D 116.1 H* D (0-14) pg/ml Total Protein (6.0-8.3) gm/dl Albumin (3.4-5.0) gm/dl Globulin (2.5-4.0) gm/dl Albumin/Globulin Ratio (0.9-2) Lipase (11-82) U/L Procalcitonin (0-0.5) ng/ml Urine Color Yellow Urine Appearance Clear (Clear) Urine pH 6.0 (4.5-7.5) Ur Specific [place] 1.028 (1.000-1.030) Urine Protein 1+ H (Negative) Urine Glucose (UA) Negative (Negative) Urine Ketones 3+ H (Negative) Urine Blood Negative (Negative) Urine Nitrite Negative (Negative) Urine Bilirubin Negative (Negative) Urine Urobilinogen Negative (Negative) Ur Leukocyte Esterase Negative (Negative) Urine WBC (Auto) 0-5 (0-5) /hpf Urine RBC (Auto) 3-5 H (0-2) /hpf U Hyaline Cast (Auto) 3-5 H (0-2) /lpf U Epithel Cells (Auto) 3-5 H (0-2) /hpf Urine Bacteria (Auto) None Seen (None Seen) Urine Comment 05/13/25 Range/Units 08:50 WBC (4.8-10.8) K/ul RBC (4.20-5.40) M/uL Hgb (12.0-16.0) g/dl Hct (37.0-47.0) % MCV (80.0-100.0) fL MCH (25.0-34.0) pg MCHC (32.0-36.0) g/dL RDW Std Deviation (36.4-46.3) fL RDW Coeff of Rod (11.5-14.5) % Plt Count (130-400) K/uL MPV (9.4-12.4) fL PT 10.7 (9.0-12.0) Seconds INR 1.0 (0.9-1.1) APTT 25 (21-31) Seconds PTT Ratio 0.9 Sodium 136 (136-145) mmol/L Potassium 3.4 L (3.5-5.1) mmol/L Chloride 105 (98-107) mmol/L Carbon Dioxide 19 L (21-32) mmol/L Anion Gap 12 H (3-11) BUN 14 (6-23) mg/dl Creatinine 0.84 (0.6-1.2) mg/dl Est Cr Clr Drug Dosing 52.5 ml/min eGFR 71.08 BUN/Creatinine Ratio 16.7 (10-20) Glucose 110 H (70-99(Fasting)) mg/dl Calcium 8.7 (8.6-10.3) mg/dl Magnesium 1.8 (1.7-2.4) mg/dl Total Bilirubin 0.6 (0.2-1.0) mg/dl AST 17 (13-39) U/L ALT 15 (7-52) U/L Alkaline Phosphatase 82 (34-104) U/L Troponin I High Sens 47.8 H (0-14) pg/ml Total Protein 6.1 (6.0-8.3) gm/dl Albumin 3.3 L (3.4-5.0) gm/dl Globulin 2.8 (2.5-4.0) gm/dl Albumin/Globulin Ratio 1.2 (0.9-2) Lipase 24 (11-82) U/L Procalcitonin 0.55 H (0-0.5) ng/ml Urine Color Urine Appearance (Clear) Urine pH (4.5-7.5) Ur Specific [place] (1.000-1.030) Urine Protein (Negative) Urine Glucose (UA) (Negative) Urine Ketones (Negative) Urine Blood (Negative) Urine Nitrite (Negative) Urine Bilirubin (Negative) Urine Urobilinogen (Negative) Ur Leukocyte Esterase (Negative) Urine WBC (Auto) (0-5) /hpf Urine RBC (Auto) (0-2) /hpf U Hyaline Cast (Auto) (0-2) /lpf U Epithel Cells (Auto) (0-2) /hpf Urine Bacteria (Auto) (None Seen) Urine Comment Diagnostic Findings Chest X-Ray 05/13/25 08:56 XR chest 1V portable CLINICAL HISTORY: fever, cough - eval pneumonia COMPARISON STUDY: 05/10/2025 FINDINGS: Heart size and pulmonary vasculature are normal. Stable small hiatal hernia. There is no consolidation or pleural effusion. No pneumothorax. Stable old left-sided rib fractures. IMPRESSION: No pneumonia seen. ACT 112: Negative or not required by law. Electronically signed by: Maico Alcocer M.D. 05/13/2025 9:21 AM Abdomen/Pelvis CT 05/13/25 10:[address] WITH IV CONTRAST CT DOSE: 1504 HISTORY: upper abdominal pain, fever, elev trop TECHNIQUE: Multiaxial CT images of the abdomen and pelvis were performed fo llowing the IV administration of 115 cc of Optiray, A dose lowering technique was utilized adhering to the principles of ALARA. COMPARISON STUDY: 05/09/2025 FINDINGS: ABDOMEN: There is nonopacification, thickened wall, and inflammation at the left portal vein and smaller branches consistent with left portal vein thrombus/thrombophlebitis. Right and main portal vein are widely patent with no evidence of thrombus. There are a few stable tiny liver cysts. Gallbladder is nonvisualized. Spleen, pancreas, and adrenal glands are unremarkable. Kidneys show no hydronephrosis. There are scattered atherosclerotic calcifications. No abdominal aortic aneurysm. Stable [id number] hiatal hernia. Pelvis: 12 cm oval cystic mass in the low pelvis is stable, likely adnexal cyst. Urinary bladder is decompressed. There is sigmoid diverticulosis. No acute diverticulitis. No bowel inflammation or obstruction. No free fluid, free air, or abscess. No enlarged adenopathy. Osseous structures: Right femoral gamma nail again seen. No acute osseous findings seen. IMPRESSION: 1. Left portal vein thrombus/thrombophlebitis. 2. No other acute findings seen. Otherwise as described. ACT 112: Negative or not required by law. The above report was generated using voice recognition software. It may contain grammatical, syntax or spelling errors. Electronically signed by: Maico Alcocer M.D. 05/13/2025 11:05 AM Chest CTA 05/13/25 10:07 CT angio chest PE protocol CT DOSE: 1503.75 mGy.cm HISTORY: PE. TECHNIQUE: Multiple CTA images of the chest were obtained after the intravenous administration of 115 ml Optiray. Coronal and sagittal MIPS were obtained from the axial data set and were submitted for review. All measurements were obtained according to NASCET criteria. A dose lowering technique was utilized adhering to the principles of ALARA. COMPARISON STUDY: None FINDINGS: There is a moderate hiatal hernia. There is mild atelectasis or scarring at the left lung base. There is no pulmonary consolidation or pleural effusion. No pneumothorax. There are a few scattered small pulmonary nodules, largest a subpleural nodule adjacent to the diaphragm at the left lung base measuring 5 mm series 4 image 48. There is no thoracic aortic dissection or aneurysm. No pulmonary embolism. No pericardial effusion. There is a possible 1.5 cm nodule at the left thyroid lobe. No enlarged adenopathy seen. There are a few old healed left-sided rib fractures. No acute osseous finding seen. IMPRESSION: No pulmonary embolism seen. ACT 112: Negative or not required by law. The above report was generated using voice recognition software. It may contain grammatical, syntax or spelling errors. Electronically signed by: Maico Alcocer M.D. 05/13/2025 10:54 AM
--- NOTE | 2025-05-14 10:25 | Hospitalist Progress Note ---
Date of Service May 14, 2025 Assessment & Plan (1) Portal vein thrombosis: Plan: -CT a/p showing left portal vein thrombus/thrombophlebitis -started lovenox 1mg/kg Q12 -emperic coverage with rocephin/flagyl -f/u blood cultures -GI consult appreciated (2) Fever: Plan: -recent UTI treated with cefdinir -UA negative -on rocephin -f/u urine C&S/blood cultures (3) Elevated troponin: Plan: -troponin 116 -pt with epigastric pain, likely 2nd to portal vein throbosis, however must r/o cardiogenic etiology -EKG NSR no ST-changes -echo pending -cardiology consulted (4) COPD (chronic obstructive pulmonary disease): Plan: -con't fluticasone furoate -albuterol (5) GERD (gastroesophageal reflux disease): Plan: -protonix Admission and Anticipated Discharge Date Admission Date: May 13, 2025 Review of Systems Review of Systems: CONST: afebrile overnight HENT: Negative for neck pain/stiffness, headache, congestion, sore throat, swelling. EYES: Negative for discharge/pain or vision changes. RESP: Negative for cough/hemoptysis and shortness of breath. CV: Negative chest pain, difficulty breathing, palpitations. ABD: reducted abdominal pain : Negative increase frequency, dysuria, blood in urine or stool. MUSC: Negative for muscle aches, edema. SKIN: Negative rash, lesions/sores. NEURO: Negative headache, dizziness, weakness. Physical Exam Physical Exam: CONST: Negative for fever, body aches and chills. HENT: Negative for neck pain/stiffness, headache, congestion, sore throat, swelling. EYES: Negative for discharge/pain or vision changes. RESP: Negative for cough/hemoptysis and shortness of breath. CV: Negative chest pain, difficulty breathing, palpitations. ABD: Negative pain, nausea, vomiting. : Negative increase frequency, dysuria, blood in urine or stool. MUSC: Negative for muscle aches, edema. SKIN: Negative rash, lesions/sores. NEURO: Negative headache, dizziness, weakness. Results & Data Results & Data Vital Signs (Past 12 Hours) Vital Signs Temp Pulse Pulse Resp BP Pulse Ox O2 Del Method 05/14/25 08:22 36.7 C 60 18 99/51 L 96 Room Air 06/22/25 05:37 64 05/14/25 05:36 36.9 C 05/14/25 04:00 38.0 C H 87 20 125/70 94 Room Air 05/13/25 23:08 37.2 C 77 20 107/49 L 95 Room Air PG Care Time/CCT Total # of Minutes Spent Total Time Spent with Patient: Total time spent is greater than 50% in coordination of care (as documented) at patient's floor/unit and/or counseling patient: Coding Level of Care Code 90273 SUB INP/OBS CARE 2/35MIN Diagnoses Portal vein thrombosis I81 Fever R50.9 Fever type: unspecified Elevated troponin R79.89 COPD (chronic obstructive pulmonary disease) J44.9 GERD (gastroesophageal reflux disease) K21.9 (2) Fever Fever type: unspecified Qualified Code(s): R50.9 - Fever, unspecified
--- NOTE | 2025-05-14 12:05 | Cardiology Consultation ---
Date of Consultation May 14, 2025 Assessment & Plan (1) Elevated troponin: Plan Elevated troponin: Her high-sensitivity troponin was normal on initial presentation several days ago, on this presentation the troponin was elevated. Her electrocardiogram is not normal but is very similar to several years ago with inferolateral T wave abnormalities. I do not believe she is having an acute ischemic event currently, but I cannot exclude the possibility that she has underlying coronary artery disease (which would be very common at her age) with possible demand ischemia causing the troponin rise. In the absence of preceding exertional symptoms the role for further evaluation is questionable, however under the circumstances we might want to consider a stress test in the future. I would not do that in the next day or 2 and it could be done as an outpatient. Invasive evaluation is not indicated. I do want to follow her troponin trend over the next 12 to 24 hours however. History of Present Illness Reason for Consultation: Elevated troponin Attending Physician: Francois Ruth MD History of Present Illness This is a 80-year-old woman presenting to the emergency room May 10, 2025 with fever possibly due to pneumonia or UTI. She was treated and discharged but presented again May 13, 2025 with continued fevers and rigor as well as vomiting and abdominal discomfort. As part of her evaluation troponin measurements were performed. Her high-sensitivity troponin on May 10, 2025 at her initial presentation was normal at 6.9, however here on May 13, 2025 at 0850 the measurement was 48. This increased to 116 two hours later and then dropped back to 86 24 hours after presentation. Her electrocardiogram on May 13, 2025 on presentation shows sinus rhythm at 75 bpm with poor R wave progression and inferolateral T wave abnormalities. In comparison on May 10, 2025 there is very little difference, And in fact the current electrocardiogram is very similar to February 2021. She did have an echocardiogram performed May 15, 2020 which showed no wall motion abnormalities. I discussed cardiovascular symptoms with her in detail and cannot elicit any, she denies prior dyspnea on exertion, exertional chest discomfort, exercise intolerance or other signs of angina. She does not have heart failure symptoms and does not have palpitations, lightheadedness or dizziness in the past. Allergies Allergy/AdvReac Type Severity Reaction Status Date / Time oxycodone [From Percocet] AdvReac Unknown Verified 05/13/25 15:34 Penicillins AdvReac Unknown Verified 05/13/25 15:34 verapamil AdvReac Unknown Verified 05/13/25 15:34 Codeine Derivatives Allergy Mild Unknown Uncoded 05/13/25 15:34 Home Medications Medication Instructions Recorded Confirmed Type calcium carbonate 500 mg PO BID 04/02/21 05/13/25 History cholecalciferol (vitamin D3) 50 2,000 unit PO DAILY 04/09/22 05/13/25 History mcg (2,000 unit) capsule escitalopram oxalate 10 mg tablet 20 mg PO DAILY 01/22/23 05/13/25 History albuterol sulfate 90 mcg/actuation 2 inh inhalation Q4H PRN shortness 02/14/25 05/13/25 Rx aerosol inhaler of breath or wheezing #8.5 grams fluticasone furoate 100 1 inh inhalation DAILY #60 ea 03/17/25 05/13/25 Rx mcg-vilanterol 25 mcg/dose inhalation powder (Breo Ellipta) famotidine 40 mg tablet 40 mg PO DAILY 04/03/25 05/13/25 History pantoprazole 40 mg tablet,delayed 40 mg PO DAILY #30 tabs 05/08/25 05/13/25 Rx release cefdinir 300 mg capsule 300 mg PO Q12H 6 days #12 caps 05/10/25 05/13/25 Rx sucralfate 1 gram tablet (Carafate) 1 g PO BID 4 weeks #56 tabs 05/10/25 05/13/25 Rx peppermint oil 1 cap PO BID #60 caps 05/12/25 05/13/25 Rx Gaviscon 1 dose PO DIRECTED 05/13/25 05/13/25 History mirtazapine 15 mg tablet 15 mg PO DAILY PRN Other 05/13/25 05/13/25 History Patient History Medical History Neoplasm of skin of elbow Screening for breast cancer Broken femur (~03/28/22) Fall Closed hip fracture (~03/15/21) Acute right hip pain Hip fracture (~03/15/21) Microscopic hematuria History of basal cell carcinoma History of squamous cell carcinoma Lesion of plantar nerve, right lower limb Shortness of breath Hx of migraine with aura Hx of endometriosis Hx of complications due to general anesthesia Hx of basal cell carcinoma Hx of hematuria Surgical History History of tubal ligation Hx of tonsillectomy H/O colonoscopy Hx of cholecystectomy Family History Mother Cancer Grandmother (Maternal) Stroke Grandfather (Paternal) Heart disease Brother Prostate cancer Sister Breast cancer Other Bladder cancer Gastrointestinal bleeding Hypertension Kidney stones Multiple sclerosis Social History Smoking Status: Former smoker Tobacco Type: Cigarettes Age Started Using Tobacco: 22; Age Quit Using Tobacco: 29; packs per day: 1; Hx Alcohol Use: Yes Alcohol type: beer Hx Substance Use: No Preferred Language: Portuguese Communication Ability: Effective Chassis Driver Required: No Beliefs That Will Affect Care: None marital status: Current Living Situation: Spouse current occupational status: retired Feels Safe at Home: Yes Seatbelt Use: always Sunscreen Use: Yes Assistive Devices: None Review of Systems Review of Systems: All systems reviewed & are unremarkable except as noted in HPI & below Physical Exam Physical Exam: Constitutional: Alert, cooperative and in no distress. HEENT: Unremarkable Neck: No jugular venous distention, carotid pulses are normal and equal bilaterally without bruits. Pulmonary: Clear to auscultation bilaterally. Cardiac: Regular rhythm with no murmur, gallop or rub. Abdomen: Soft, moderate right upper quadrant tenderness with normal bowel sounds. Extremities: No edema. Neurologic: No focal findings. Skin: No rash, ecchymoses or petechiae. Results & Data Vital Signs (Past 12 Hours) Vital Signs Temp Pulse Pulse Resp BP Pulse Ox O2 Del Method 05/14/25 11:30 36.6 C 72 20 107/68 96 Room Air 05/14/25 08:22 36.7 C 60 18 99/51 L 96 Room Air 05/14/25 05:37 64 05/14/25 05:36 36.9 C 05/14/25 04:00 38.0 C H 87 20 125/70 94 Room Air Laboratory Results Cardiac Enzymes 05/14/25 Range/Units 08:10 Troponin I High Sens 86.3 H* D (0-14) pg/ml CBC 05/14/25 Range/Units 08:10 WBC 8.55 (4.8-10.8) K/ul RBC 3.15 L (4.20-5.40) M/uL Hgb 10.2 L (12.0-16.0) g/dl Hct 31.0 L (37.0-47.0) % Plt Count 196 (130-400) K/uL Comprehensive Metabolic Panel 05/14/25 Range/Units 08:10 Sodium 141 (136-145) mmol/L Potassium 3.9 (3.5-5.1) mmol/L Chloride 111 H (98-107) mmol/L Carbon Dioxide 24 (21-32) mmol/L BUN 8 (6-23) mg/dl Creatinine 0.88 (0.6-1.2) mg/dl Glucose 92 (70-99(Fasting)) mg/dl Calcium 8.1 L (8.6-10.3) mg/dl Intake and Output 05/13/25 05/14/25 05/14/25 22:59 06:59 14:59 Intake Total 250 / 2600 1250 / 2600 Balance 250 / 2600 1250 / 2600 Intake: IV 250 / 2450 1100 / 2450 Sodium Chloride 0.9% 1,000 ml @ 1000 / 1000 80 mls/hr IV .[id number] SONJA Rx#: [id number] cefTRIAXone SODIUM 2,000 mg In 50 / 50 50 ml @ 100 mls/hr IV Q24H SONJA Rx#:[id number] metroNIDAZOLE 500 mg In 100 ml 200 / 300 100 / 300 @ 100 mls/hr IV Q8H SONJA Rx#: [id number] Oral 150 / 150 Other: Weight 73.8 kg Weight Measurement Method Built in [facility] Diagnostic Findings Telemetry: Sinus rhythm, rate varies 70 to 100 bpm. PG Care Time/CCT Total # of Minutes Spent Total Time Spent with Patient: Total time spent is greater than 50% in coordination of care (as documented) at patient's floor/unit and/or counseling patient: Coding Level of Care Code 22411 INT INP/OBS CARE 2/55MIN Diagnoses Elevated troponin R79.89
[2025-05-14] MEDS ORDERED: Nursing to Pharmacy Communication SCH (15:00)
[2025-05-15 07:01] LABS: Hematocrit (blood only) 30.1 % (37.0-47.0); Hemoglobin 10.2 g/dl (12.0-16.0); Mean Corpuscular Hemoglobin 32.9 pg (25.0-34.0); Mean Corpuscular Hgb Conc 33.9 g/dL (32.0-36.0); Mean Corpuscular Volume 97.1 fL (80.0-100.0); Mean Platelet Volume 10.3 fL (9.4-12.4); Platelet Count 214 K/uL (130-400); RDW Coefficient of Variation 13.2 % (11.5-14.5); RDW Standard Deviation 47.6 fL (36.4-46.3); White Blood Count 9.28 K/ul (4.8-10.8)
[2025-05-15 07:21] LABS: BUN Creatinine Ratio 10.7 (10-20); Creatinine Clr Calc Pharmacy 52.4 ml/min; Potassium 3.6 mmol/L (3.5-5.1)
[2025-05-15 08:03] VITALS: RESP 24
--- NOTE | 2025-05-15 09:33 | Hospitalist Progress Note ---
Date of Service May 15, 2025 Assessment & Plan (1) Portal vein thrombosis: Plan: -CT a/p showing left portal vein thrombus/thrombophlebitis -started lovenox 1mg/kg Q12 -emperic coverage with rocephin/flagyl -blood cultures negative -GI consult appreciated (2) Fever: Plan: -recent UTI treated with cefdinir -UA negative -on rocephin -f/u urine C&S/blood cultures (3) Elevated troponin: Plan: -troponin 116 -pt with epigastric pain, likely 2nd to portal vein throbosis, however must r/o cardiogenic etiology -EKG NSR no ST-changes -echo pending -cardiology consulted -recommending out patient stress test, no acute intervention -troponin trending down. (4) COPD (chronic obstructive pulmonary disease): Plan: -con't fluticasone furoate -albuterol (5) GERD (gastroesophageal reflux disease): Plan: -protonix Admission and Anticipated Discharge Date Admission Date: May 13, 2025 Subjective No events overnight. Pt stating abdominal pain reduced. Review of Systems Review of Systems: CONST: afebrile overnight HENT: Negative for neck pain/stiffness, headache, congestion, sore throat, swelling. EYES: Negative for discharge/pain or vision changes. RESP: Negative for cough/hemoptysis and shortness of breath. CV: Negative chest pain, difficulty breathing, palpitations. ABD: reducted abdominal pain : Negative increase frequency, dysuria, blood in urine or stool. MUSC: Negative for muscle aches, edema. SKIN: Negative rash, lesions/sores. NEURO: Negative headache, dizziness, weakness. Physical Exam Physical Exam: CONST: Negative for fever, body aches and chills. HENT: Negative for neck pain/stiffness, headache, congestion, sore throat, swelling. EYES: Negative for discharge/pain or vision changes. RESP: Negative for cough/hemoptysis and shortness of breath. CV: Negative chest pain, difficulty breathing, palpitations. ABD: Negative pain, nausea, vomiting. : Negative increase frequency, dysuria, blood in urine or stool. MUSC: Negative for muscle aches, edema. SKIN: Negative rash, lesions/sores. NEURO: Negative headache, dizziness, weakness. Results & Data Results & Data Vital Signs (Past 12 Hours) Vital Signs Temp Pulse Pulse Resp BP Pulse Ox O2 Del Method 05/15/25 08:03 36.9 C 65 24 115/71 95 Room Air 05/15/25 07:00 59 L 05/15/25 03:00 37.7 C H 85 20 146/80 H 93 Room Air 05/14/25 23:35 37.7 C H 75 20 102/61 93 Room Air 05/14/25 21:44 71 PG Care Time/CCT Total # of Minutes Spent Total Time Spent with Patient: Total time spent is greater than 50% in coordination of care (as documented) at patient's floor/unit and/or counseling patient: Coding Level of Care Code 09604 SUB INP/OBS CARE 2/35MIN Diagnoses Portal vein thrombosis I81 Fever R50.9 Fever type: unspecified Elevated troponin R79.89 COPD (chronic obstructive pulmonary disease) J44.9 GERD (gastroesophageal reflux disease) K21.9 (2) Fever Fever type: unspecified Qualified Code(s): R50.9 - Fever, unspecified
[2025-05-15] MEDS: LACTOBACILLUS ACIDOPHILUS 1 GM PACK PO SCH (11:39)
[2025-05-15] MEDS: LOPERAMIDE HCL 2 MG CAP PO PRN (11:39)
[2025-05-15 11:44] VITALS: TEMP 98.2; O2SAT 94
--- NOTE | 2025-05-15 12:02 | Cardiology Progress Note ---
Date of Service May 15, 2025 Assessment & Plan (1) Elevated troponin: Plan Elevated troponin: Her high-sensitivity troponin was normal on initial presentation several days ago at her first recent ER presentation, on this presentation the troponin was elevated. Her electrocardiogram is not normal but is very similar to several years ago with inferolateral T wave abnormalities. Trending her troponin shows a gradual decrease following the measurement shortly after admission. I do not believe she is having an acute ischemic event currently, but I cannot exclude the possibility that she has underlying coronary artery disease (which would be very common at her age) with possible demand ischemia causing the troponin rise. In the absence of preceding exertional symptoms the role for further evaluation is questionable, however under the circumstances we might want to consider a stress test in the future. She does not feel up to it now if she is very fatigued and I do not think it is necessary this admission. We can do it as an outpatient. Admission and Anticipated Discharge Date Admission Date: May 13, 2025 Subjective She is feeling very tired, and is in bed. No specific cardiovascular symptoms. Physical Exam Physical Exam: Constitutional: Alert, cooperative and in no distress. HEENT: Unremarkable Neck: No jugular venous distention, carotid pulses are normal and equal bilaterally without bruits. Pulmonary: Clear to auscultation bilaterally. Cardiac: Regular rhythm with no murmur, gallop or rub. Abdomen: Soft, moderate right upper quadrant tenderness with normal bowel sounds. Extremities: No edema. Neurologic: No focal findings. Skin: No rash, ecchymoses or petechiae. Results & Data Vital Signs (Past 12 Hours) Vital Signs Temp Pulse Pulse Resp BP Pulse Ox O2 Del Method 05/15/25 11:43 36.8 C 61 24 99/60 L 94 Room Air 05/15/25 08:03 36.9 C 65 24 115/71 95 Room Air 05/15/25 07:00 59 L 05/15/25 03:00 37.7 C H 85 20 146/80 H 93 Room Air Laboratory Results Cardiac Enzymes 05/14/25 05/15/25 05/15/25 Range/Units 15:47 00:33 06: Troponin I High Sens 42.8 H D 37.9 H 31.6 H (0-14) pg/ml CBC 05/15/25 Range/Units 06:23 WBC 9.28 (4.8-10.8) K/ul RBC 3.10 L (4.20-5.40) M/uL Hgb 10.2 L (12.0-16.0) g/dl Hct 30.1 L (37.0-47.0) % Plt Count 214 (130-400) K/uL Comprehensive Metabolic Panel 05/15/25 Range/Units 06:23 Sodium 139 (136-145) mmol/L Potassium 3.6 (3.5-5.1) mmol/L Chloride 112 H (98-107) mmol/L Carbon Dioxide 20 L (21-32) mmol/L BUN 9 (6-23) mg/dl Creatinine 0.84 (0.6-1.2) mg/dl Glucose 93 (70-99(Fasting)) mg/dl Calcium 8.0 L (8.6-10.3) mg/dl Intake and Output 05/14/25 05/15/25 05/15/25 22:59 06:59 14:59 Intake Total 1544 / 3070.667 1116.667 / 3070.667 100 / 100 Balance 1544 / 3070.667 1116.667 / 3070.667 100 / 100 Intake: IV 1184 / 2200.667 966.667 / 2200.667 100 / 100 Sodium Chloride 0.9% 1,000 ml @ 984 / 1950.667 966.667 / 1950.667 80 mls/hr IV .[id number] SONJA Rx#: [id number] metroNIDAZOLE 500 mg In 100 ml 200 / 200 100 / 100 @ 100 mls/hr IV Q8H SONJA Rx#: [id number] Oral 360 / 870 150 / 870 Other: Weight 71.8 kg Weight Measurement Method Built in [facility] Diagnostic Findings Telemetry: Sinus rhythm, no significant arrhythmia. This morning's electrocardiogram shows sinus rhythm at 70 bpm with no arrhythmia. She has nonspecific inferolateral ST-T abnormalities which have not changed significantly since admission. PG Care Time/CCT Total # of Minutes Spent Total Time Spent with Patient: Total time spent is greater than 50% in coordination of care (as documented) at patient's floor/unit and/or counseling patient: Coding Level of Care Code 08683 SUB INP/OBS CARE 2/35MIN Diagnoses Elevated troponin R79.89
--- NOTE | 2025-05-15 12:31 | Gastroenterology Progress Note ---
Date of Service May 15, 2025 Assessment & Plan (1) Portal vein thrombosis: Plan: Seems to be improving. Hopefully home soon Admission and Anticipated Discharge Date Admission Date: May 13, 2025 Subjective Feeling better. starting to get some side effects from antibiotics Physical Exam Physical Exam: She looks comfortable Constitutional: WD/WN, vitals as above Results & Data Vital Signs (Past 12 Hours) Vital Signs Temp Pulse Pulse Resp BP Pulse Ox O2 Del Method 05/15/25 11:43 36.8 C 61 24 99/60 L 94 Room Air 05/15/25 08:03 36.9 C 65 24 115/71 95 Room Air 05/15/25 07:00 59 L 05/15/25 03:00 37.7 C H 85 20 146/80 H 93 Room Air
--- NOTE | 2025-05-15 14:46 | Discharge Summary ---
Discharge Summary Date of Service May 15, 2025 Principal Dx & Hospital Course #1 = Principal Diagnosis (1) Portal vein thrombosis: -CT a/p showing left portal vein thrombus/thrombophlebitis -started lovenox 1mg/kg Q12 -emperic coverage with rocephin/flagyl -blood cultures negative -GI consult appreciated -will discharge on eliquis (2) Fever: -recent UTI treated with cefdinir -UA negative -on rocephin -f/u urine C&S/blood cultures (3) Elevated troponin: -troponin 116 -pt with epigastric pain, likely 2nd to portal vein throbosis, however must r/o cardiogenic etiology -EKG NSR no ST-changes -echo pending -cardiology consulted -recommending out patient stress test, no acute intervention -troponin trending down. (4) COPD (chronic obstructive pulmonary disease): -con't fluticasone furoate -albuterol (5) GERD (gastroesophageal reflux disease): -protonix Admission HPI Per Admitting Provider Pt is a 80 y/o female with pmh of COPD, GERD, recent admission to ER 05/10 and treatment of UTI with cefdinir who presents with fever of 102 abdominal pain and nausea/vomiting over the past few days. In the ER patients labs showed NL WBC, with elevated troponin of 116, UA negative for UTI. Pt denies any chest pain or SOB. EKG showing NSR with on ST-T changes. CTA chest negative for PE, however CT a/p showing left protal vein thrombus/thrombophlebitis with no other acute findings. Pt placed on lovenox Q12 and started on rocephin/flagyl. Discharge Exam CONST: Negative for fever, body aches and chills. HENT: Negative for neck pain/stiffness, headache, congestion, sore throat, swelling. EYES: Negative for discharge/pain or vision changes. RESP: Negative for cough/hemoptysis and shortness of breath. CV: Negative chest pain, difficulty breathing, palpitations. ABD: Negative pain, nausea, vomiting. : Negative increase frequency, dysuria, blood in urine or stool. MUSC: Negative for muscle aches, edema. SKIN: Negative rash, lesions/sores. NEURO: Negative headache, dizziness, weakness. Discharge Plan Discharge Items Patient Disposition: Home - Self-Care Reason For Visit: FEVER,ABDOMINAL PAIN Discharge Diagnosis: Portal vein thrombosis, UTI Condition on Discharge: Fair Activity: Resume your previous activity Non-emergency contact: Primary Care Provider Call non-emergency contact if: you have any medication questions Follow-up/Referrals: Amado Watson MD [Primary Care Provider] - Diet: Regular Addtl Attending Provider Instructions: Follow up with PMD in 2 weeks Pending Studies at Discharge: No Stand-Alone Forms: My [facility] [employer], Smoking Cessation Medications and DC Order Prescriptions: New Eliquis 5 mg (74 tabs) tablets,dose pack 5 mg PO BID Qty: 74 0RF cefdinir 300 mg capsule 300 mg PO BID 5 Days Qty: 10 0RF Continued albuterol sulfate 90 mcg/actuation HFA aerosol inhaler 2 inh inhalation Q4H PRN (Reason: shortness of breath or wheezing) Qty: 8.5 5RF escitalopram oxalate 10 mg tablet 20 mg PO DAILY calcium carbonate 500 mg calcium (1,250 mg) tablet 500 mg PO BID cholecalciferol (vitamin D3) 50 mcg (2,000 unit) capsule 2,000 unit PO DAILY famotidine 40 mg tablet 40 mg PO DAILY pantoprazole 40 mg tablet,delayed release (DR/EC) 40 mg PO DAILY Qty: 30 2RF peppermint oil Capsule,Delayed Release(Dr/Ec) 1 cap PO BID Qty: 60 2RF Rx Instructions: hasnt started it yet fluticasone furoate-vilanterol [Breo Ellipta] 100-25 mcg/dose blister with device 1 inh inhalation DAILY Qty: 60 5RF sucralfate [Carafate] 1 gram tablet 1 g PO BID 28 Days Qty: 56 0RF Rx Instructions: May substitute as a slurry cefdinir 300 mg capsule 300 mg PO Q12H 6 Days Qty: 12 0RF mirtazapine 15 mg tablet 15 mg PO DAILY PRN (Reason: Other) Gaviscon 1 dose PO DIRECTED Rx Instructions: otc Discharge Orders: Discharge Order (Routine); Ordered 05/15/25 Ordered By: Francois Ruth Admission Data Admit Date/Time: 05/13/25 11:52 Attending Provider: Francois Ruth Admit Provider: Francois Ruth Primary Care Provider: Amado Watson V. Other Providers: Francois Ruth; Jalil Pollock Jr; Cody Vazquez Hospital Stay Data Consultations 05/13/25 11:44 ED Decision to Admit Stat 05/13/25 11:46 Consult Gastroenterology Routine 05/13/25 13:27 Consult Cardiology Routine Diagnostic Imagining Performed 05/13/25 10:07 CT abd pelvis IV con only Stat CT angio chest PE protocol Stat Pending Results Patient Have Any Pending Studies at Discharge: No Discharge Instructions Given to Patient (Per Discharging Provider) Follow up with PMD in 2 weeks Total Time Total Time Spent Total Time Spent (In Minutes): 50 Coding Level of Care Code 63884 INP/OBS DISCH >30 MIN Diagnoses Portal vein thrombosis I81 Fever R50.9 Fever type: unspecified Elevated troponin R79.89 COPD (chronic obstructive pulmonary disease) J44.9 GERD (gastroesophageal reflux disease) K21.9
[2025-05-15 14:50] VITALS: BP 120/67; PULSE 61
--- NOTE | 2025-05-15 16:47 | XCELERA ---
[id number]
--- NOTE | 2025-05-16 13:44 | Electrocardiogram Report ---
Test Reason : Blood Pressure : */* mmHG Vent. Rate : 75 BPM Atrial Rate : 75 BPM P-R Int : 142 ms QRS Dur : 74 ms QT Int : 386 ms P-R-T Axes : 32 52 -25 degrees QTcB Int : 431 ms Normal sinus rhythm Cannot rule out Anterior infarct , age undetermined Abnormal ECG When compared with ECG of 10-May-2025 17:08, Premature atrial complexes are no longer Present Inverted T waves have replaced nonspecific T wave abnormality in Lateral leads Confirmed by Cody Vazquez ([id number]) on 05/16/2025 1:44:07 PM Referred By: REFERRED SELF Confirmed By: Cody Vazquez
--- NOTE | 2025-05-16 16:24 | Electrocardiogram Report ---
Test Reason : Blood Pressure : */* mmHG Vent. Rate : 70 BPM Atrial Rate : 70 BPM P-R Int : * ms QRS Dur : 74 ms QT Int : 420 ms P-R-T Axes : * 60 10 degrees QTcB Int : 453 ms Sinus rhythm T wave abnormality, consider inferior ischemia Abnormal ECG When compared with ECG of 13-May-2025 10:16, (unconfirmed) T wave inversion no longer evident in Lateral leads Confirmed by Cody Vazquez ([id number]) on 05/16/2025 4:24:16 PM Referred By: REFERRED SELF Confirmed By: Cody Vazquez
== END 2025-05-15 15:19 | disposition home or self-care (01) | DRG 442 ==
LOC: ED 08:41 → 2W 11:52